=== PATIENT | female | born 1955 | race Caucasian/White ===

== ENCOUNTER → 2018-08-06 08:11 | Outpatient (CLI) | payer OTHER, SELFPAY ==
[2018-08-06 10:41] LABS: Anion Gap 7 (5-15); BUN 16 mg/dL (7-18); BUN/Creat Ratio 17.5 RATIO (10-20); Calcium,Total 8.9 mg/dL (8.5-10.1); Chloride 111 mmol/L (98-107); Cholesterol 145 mg/dL (200); Creatinine, Serum 0.92 mg/dL (0.55-1.02); EST Glomerular Filtration Rate 65 mL/min (>60); Est Glom Filt Rate - Afr Amer 79 mL/min (>60); Glucose 117 mg/dL (74-106); High Density Lipoprotein 47 mg/dL; Potassium 4.4 mmol/L (3.5-5.1); Sodium Level 143 mmol/L (136-145); Triglycerides 80 mg/dL; Very Low Density Lipoprotein 16 mg/dL (5-40)
[2018-08-06 10:44] LABS: Vitamin D,25 Hydroxy 23.4 ng/mL (29.95-100.01)
== END ==
PROVIDERS: Family Provider Family Medicine; PCP Family Medicine; Visit Provider Family Medicine
DX: Z00.00 Encounter for general adult medical examination without abnormal findings (principal)
CPT/HCPCS: 36415; 80048; 80061; 82306

== ENCOUNTER → 2019-08-09 09:36 | Outpatient (CLI) | payer OTHER, SELFPAY ==
[2017-10-25 11:29] VITALS: BMI 24.5
[2019-08-09 12:34] LABS: Hemoglobin A1c 5.9 % (4.2-6.3)
[2019-08-09 12:36] LABS: Vitamin D,25 Hydroxy 24.2 ng/mL (29.95-100.01)
[2019-08-09 12:40] LABS: ALB/GLOB Ratio 1.2 RATIO (0.9-2.4); AST(SGOT) 9 U/L (15-37); Alanine Aminotransfer ALT/SGPT 20 U/L (13-56); Albumin, Serum 3.6 g/dL (3.2-5.0); Alkaline Phosphatase 77 U/L (45-117); Anion Gap 5 (5-15); BUN 16 mg/dL (7-18); BUN/Creat Ratio 16.8 RATIO (10-20); Calcium,Total 8.8 mg/dL (8.5-10.1); Chloride 111 mmol/L (98-107); Cholesterol 175 mg/dL (200); Creatinine, Serum 0.95 mg/dL (0.55-1.02); EST Glomerular Filtration Rate 62 mL/min (>60); Est Glom Filt Rate - Afr Amer 75 mL/min (>60); Glucose 113 mg/dL (74-106); High Density Lipoprotein 61 mg/dL; Potassium 4.3 mmol/L (3.5-5.1); Protein, Total 6.6 g/dL (6.4-8.2); Sodium Level 143 mmol/L (136-145); Thyroid Stim Hormone (TSH) 2.03 uIU/mL (0.358-3.74); Triglycerides 80 mg/dL; Very Low Density Lipoprotein 16 mg/dL (5-40)
== END ==
PROVIDERS: Nurse Practitioner Family; Family Provider Family Medicine; PCP Family Medicine; Visit Provider Family Medicine
DX: Z00.00 Encounter for general adult medical examination without abnormal findings (principal); E55.9 Vitamin D deficiency, unspecified; R73.01 Impaired fasting glucose; R63.5 Abnormal weight gain
CPT/HCPCS: 36415; 80053; 80061; 82306; 83036; 84443

== ENCOUNTER → 2020-01-03 15:12 | Outpatient (CLI) | payer OTHER, SELFPAY ==
[2017-10-25 11:29] VITALS: BMI 24.5
--- NOTE | 2020-01-03 15:17 | RAD_ITS ---
STUDY: X-RAY CHEST REASON FOR EXAM: Female, 64 years old. sob and cough TECHNIQUE: PA and lateral views of the chest. COMPARISON: 10/25/2017 FINDINGS: The lungs are clear and expanded. There is no demonstrated pleural abnormality. Normal size heart. Normal mediastinum and juvenal. Normal visualized pulmonary arteries. Normal visualized aortic arch and descending thoracic aorta. Normal visualized thoracic spine. Normal visualized ribs, clavicles, and shoulders. There is no demonstrated abnormality of the visualized soft tissue structures of the upper abdomen. RAD/Chest PA and Lateral IMPRESSION: Normal x-ray examination of the chest. Electronically Signed: Tim Narvaez MD at 15:38 EST Tel , Service support ,
[2020-01-03 17:33] LABS: Absolute Lymphocyte Count 1.63 X10^3/uL (0.83-4.51); Absolute Neutrophil Count 3.1 X10^3/uL (2.0-7.7); Basophil# 0.02 X10^3/uL; Basophil% 0.4 % (0-1); Eosinophils% 1.8 % (0-5); Hematocrit 41.8 % (37-47); Hemoglobin 13.1 g/dL (12.0-15.0); Lymphocyte # 1.63 X10^3/ul (4.0); Lymphocyte % 29.9 % (19-41); Mean Corp Hgb Conc 31.3 g/dL (32-36); Mean Corpuscular Hgb 30.4 pg (27.0-32.0); Mean Platelet Vol. 9.7 fl (6.2-12.0); Monocyte# 0.61 X10^3/uL; Monocyte% 11.2 % (0-10); NRBC Flagged by Analyzer 0 % (0-5); Neutrophil # 3.07 X10^3/uL (2.7-7.7); Neutrophil % 56.3 % (47-70); Platelet Count 306 K/mm3 (150-450); RBC Distribution Width CV 12.7 % (11.6-14.6); RBC Distribution Width SD 45.3 fl (35.1-43.9); Red Blood Count 4.31 M/mm3 (4.2-5.4); White Blood Count 5.5 K/mm3 (4.4-11.0)
[2020-01-03 17:58] LABS: Vitamin D,25 Hydroxy 16.8 ng/mL (29.95-100.01)
[2020-01-03 18:06] LABS: ALB/GLOB Ratio 1.1 RATIO (0.9-2.4); AST(SGOT) 20 U/L (15-37); Alanine Aminotransfer ALT/SGPT 35 U/L (13-56); Albumin, Serum 3.7 g/dL (3.2-5.0); Alkaline Phosphatase 90 U/L (45-117); Anion Gap 4 (5-15); BUN 18 mg/dL (7-18); BUN/Creat Ratio 19.5 RATIO (10-20); Chloride 108 mmol/L (98-107); Creatinine, Serum 0.92 mg/dL (0.55-1.02); EST Glomerular Filtration Rate 65 mL/min (>60); Est Glom Filt Rate - Afr Amer 78 mL/min (>60); Globulin 3.3 g/dL (2.2-4.2); Glucose 93 mg/dL (74-106); Sodium Level 141 mmol/L (136-145); Thyroid Stim Hormone (TSH) 2.63 uIU/mL (0.358-3.74)
== END ==
PROVIDERS: PCP Family Medicine; Referring Provider Nurse Practitioner Adult Health; Visit Provider Nurse Practitioner Adult Health
DX: R06.09 Other forms of dyspnea (principal); E55.9 Vitamin D deficiency, unspecified; R53.83 Other fatigue
CPT/HCPCS: 36415; 71046; 80053; 82306; 84443; 85025

== ENCOUNTER → 2020-07-05 10:36 | Outpatient (CLI) | payer OTHER, SELFPAY ==
[2017-10-25 11:29] VITALS: BMI 24.5
[2020-07-05 12:47] LABS: Absolute Lymphocyte Count 1.62 X10^3/uL (0.83-4.51); Absolute Neutrophil Count 2.6 X10^3/uL (2.0-7.7); Basophil# 0.02 X10^3/uL; Basophil% 0.4 % (0-1); Eosinophil# 0.05 X10^3/uL; Eosinophils% 1.1 % (0-5); Hematocrit 41.7 % (37-47); Hemoglobin 13.2 g/dL (12.0-15.0); Lymphocyte # 1.62 X10^3/ul (4.0); Lymphocyte % 34.5 % (19-41); Mean Corp Hgb Conc 31.7 g/dL (32-36); Mean Corpuscular Hgb 30.7 pg (27.0-32.0); Mean Platelet Vol. 9.8 fl (6.2-12.0); Monocyte# 0.44 X10^3/uL; Monocyte% 9.4 % (0-10); NRBC Flagged by Analyzer 0 % (0-5); Neutrophil # 2.56 X10^3/uL (2.7-7.7); Neutrophil % 54.4 % (47-70); Platelet Count 297 K/mm3 (150-450); RBC Distribution Width SD 46.1 fl (35.1-43.9); White Blood Count 4.7 K/mm3 (4.4-11.0)
[2020-07-05 13:06] LABS: Vitamin D,25 Hydroxy 33.9 ng/mL
[2020-07-05 13:15] LABS: Anion Gap 4 (5-15); BUN 16 mg/dL (7-18); BUN/Creat Ratio 17.9 RATIO (10-20); Calcium,Total 8.8 mg/dL (8.5-10.1); Chloride 111 mmol/L (98-107); Cholesterol 187 mg/dL (200); Creatinine, Serum 0.89 mg/dL (0.55-1.02); EST Glomerular Filtration Rate 67 mL/min (>60); Est Glom Filt Rate - Afr Amer 81 mL/min (>60); Glucose 115 mg/dL (74-106); High Density Lipoprotein 57 mg/dL; Potassium 4.3 mmol/L (3.5-5.1); Sodium Level 142 mmol/L (136-145); Triglycerides 91 mg/dL; Very Low Density Lipoprotein 18 mg/dL (5-40)
== END ==
PROVIDERS: PCP Family Medicine; Referring Provider Family Medicine; Visit Provider Family Medicine
DX: Z00.00 Encounter for general adult medical examination without abnormal findings (principal); E55.9 Vitamin D deficiency, unspecified; R06.02 Shortness of breath
CPT/HCPCS: 36415; 80048; 80061; 82306; 85025

== ENCOUNTER → 2020-08-11 10:05 | Outpatient (CLI) | payer OTHER, SELFPAY | PROVIDERS: PCP Family Medicine; Referring Provider Physician Assistant Surgical; Visit Provider Physician Assistant Surgical | DX: Z11.59 Encounter for screening for other viral diseases (principal) | CPT/HCPCS: 87635; C9803; U0003 ==

== ENCOUNTER → 2020-08-14 06:25 | Outpatient (CLI) | payer OTHER, SELFPAY ==
--- NOTE | 2020-08-14 18:32 | STRESSREP ---
Stress Test Report Exercise myocardial perfusion stress test. 65-year-old lady with a history of chest pain. Stress protocol: Resting KG demonstrates normal sinus rhythm with a rate of 62 bpm normal intervals are noted resting blood pressure is 144/86 mmHg. The patient exercised according to regular Long protocol for a total duration of 4 minutes and 31 seconds. The maximum heart rate attained was 141 bpm which was 92% of max impacted heart rate the maximum workload was 6.4 metabolic equivalents. The patient maintained sinus rhythm throughout the recording. At rest there were no ST or T wave changes noted to suggest ischemia at peak exercise nonspecific ST changes were noted upsloping which did not meet the criteria for ischemia. No clinical angina was noted the test was terminated due to the target heart rate being achieved and dyspnea. The resting blood pressure was 144/86 with a peak blood pressure 188/90 mmHg. Myocardial perfusion protocol. 10.8 mCi of technetium 99m sestamibi was injected at rest. The patient exercised for 4-1/2 minutes and at peak exercise 31.9 mCi of technetium 99m sestamibi was injected stress images were obtained stress and rest images were reconstructed and compared in the short axis vertical long horizontal long axis. Gated images were also obtained per Perfusion SPECT analysis: Review of the stress images demonstrate normal uptake of tracer noted in all areas of the myocardium the resting images similar demonstrate normal uptake of tracer noted in all areas of the myocardium with no reversibility to suggest ischemia. Gated SPECT analysis: The gated ejection fraction is 59%. Conclusion: Normal exercise myocardial perfusion stress test at a moderate workload. Preserved ejection fraction.
== END ==
PROVIDERS: PCP Family Medicine; Referring Provider Family Medicine; Visit Provider Family Medicine
DX: R06.02 Shortness of breath (principal)
CPT/HCPCS: 78452; 93017; A9500; A4216; J2785

== ENCOUNTER → 2020-08-15 11:51 | Outpatient (CLI) | payer OTHER, SELFPAY ==
[2020-08-15 12:57] LABS: Absolute Lymphocyte Count 1.78 X10^3/uL (0.83-4.51); Absolute Neutrophil Count 3.2 X10^3/uL (2.0-7.7); Basophil# 0.02 X10^3/uL; Basophil% 0.4 % (0-1); Eosinophil# 0.03 X10^3/uL; Eosinophils% 0.5 % (0-5); Hemoglobin 13.1 g/dL (12.0-15.0); Lymphocyte # 1.78 X10^3/ul (4.0); Lymphocyte % 32.2 % (19-41); Mean Corpuscular Hgb 30.5 pg (27.0-32.0); Mean Corpuscular Volume 95.6 fL (81-99); Mean Platelet Vol. 9.6 fl (6.2-12.0); Monocyte# 0.44 X10^3/uL; NRBC Flagged by Analyzer 0 % (0-5); Neutrophil # 3.24 X10^3/uL (2.7-7.7); Neutrophil % 58.5 % (47-70); Platelet Count 291 K/mm3 (150-450); RBC Distribution Width SD 45.9 fl (35.1-43.9); Red Blood Count 4.29 M/mm3 (4.2-5.4); White Blood Count 5.5 K/mm3 (4.4-11.0)
[2020-08-15 13:34] LABS: Anion Gap 4 (5-15); BUN 18 mg/dL (7-18); BUN/Creat Ratio 20.8 RATIO (10-20); Chloride 111 mmol/L (98-107); Creatinine, Serum 0.87 mg/dL (0.55-1.02); EST Glomerular Filtration Rate 69 mL/min (>60); Est Glom Filt Rate - Afr Amer 84 mL/min (>60); Glucose 90 mg/dL (74-106); Sodium Level 142 mmol/L (136-145)
== END ==
PROVIDERS: PCP Family Medicine; Referring Provider Physician Assistant Surgical; Visit Provider Physician Assistant Surgical
DX: Z01.818 Encounter for other preprocedural examination (principal)
CPT/HCPCS: 36415; 80048; 85025

== ENCOUNTER → 2021-06-29 07:02 | Outpatient (CLI) | payer OTHER, SELFPAY ==
[2021-06-29 10:28] LABS: Vitamin D,25 Hydroxy 35.5 ng/mL
[2021-06-29 10:30] LABS: Anion Gap 6 (5-15); BUN 22 mg/dL (7-18); BUN/Creat Ratio 22.5 RATIO (10-20); Calcium,Total 9.1 mg/dL (8.5-10.1); Chloride 111 mmol/L (98-107); Cholesterol 194 mg/dL (200); Creatinine, Serum 0.98 mg/dL (0.55-1.02); EST Glomerular Filtration Rate 60 mL/min (>60); Est Glom Filt Rate - Afr Amer 73 mL/min (>60); Glucose 107 mg/dL (74-106); High Density Lipoprotein 41 mg/dL; Potassium 4.2 mmol/L (3.5-5.1); Sodium Level 142 mmol/L (136-145); Thyroid Stim Hormone (TSH) 2.97 uIU/mL (0.358-3.74); Triglycerides 147 mg/dL; Very Low Density Lipoprotein 29 mg/dL (5-40)
== END ==
PROVIDERS: PCP Family Medicine; Referring Provider Family Medicine; Visit Provider Family Medicine
DX: Z00.00 Encounter for general adult medical examination without abnormal findings (principal)
CPT/HCPCS: 36415; 80048; 80061; 82306; 84443

== ENCOUNTER → 2021-07-25 08:48 | Outpatient (CLI) | payer OTHER, SELFPAY ==
--- NOTE | 2021-07-25 08:54 | BD_ITS ---
STUDY: DUAL ENERGY X-RAY ABSORPTIOMETRY / DXA REASON FOR EXAM: Female, 66 years old. [id number]. Patient is postmenopausal. TECHNIQUE: Bone Mineral Density (BMD) measurements of lumbar spine and bilateral hips were obtained. COMPARISON: Comparison is made with prior study to 08/13/2016. FINDINGS: Lumbar Spine (L1-L4): g/cm2 (0.784) / T-score (-2.4) / Z-score (-0.4) Findings are suggestive of osteopenia with a high fracture risk. Left Femur Total: g/cm2 (0.741) / T-score (-1.6) / Z-score (-0.3) Left Femoral Neck: g/cm2 (0.594) / T-score (-2.3) / Z-score (-0.6) Right Femur Total: g/cm2 (0.586) / T-score (-2.4) / Z-score (-0.7) Right Femoral Neck: g/cm2 (0.754) / T-score (-1.5) / Z-score (-0.1) The T-Scores on the most recent prior examination were: Lumbar Spine (L1-L4): There has been worsening of bone density since the previous examination. Left Femur Total: which represents a worsening of 7.4%. Right Femur Total: which represents a worsening of 4.3%. BD/Dexa Bone Density Study IMPRESSION: The patient is considered osteopenic as outlined below according to World Manuel Organization (WHO) criteria with a high fracture risk. There has been worsening of bone density since the previous examination. Reference Information: The T-score is the number of standard deviations above or below the standard which is normal for young adults at their peak bone mineral density. The World Health Organization (WHO) interprets the T-scores as follows: Above -1 Normal bone density Between -1 and -2.5 Osteopenia Equal to / or below -2.5 Osteoporosis As a practical clinical guideline, osteopenia may be graded as follows: Mild -1 through -1.5 Moderate -1.6 through -2.0 Severe -2.1 through -2.4 The Z-score is the number of standard deviations above or below age-matched controls. A Z-score of less than -1.5 would be considered abnormal. References: 1. NIH Osteoporosis and Related Bone Diseases www osteo.org 2. International Society for Clinical Densitometry www iscd.org 3. National Osteoporosis Foundation www nof.org Electronically Signed: Jimbo Olivo MD at 8:27 EDT , Service support ,
== END ==
PROVIDERS: PCP Family Medicine; Referring Provider Family Medicine; Visit Provider Family Medicine
DX: Z78.0 Asymptomatic menopausal state (principal)
CPT/HCPCS: 77080

== ENCOUNTER 2022-02-04 08:25 | Outpatient (CLI) | payer OTHER, SELFPAY ==
[2022-02-04 10:42] LABS: Anion Gap 5 (5-15); BUN 15 mg/dL (7-18); BUN/Creat Ratio 17.6 RATIO (10-20); Calcium,Total 8.9 mg/dL (8.5-10.1); Chloride 112 mmol/L (98-107); Cholesterol 225 mg/dL (200); Creatinine, Serum 0.85 mg/dL (0.55-1.02); EST Glomerular Filtration Rate 71 mL/min (>60); Est Glom Filt Rate - Afr Amer 85 mL/min (>60); Glucose 124 mg/dL (74-106); High Density Lipoprotein 49 mg/dL; Sodium Level 142 mmol/L (136-145); Triglycerides 123 mg/dL; Very Low Density Lipoprotein 25 mg/dL (5-40)
== END 2022-02-04 23:59 | disposition home or self-care (01) ==
PROVIDERS: PCP Family Medicine; Referring Provider Family Medicine; Visit Provider Family Medicine
DX: R41.3 Other amnesia (principal); I10 Essential (primary) hypertension
CPT/HCPCS: 36415; 80048; 80061; 84443

== ENCOUNTER 2022-02-13 09:27 | Outpatient (CLI) | payer OTHER, SELFPAY | END 2022-02-13 23:59 | disposition home or self-care (01) | LOC: MFPLAB 09:28 | PROVIDERS: PCP Family Medicine; Referring Provider Family Medicine; Visit Provider Family Medicine | DX: R69 Illness, unspecified (principal) ==

== ENCOUNTER 2022-07-01 15:44 | Observation (INO) | payer OTHER, SELFPAY ==
[2022-07-01] VITALS (12 sets, daily range): BP systolic 131–150; BP diastolic 57–96; PULSE 67–87; RESP 16–18; TEMP 36.1–37.2; O2SAT 95–97; BMI 27.1; BMI 14.0; BMI 29.0
--- NOTE | 2022-07-01 15:47 | NURSING ---
1542 STROKE ALERT CALLED
--- NOTE | 2022-07-01 15:48 | EKG12_ITS ---
Test Reason : stroke Blood Pressure : / mmHG Vent. Rate : 079 BPM Atrial Rate : 079 BPM P-R Int : 168 ms QRS Dur : 086 ms QT Int : 388 ms P-R-T Axes : 070 -20 068 degrees QTc Int : 444 ms Normal sinus rhythm Low voltage QRS (Limb Leads) Confirmed by JASPAL ARIZA, YANETH ([id number]), visual effects editor JIM WILSON ([id number]) on 07/03/2022 9:41:52 AM Referred By: Dale Confirmed By:YANETH SHAY MD
--- NOTE | 2022-07-01 15:48 | CT_ITS ---
We are attempting to reach an attending provider to discuss findings. An addendum with communication details will be sent when the communication is complete. STUDY: CT HEAD STROKE PROTOCOL W/O CONTRAST INJECTION REASON FOR EXAM: Female, 66 years old. Neuro deficit, acute, stroke suspected RADIATION DOSAGE (If Supplied By Facility): CTDIvol = ( ) mGy, DLP = ( ) mGycm TECHNIQUE: Transaxial CT imaging of the brain was performed without administration of intravenous contrast material. Individualized dose optimization techniques were used for this CT. COMPARISON: No relevant priors. FINDINGS: Normal soft tissue structures. Normal calvarium. Normal size ventricles and extra-axial spaces for the patient''s age. Normal white matter tracts of the cerebral hemispheres. Normal basal ganglia and thalami. Normal brainstem. Normal cerebellum. There is no intracranial hemorrhage. There are no findings of an acute ischemic infarction. Normal visualized paranasal sinuses. ASPECT score: CT/STROKE Brain/Head without Cont IMPRESSION: Normal unenhanced CT scan of the brain. Electronically Signed: Tim Narvaez MD at 16:04 EDT ,
--- NOTE | 2022-07-01 15:49 | CT_ITS ---
We are attempting to reach an attending provider to discuss findings. An addendum with communication details will be sent when the communication is complete. STUDY: CTA HEAD AND NECK WITH CONTRAST REASON FOR EXAM: Female, 66 years old. Neuro deficit, acute, stroke suspected RADIATION DOSAGE (If Supplied By Facility): CTDIvol = ( 18.01 ) mGy, DLP = ( 717.10 ) mGycm TECHNIQUE: CT angiography was performed with a multi-detector CT scanner. Data acquisition was obtained from the skull base through the vertex following intravenous administration of IV 100mL Isovue-370. MIP images were reconstructed from the axial data set. Post-processing of the angiographic images was performed, with multiplanar reformation and 3D reconstruction. Individualized dose optimization techniques were used for this CT. COMPARISON: No relevant priors. FINDINGS: Normal bilateral petrous carotid arteries. Normal right cavernous carotid artery with a normal supraclinoid bifurcation. Normal left cavernous carotid artery with a normal supraclinoid bifurcation. Normal right A1 segments of the anterior cerebral artery. Normal left A1 segments of the anterior cerebral artery. Normal intact anterior communicating artery (ACOM). Normal bilateral A2 segments of the anterior cerebral arteries. Normal right M1 and M2 segments of the middle cerebral arteries, with a normal M1 bifurcation. Normal left M1 and M2 segments of the middle cerebral arteries, with a normal M1 bifurcation. Normal right posterior communicating artery (PCOM). Normal left posterior communicating artery (PCOM). Normal bilateral vertebral arteries. Normal basilar artery with a normal basilar bifurcation. The visualized bilateral superior cerebellar (SCA) arteries are normal. Normal bilateral P1, P2 and visualized P3 segments of the posterior cerebral arteries. There is no demonstrated aneurysm of the kar[place] of [place]. There is no demonstrated abnormality of the visualized brain. AORTIC ARCH: Normal visualized aortic arch. Normal origins of the brachiocephalic, left common carotid, and left subclavian arteries. RIGHT CAROTID ARTERIES: Normal right common carotid artery (CCA). Normal right common carotid bulb. Normal origin of the right internal carotid (ICA) artery without a hemodynamically significant stenosis. Normal visualized cervical portion of the right internal carotid artery. Normal origin of the right external carotid artery (ECA). LEFT CAROTID ARTERIES: Normal left common carotid artery (CCA). Normal left common carotid bulb. Normal origin of the left internal carotid (ICA) artery without a hemodynamically significant stenosis. Normal visualized cervical portion of the left internal carotid artery. Normal origin of the left external carotid artery (ECA). VERTEBRAL ARTERIES: Normal bilateral vertebral arteries. CT/STROKE CTA Head AND Neck W/Con IMPRESSION: Normal CTA Head and neck with contrast. Electronically Signed: Tim Narvaez MD at 16:24 EDT ,
--- NOTE | 2022-07-01 15:49 | ED.VIS.STROK ---
HPI History of Present Illness Chief Complaint: Neuro S/Sx Informant: patient Onset/Context/Timing Onset: Today Context: - (noticed upon waking up from nap and talking on phone) Timing: Continuous Quality and Location: Positive for Slurred Speech and Expressive Aphasia Current Severity: Gone Maximum Severity: Severe Worsened by: nothing Relieved by: nothing in particular Associated Symptoms Associated Symptoms: Negative for Headache, Nausea, Vomiting or Chest Pain Narrative Narrative: Patient had a mammogram this morning that was routine and she was fine. She went to take a nap at around 1300, she woke up around 1400 with symptoms that she did not notice until she went to talk on the phone. She was talking to a family member who said she was not making sense and her speech was slurred. The patient did not notice any right, or left, upper extremity weakness or numbness at the time nor any other acute symptoms. She states the symptoms lasted somewhere between 30 and 60 minutes but she is estimating, and now she feels better except for she feels a little foggy. Her vision is the same as it usually is. She is healthy and takes medication for blood pressure, but no anticoagulants or antiplatelets. No recent illness. No recent head injury. Recent Illness/Hospitalization: No [facility] Medical History (Updated 07/01/22 @ 16:[address] Andrés Cuellar MD) Breast cancer Hyperlipidemia Hypertension Home Medications lisinopril 20 mg tablet 20 mg PO DAILY 07/01/22 [History Last Taken Unknown] rosuvastatin 5 mg tablet 5 mg PO DAILY 07/01/22 [History Last Taken Unknown] zolpidem 10 mg tablet 10 mg PO QHS PRN Insomnia 07/01/22 [History Last Taken Unknown] Allergy/AdvReac Type Severity Reaction Status Date / Time No Known Allergies Allergy Verified 07/01/22 15:48 Social History Smoking Status: Unknown if ever smoked ROS ROS ED Constitutional Constitutional ED: Denies chills or fever(s) Eyes Eyes: Denies change in vision or diplopia ENT ENT ED: Denies rhinorrhea or sore throat Cardiovascular Cardiovascular: Denies chest pain or palpitations Respiratory/Chest Respiratory/Chest: Denies cough or dyspnea Gastrointestinal Gastrointestinal: Denies abdominal pain, diarrhea, nausea or vomiting Genitourinary Genitourinary ED: Denies dysuria or hematuria Musculoskeletal Musculoskeletal: Denies back pain or neck pain Integumentary Denies abscess or rash Neurologic Neurologic: Reports as per HPI and abnormal speech; Denies headache(s), other visual disturbances, paresthesias, seizures, syncope or weakness Psychiatric Psychiatric: Denies anxiety or suicidal thoughts EXAM Physical Exam Const Vital Signs: 07/01/22 15:45 07/01/22 15:48 07/01/22 15:52 Temperature 96.9 F L 96.9 F L Temperature Source Temporal Temporal Pulse Rate 85 Respiratory Rate 18 Blood Pressure 139/90 H Blood Pressure Mean 106 Pulse Ox 96 Oxygen Delivery Method Room Air Room Air 07/01/22 15:48 Temperature Temperature Source Pulse Rate 77 Respiratory Rate 18 Blood Pressure 150/77 H Blood Pressure Mean 101 Pulse Ox 96 Oxygen Delivery Method Room Air Positive well nourished and well developed General Appearance ED: well developed and NAD HEENT Reports moist mucous membranes normocephalic and atraumatic Eyes PERRL and EOMs intact bilaterally Neck full ROM and supple Resp normal respiratory effort and clear to auscultation bilaterally Cardio regular rate, regular rhythm and no murmurs GI non-tender and non-distended Auscultation: normoactive bowel sounds Palpation: soft Back/Spine no CVA tenderness General Back: other FROM Extremity normal to inspection General Extremety ED: Negative for edema, pulses abnormal or tenderness General Extremity: Negative for edema or pulses abnormal Neuro oriented x3, CN's II-XII intact bilaterally and no sensory deficits noted Neuro Narrative: Normal speech no aphasia. Sensorium / Orientation: awake and alert Motor Exam: strength 5/5 throughout Psych mental status grossly normal Skin no rashes or lesions noted and no wounds STROKE Vital Signs/Narrative: Vital Signs Temp Pulse Resp BP Pulse Ox O2 Del Method 07/01/22 15:48 77 18 150/77 H 96 Room Air 07/01/22 15:52 Room Air 07/01/22 15:48 96.9 F L 07/01/22 15:45 96.9 F L 85 18 139/90 H 96 Room Air NIHSS Initial: 1a Level of Consciousness: 0 1b LOC Questions (Score 2 if aphasic/stupor): 0 1c LOC Commands (Only score 1st attempt): 0 2 Best Gaze (If aphasic, use reflexive mvmts.): 0 3 Visual: 0 4 Facial Palsy: 0 5 Motor Arm Right (UN = amputation/fusion): 0 5 Motor Arm Left: 0 6 Motor Leg Right: 0 6 Motor Leg Left: 0 7 Limb ataxia (Only + if out of proportion): 0 8 Sensory (Aphasia/stupor=0 or 1, coma=2): 0 9 Best Language: 0 10 Dysarthria (mute, coma=2, intubated=UN): 0 11 Extinction and Inattention (only scored if +): 0 Total Score: 0 MDM MDM MDM Narrative Medical decision making narrative: CT and CTA of the head and neck are both negative for any acute. Given that her symptoms are totally resolved, she is not a tPA candidate, [facility] neurology is in agreement with that as well. Likely a TIA. I recommend admission for further work-up and observation. Patient is amenable. Lab Data Attestation: I reviewed the patient's lab results. Labs: Laboratory Results - last 24 hr 07/01/22 07/01/22 07/01/22 15:50 15:50 15:50 WBC 8.1 RBC 4.41 Hgb 13.7 Hct 41.9 MCV 95.0 MCH 31.1 MCHC 32.7 RDW Std Deviation 45.6 H RDW Coeff of Jasbir 13.0 Plt Count 293 MPV 9.2 Immature Gran % (Auto) 0.200 Neut % (Auto) 63.8 Lymph % (Auto) 26.6 Taliaferro % (Auto) 8.3 Eos % (Auto) 0.9 Baso % (Auto) 0.2 Absolute Neuts (auto) 5.2 Absolute Lymphs (auto) 2.15 Nucleated RBC % 0 PT 12.4 INR 1.0 APTT 23.9 L Sodium 143 Potassium 3.9 Chloride 112 H Carbon Dioxide 27.0 Anion Gap 4 L BUN 16 Creatinine 0.76 Estim Creat Clear Calc 27.68 Est GFR (MDRD) Af Amer 97 Est GFR (MDRD) Non-Af 80 BUN/Creatinine Ratio 21.0 H Glucose 114 H Calcium 8.8 Troponin I High Sens 6 Radiography Chest X-Ray - ED: 1 View, Read by ED Physician, No Acute Disease and No Infiltrates Diagnostic Testing: Clinical Impression(s) from Imaging Studies Brain CT 07/01/22 15:48 IMPRESSION: Normal unenhanced CT scan of the brain. Electronically Signed: Tim Narvaez MD at 16:04 EDT Reading Location ID and State: [phone] / [place] Tel , Service support , ADDENDUM: 07/01/22 1613 IMPRESSION: Normal unenhanced CT scan of the brain. N.B. : The above Results were Read Back by Tim Narvaez MD to Dr. Polo MD, and understanding confirmed on 07/01/2022 16:06:57 (ET). Electronically Signed: Tim Narvaez MD at 16:04 EDT Reading Location ID and State: [phone] / [place] Tel , Service support , Head/Neck CTA 07/01/22 15:49 IMPRESSION: Normal CTA Head and neck with contrast. Electronically Signed: Tim Narvaez MD at 16:24 EDT Reading Location ID and State: [phone] / [place] Tel , Service support , ADDENDUM: 07/01/22 1643 IMPRESSION: Normal CTA Head and neck with contrast. N.B. : The above Results were Read Back by Tim Narvaez MD to Dr. Polo MD, and understanding confirmed on 07/01/2022 16:36:17 (ET). Electronically Signed: Tim Narvaez MD at 16:24 EDT Reading Location ID and State: [phone] / [place] Tel , Service support , Chest X-Ray 07/01/22 16:20 IMPRESSION: No active disease. Electronically Signed: Tim Narvaez MD at 16:38 EDT Reading Location ID and State: [phone] / [place] Tel , Service support , Rhythm Strip Rhythm Strip: Sinus Rhythm Rate: 75 Ectopy: None EKG Initial EKG: Attestation: I personally reviewed and interpreted this EKG as follows: Interpretation: Sinus Rhythm and No Acute Injury Pattern Stroke Documentation Questions Stroke Team Activated: Yes Reviewed Inclusion/Exclusion criteria: Yes Was Patient considered for Endovascular Intervention?: No-CTA negative, determined not to be an endovascular candidate IV Alteplase (t-PA) Administered: No (sx resolved, NIHSS 0) Critical Care Time Critical Care Time: Yes Critical care time (excluding procedures): 30-74 minutes (35 min), Including time spent:, Discussing w/Patient &/or Family/[employer] Specialist, Discussing w/Consultants, Arranging Admission or Transfer and Performing Direct Patient Care at Bedside Discharge Plan Dx/Rx/DC Orders Clinical Impression: Brain TIA Disposition Disposition: Acute Care [facility]
[2022-07-01 15:57] LABS: Absolute Lymphocyte Count 2.15 X10^3/uL (0.83-4.51); Absolute Neutrophil Count 5.2 X10^3/uL (2.0-7.7); Basophil# 0.02 X10^3/uL; Basophil% 0.2 % (0-1); Eosinophil# 0.07 X10^3/uL; Eosinophils% 0.9 % (0-5); Hematocrit 41.9 % (37-47); Hemoglobin 13.7 g/dL (12.0-15.0); Lymphocyte # 2.15 X10^3/ul (0.83-4.51); Lymphocyte % 26.6 % (19-41); Mean Corp Hgb Conc 32.7 g/dL (32-36); Mean Corpuscular Hgb 31.1 pg (27.0-32.0); Mean Platelet Vol. 9.2 fl (6.2-12.0); Monocyte# 0.67 X10^3/uL; Monocyte% 8.3 % (0-10); NRBC Flagged by Analyzer 0 % (0-5); Neutrophil # 5.15 X10^3/uL (2.7-7.7); Neutrophil % 63.8 % (47-70); Platelet Count 293 K/mm3 (150-450); RBC Distribution Width SD 45.6 fl (35.1-43.9); Red Blood Count 4.41 M/mm3 (4.2-5.4); White Blood Count 8.1 K/mm3 (4.4-11.0)
[2022-07-01 16:04] LABS: Prothrombin Time (Protime)PT. 12.4 SECONDS (11.7-14.9)
[2022-07-01 16:06] LABS: Partial Thromboplast Time 23.9 Seconds (24.1-36.2)
[2022-07-01 16:19] LABS: Anion Gap 4 (5-15); BUN 16 mg/dL (7-18); Calcium,Total 8.8 mg/dL (8.5-10.1); Chloride 112 mmol/L (98-107); Creatinine, Serum 0.76 mg/dL (0.55-1.02); EST Glomerular Filtration Rate 80 mL/min (>60); Est Glom Filt Rate - Afr Amer 97 mL/min (>60); Estimated Creatinine Clearance 27.68 ml/min; Glucose 114 mg/dL (74-106); Potassium 3.9 mmol/L (3.5-5.1); Sodium Level 143 mmol/L (136-145); Troponin-I HS 6 pg/mL (3.0-54.0)
--- NOTE | 2022-07-01 16:20 | RAD_ITS ---
STUDY: X-RAY CHEST REASON FOR EXAM: Female, 66 years old. Neuro deficit, acute, stroke suspected TECHNIQUE: Single AP portable view of the chest. COMPARISON: 01/03/2020 FINDINGS: Status post right axillary lymph node dissection. The lungs are clear and expanded. There is no demonstrated pleural abnormality. Normal size heart. Normal mediastinum and juvenal. Normal visualized pulmonary arteries. Normal visualized aortic arch and descending thoracic aorta. Normal visualized thoracic spine. Normal visualized ribs, clavicles, and shoulders. There is no demonstrated abnormality of the visualized soft tissue structures of the upper abdomen. RAD/Chest 1 View IMPRESSION: No active disease. Electronically Signed: Tim Narvaez MD at 16:38 EDT ,
--- NOTE | 2022-07-01 16:33 | CHAPLAIN ---
Type of Pastoral Visit ___ Initial Visit ___ Follow-up Visit ___ On-call Visit ___ General Patient Visit ___ Spiritual Assessment ___ Family Conference ___ Bereavement _x__ Rapid Response ___ Code Blue ___ Other (describe below) Pastoral Care Referral From ___ Patient ___ Family ___ Nurse ___ Physician ___ Mixing Machine Tender ___ Soil Expert ___ Other (describe below) Sacrament/Intervention ___ Active listening ___ Anointing ___ Buddhism ___ Bereavement ___ Communion ___ Jennifer exploration ___ ___ Life review ___ Prayer ___ Reconciliation ___ Sacrament of Sick _x__ Supportive presence ___ Wedding ___ Other (describe below) Pastoral Comments came to stroke alert; patient was waiting to be evaluated by [facility] doctor; family member was present but unable to give information or to receive support at this time; staff indicated situation was under control
--- NOTE | 2022-07-01 18:21 | NURSING ---
PCU OBS TIA CIARAN
--- NOTE | 2022-07-01 18:24 | MRI_ITS ---
INDICATION: TIA EXAMINATION: MRI - MR Brain W/O Contrast TECHNIQUE: Multiplanar and multisequence MR images of the brain were obtained with gadolinium. IV Contrast Dosage and Agent: None. COMPARISON: None. FINDINGS: HEMISPHERES, CEREBELLUM AND BRAINSTEM: 1. The cerebral parenchyma, ventricular system, subarachnoid spaces have normal configuration and density. There is a normal gyral pattern. There is normal marinelli/white differentiation. No midline shift.. 2. Minimal involutional changes and minimal chronic deep white matter disease. 3. No evidence fluid restriction or hemosiderin deposition. 4. No intraparenchymal mass, hemorrhage, or acute territorial infarct. 5. The cerebellum, brainstem, basilar and suprasellar cisterns have normal appearance. No Chiari malformation. PITUITARY: Infundibulum and pituitary have normal configuration. Midline structures appear normal. CSF SPACES: Appropriate for age. No hydrocephalus. Basal cisterns are patent. VESSELS: 1. There are normal flow voids noted in the great vessels at the skull base ORBITS AND PARANASAL SINUSES: 1. Both globes, extraocular muscles, optic nerves and retrobulbar fat appear unremarkable. 2. Paranasal sinuses are clear. BONY ELEMENTS: Bony elements of the cranial vault, facial skeleton and skull base have normal appearance. SCALP AND SOFT TISSUES: Normal appearance of the soft tissues of the scalp and the visualized face OTHER: None MRI/Brain without Contrast IMPRESSION: 1. Stable exam. 2. Minimal involutional change and chronic microvascular deep white matter disease. 3. No mass, hemorrhage, or acute territorial infarct. 4. No radiographically significant sinus disease. Electronically Signed: Tim Ward MD at 2:17 EDT ,
--- NOTE | 2022-07-01 18:54 | HP.PCM_ITS ---
Documented by User: RAYMUNDO Randhawa 07/01/22 19:11 HPI - General General Date of Admission: 07/01/22 Date of Service: 07/01/22 Chief Complaint: Aphasia HPI Narrative DOMONIQUE BAKER, is a 66 F who presents following an episode of aphasia. Patient states that she is unsure when the symptoms started as she was home by her self today but around 1:30 PM patient's son called and noted that the patient sounded funny. Patient states that it sounded like her tongue was swollen and that her words were slurred. Patient denies having any problems with word finding. Patient reports a history of hypertension and hyperlipidemia. Patient also reports a history of breast cancer however she states that she has been in remission for 10 years and recently finished her Femarin. Patient currently has no symptoms and is speaking normally. Patient reports that she had her carotid arteries checked a couple years ago at the [facility] and she was told that they were fine at that time. [facility] Medical History Breast cancer Hyperlipidemia Hypertension Home Medications lisinopril 20 mg tablet 20 mg PO DAILY bp 07/01/22 [History Last Taken 07/01/22] rosuvastatin 5 mg tablet 5 mg PO DAILY cholesterol 07/01/22 [History Last Taken 07/01/22] zolpidem 10 mg tablet 10 mg PO QHS PRN Insomnia 07/01/22 [History Last Taken 06/30/22] Allergy/AdvReac Type Severity Reaction Status Date / Time No Known Allergies Allergy Verified 07/01/22 15:48 Family History (Updated 07/01/22 @ 18:58 by RAYMUNDO Randhawa) Sister Thyroid disorder Mother Thyroid disorder Surgical History (Updated 07/01/22 @ 18:59 by RAYMUNDO Randhawa) H/O tubal ligation Social History Smoking Status: Former smoker ROS Constitutional Constitutional: Denies anorexia, chills, fatigue, fever(s), malaise or weakness Cardiovascular Cardiovascular: Denies chest pain, edema or palpitations Respiratory/Chest Respiratory/Chest: Denies cough, shortness of breath at rest, shortness of breath with exertion or wheezing Gastrointestinal Gastrointestinal: Denies abdominal pain, constipation, diarrhea, nausea or vomiting Genitourinary Genitourinary: Denies dysuria Musculoskeletal Musculoskeletal: Denies back pain, extremity pain, joint pain or joint stiffness Integumentary Integumentary: Denies dry skin Neurologic Neurologic: Reports abnormal speech; Denies abnormal gait, confusion, dizziness or weakness Psychiatric Psychiatric: Denies anxiety or depression Endocrine Endocrinology: Denies change in body appearance Hematologic/Lymphatic Hematologic/Lymphatic: Denies anemia Vital Signs Vital Signs Vital Signs: 07/01/22 15:45 07/01/22 15:48 07/01/22 15:52 Temperature 96.9 F L 96.9 F L Temperature Source Temporal Temporal Pulse Rate 85 Respiratory Rate 18 Blood Pressure 139/90 H Blood Pressure Mean 106 Pulse Ox 96 Oxygen Delivery Method Room Air Room Air 07/01/22 15:48 07/01/22 18:13 Temperature 98.0 F Temperature Source Temporal Pulse Rate 77 70 Respiratory Rate 18 18 Blood Pressure 150/77 H 141/96 H Blood Pressure Mean 101 111 Pulse Ox 96 95 Oxygen Delivery Method Room Air Room Air Weight Weight: 71 lb 12.8 oz Body Mass Index (BMI) 14.0 Physical Exam Const alert, oriented x3 and no apparent distress General Appearance: cooperative HEENT normocephalic and head/scalp atraumatic Eyes conjunctivae normal and no scleral icterus Neck supple General: trachea midline Lymph Lymphatic: no lymphadenopathy noted Resp normal respiratory effort, normal air movement and clear to auscultation bilaterally Cardio regular rate, regular rhythm, S1 normal heart sound, S2 normal heart sound and peripheral pulses 2+ throughout GI normal to inspection, nondistended, normoactive bowel sounds, soft to palpation and non-tender Extremity normal capillary refill and no clubbing, cyanosis or edema Neuro oriented x3, no focal motor deficits and no sensory deficits noted Sensorium / Orientation: awake and alert Speech: speech normal Motor Exam: strength 5/5 throughout Psych thought process normal, cooperative and affect normal Results Lab / Micro Data Result Diagrams: 07/01/22 15:50 07/01/22 15:50 Labs: Laboratory Results - last 24 hr 07/01/22 15:50: WBC 8.1, RBC 4.41, Hgb 13.7, Hct 41.9, MCV 95.0, MCH 31.1, MCHC 32.7, RDW Std Deviation 45.6 H, RDW Coeff of Jasbir 13.0, Plt Count 293, MPV 9.2, Immature Gran % (Auto) 0.200, Neut % (Auto) 63.8, Lymph % (Auto) 26.6, [place] % (Auto) 8.3, Eos % (Auto) 0.9, Baso % (Auto) 0.2, Absolute Neuts (auto) 5.2, Absolute Lymphs (auto) 2.15, Nucleated RBC % 0 07/01/22 15:50: PT 12.4, INR 1.0, APTT 23.9 L 07/01/22 15:50: Sodium 143, Potassium 3.9, Chloride 112 H, Carbon Dioxide 27.0, Anion Gap 4 L, BUN 16, Creatinine 0.76, Estim Creat Clear Calc 27.68, Est GFR (MDRD) Af Amer 97, Est GFR (MDRD) Non-Af 80, BUN/Creatinine Ratio 21.0 H, Glucose 114 H, Calcium 8.8, Troponin I High Sens 6 Rhythm Strip Rhythm Strip: Sinus Rhythm Rate: 75 Ectopy: None Radiology Impression Brain CT 07/01/22 15:48 IMPRESSION: Normal unenhanced CT scan of the brain. Electronically Signed: Tim Narvaez MD at 16:04 EDT , ADDENDUM: 07/01/22 1613 IMPRESSION: Normal unenhanced CT scan of the brain. N.B. : The above Results were Read Back by Tim Narvaez MD to Dr. Polo MD, and understanding confirmed on 07/01/2022 16:06:57 (ET). Electronically Signed: Tim Narvaez MD at 16:04 EDT , Head/Neck CTA 07/01/22 15:49 IMPRESSION: Normal CTA Head and neck with contrast. Electronically Signed: Tim Narvaez MD at 16:24 EDT Reading Location ID and State: [id number] [employer] [place] Tel , Service support , ADDENDUM: 07/01/22 1643 IMPRESSION: Normal CTA Head and neck with contrast. N.B. : The above Results were Read Back by Tim Narvaez MD to Dr. Polo MD, and understanding confirmed on 07/01/2022 16:36:17 (ET). Electronically Signed: Tim Narvaez MD at 16:24 EDT Reading Location ID and State: [id number] [employer] [place] Tel , Service support , Chest X-Ray 07/01/22 16:20 IMPRESSION: No active disease. Electronically Signed: Tim Narvaez MD at 16:38 EDT Reading Location ID and State: [id number] [employer] [place] Tel , Service support , Assessment & Plan Assessment/Plan (1) Brain TIA: PLAN: Plan 1. Rule out TIA -Admit to PCU -NIH and vital sign monitoring per protocol -PT, OT, ST to eval and treat -MRI ordered -Echocardiogram ordered -CBC, CMP, magnesium, phosphorus, lipid panel, TSH ordered for a.m. -Hemoglobin A1c ordered -As needed labetalol and hydralazine ordered per protocol 2. Hypertension -Continue lisinopril -Vital signs per protocol, currently stable -Patient received 1 dose of labetalol IV in ER 3. Hyperlipidemia -Continue rosuvastatin DVT prophylaxis-SC lovenox and SCDs This patient was seen by SAURAV RandhawaC under the supervision of Dr. Balderas. 30 minutes spent in clinical coordination of patient's plan of care. Documented by User: Dr. Alondra Balderas DO 07/01/22 19:56 HPI - General General Date of Admission: 07/01/22 HPI Narrative DOMONIQUE BAKER, is a 66 F who presented to the emergency department at [facility] on 07/01/2022 with dysarthria. The patient reported that she went to nap around 1:00 and she woke up around 2:00. Shortly after waking she was talking on the phone to family members to reported her she was not making sense and that her speech was slurred, she described it as somewhat garbled. It does not sound as if she had any aphasia. The patient not noticed any concomitant focal deficit including upper or lower extremity weakness/numbness o r paresthesias and had no facial droop or any other cranial nerve symptoms. She reported that her symptoms lasted between 30 and 60 minutes and upon arrival to the emergency department her symptoms had resolved other than her feeling a little foggy. She had no visual deficits and was feeling well up until waking up from her nap. Vital sign on presentation showed a temperature of 96.9, heart rate of 85, blood pressure of 139/90, respiratory rate was 18 and oxygen saturations were 96 on room air. Her CBC was unremarkable. Coags were normal. Her BMP was unremarkable other than a fasting glucose of 114. Her high-sensitivity troponin was 6. EKG showed normal sinus rhythm without any interval abnormalities and no changes consistent with acute ischemia. CT of her brain showed a normal unenhanced CT. CTA showed no LVO and no other significant abnormalities. Chest x-ray showed no acute process. [facility] Medical History Breast cancer Hyperlipidemia Hypertension Home Medications lisinopril 20 mg tablet 20 mg PO DAILY bp 07/01/22 [History Last Taken 07/01/22] rosuvastatin 5 mg tablet 5 mg PO DAILY cholesterol 07/01/22 [History Last Taken 07/01/22] zolpidem 10 mg tablet 10 mg PO QHS PRN Insomnia 07/01/22 [History Last Taken 06/30/22] Allergy/AdvReac Type Severity Reaction Status Date / Time No Known Allergies Allergy Verified 07/01/22 15:48 Family History (Updated 07/01/22 @ 18:58 by Shani Knoble, [employer]) Sister Thyroid disorder Mother Thyroid disorder Surgical History (Updated 07/01/22 @ 18:59 by RAYMUNDO Randhawa) H/O tubal ligation Social History Smoking Status: Former smoker ROS Constitutional Constitutional: Denies anorexia, change in weight, chills, fatigue, fever(s), malaise, night sweats, weakness, weight gain or weight loss Eyes Eyes: Denies blurry vision, change in vision, discharge from eye(s), double vision, erythema, eye pain, irritation or itchy eyes ENT HEENT: Denies abnormal hearing, dysphagia, ear pain, epistaxis, headache(s), hearing loss, loss taste/smell, nasal congestion, nasal discharge, post nasal drip, sinus pain, sinus pressure, sore throat or throat swelling Cardiovascular Cardiovascular: Denies chest pain, claudication, edema, orthopnea, palpitations, paroxysmal nocturnal dyspnea or syncope Respiratory/Chest Respiratory/Chest: Denies cough, hemoptysis, shortness of breath at rest, shortness of breath with exertion or wheezing Gastrointestinal Gastrointestinal: Denies abdominal pain, constipation, diarrhea, dyspepsia, hematemesis, hematochezia, melena, nausea or vomiting Genitourinary Genitourinary: Denies dysuria, hematuria, nocturia, oliguria, polyuria, urinary frequency, urinary hesitancy, urinary incontinence or urinary urgency Musculoskeletal Musculoskeletal: Denies back pain, extremity pain, joint pain, joint stiffness, joint swelling, limited range of motion, muscle weakness, neck pain or stiffness Integumentary Integumentary: Denies dry skin, jaundice, lesions, pruritus, rash or wounds Neurologic Neurologic: Reports abnormal speech; Denies abnormal gait, confusion, dizziness, focal weakness, headache(s), lack of coordination, numbness, seizures, sensory deficit, tingling, tremor(s) or weakness Psychiatric Psychiatric: Denies anxiety, depression, homicidal ideation or suicidal ideation Endocrine Endocrinology: Denies change in body appearance, cold intolerance, heat intolerance, polydipsia or polyuria Hematologic/Lymphatic Hematologic/Lymphatic: Denies anemia, easy bleeding, easy bruising or lymphadenopathy Physical Exam Const alert, oriented x3, no apparent distress and well nourished Constitutional Narrative: Upper middle-aged white female sitting up in bed, appears comfortable nontoxic General Appearance: cooperative and well developed HEENT normocephalic, head/scalp atraumatic and moist oral mucous membranes HEENT Narrative: Mallampati 2, dentition is good, no thrush Eyes PERRL and EOMs intact bilaterally Eyes Narrative: Conjunctiva are normal, no scleral icterus Neck supple, thyroid normal and no carotid bruits Neck Narrative: Trachea midline, no thyroid enlargement Resp normal respiratory effort, normal air movement and clear to auscultation bilaterally Auscultation: Negative for rales, rhonchi, wheezes or diminished lung sounds Cardio regular rate, regular rhythm, S1 normal heart sound, S2 normal heart sound, no murmurs, no rub, no gallops and peripheral pulses 2+ throughout GI normal to inspection, nondistended, normoactive bowel sounds, soft to palpation, non-tender and non-distended Extremity no clubbing, cyanosis or edema Skin General Skin Exam: no breakdown Lesions: no lesions Rashes: no rashes Wound Narrative: Skin changes consistent with chronic sun exposure/actinic keratoses noted Neuro CN's II-XII intact bilaterally, no focal motor deficits and no sensory deficits noted Neuro Narrative: Alert and oriented x3 Speech: speech normal Motor Exam: strength 5/5 throughout Psych thought process normal, cooperative and affect normal Results Lab / Micro Data Attestation: I reviewed the patient's lab results. Result Diagrams: 07/01/22 15:50 07/01/22 15:50 Assessment & Plan Assessment/Plan (1) Brain TIA: PLAN: Plan Assessment: Dysarthria Hypertension Hyperlipidemia History of breast cancer Plan: Rule out TIA/stroke -Stroke protocol in place -Not a tPA candidate secondary to symptom resolution on presentation -Continue home medications including lisinopril and rosuvastatin -We will hold home Ambien to not confound NIH is -Check echocardiogram -Check MRI -Check lipids -Check hemoglobin A1c -As needed antihypertensives per protocol Charges/Coding Visit Charges Inpatient E&M: 03021 Init Hosp L2
--- NOTE | 2022-07-01 22:00 | CM.ED ---
Late Entry SW responded to stroke alert. Met with patient's daughter. 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 SW provided emotional support to patient. SW remains available if needs arise. Asuncion MCCOY
[2022-07-02 02:38] VITALS: BP 131/68; PULSE 75; RESP 18; TEMP 36.6; O2SAT 95
[2022-07-02 03:06] VITALS: BMI 29.0
[2022-07-02 03:33] VITALS: PULSE 73
[2022-07-02 05:40] LABS: Absolute Lymphocyte Count 2.41 X10^3/uL (0.83-4.51); Absolute Neutrophil Count 3.4 X10^3/uL (2.0-7.7); Basophil# 0.02 X10^3/uL; Basophil% 0.3 % (0-1); Eosinophil# 0.09 X10^3/uL; Eosinophils% 1.4 % (0-5); Hematocrit 40.2 % (37-47); Hemoglobin 12.8 g/dL (12.0-15.0); Lymphocyte # 2.41 X10^3/ul (0.83-4.51); Mean Corp Hgb Conc 31.8 g/dL (32-36); Mean Corpuscular Hgb 30.7 pg (27.0-32.0); Mean Corpuscular Volume 96.4 fL (81-99); Mean Platelet Vol. 9.3 fl (6.2-12.0); Monocyte# 0.58 X10^3/uL; Monocyte% 8.9 % (0-10); NRBC Flagged by Analyzer 0 % (0-5); Neutrophil # 3.39 X10^3/uL (2.7-7.7); Neutrophil % 52.1 % (47-70); Platelet Count 266 K/mm3 (150-450); RBC Distribution Width CV 13.1 % (11.6-14.6); RBC Distribution Width SD 46.6 fl (35.1-43.9); Red Blood Count 4.17 M/mm3 (4.2-5.4); White Blood Count 6.5 K/mm3 (4.4-11.0)
--- NOTE | 2022-07-02 05:55 | ECHOD_ITS ---
Reason For Study: TIA/CVA Procedure This was a 2D Doppler, Color Flow transthoracic echocardiogram. The exam was of adequate technical quality. Exam performed portable in patient room. Left Ventricle Normal LV size. Left ventricular systolic function is normal. The estimated ejection fraction is 65 %. No evidence for diastolic dysfunction. No regional wall motion abnormalities noted. Right Ventricle Normal RV size. Normal systolic function. Atria Normal left atrium. Normal right atrium. No doppler evidence for ASD. Bubble contrast study negative for right to left interatrial shunt. Mitral Valve There is no mitral annular calcification. Normal mitral valve. Mild (1+) eccentric mitral valve insufficiency. Tricuspid Valve Normal tricuspid valve. Mild to moderate (1-2+) tricuspid valve insufficiency. Right ventricular systolic pressure estimated to be 32 mmHg. Aortic Valve Trisinus/trileaflet aortic valve. Normal aortic valve. Pulmonic Valve The pulmonic valve is not well visualized. Great Vessels Normal sized aortic root. Pericardium/Pleural No pericardial effusion. Medication Performed a rapid injection of agitated mix of 9 cc saline and 1cc air to assess for atrial septal defect. MMode/2D Measurements & Calculations LVIDd: 4.5 cm IVSd: 1.2 cm Ao root diam: 3.1 cm LVIDs: 2.9 cm LVPWd: 0.97 cm LA dimension: 3.8 cm RVDd: 3.1 cm FS: 34.5 % LAV(MOD-bp): 29.7 ml LA A4 area: 13.5 cm2 RA A4 area: 11.0 cm2 LAV(MOD-bp) Indexed: 17.6 ml/m2 LAV(MOD-sp2): 30.3 ml LAV(MOD-sp4): 29.0 ml Time Measurements MV dec time: 0.22 sec Doppler Measurements & Calculations MV E max jessica: 71.4 cm/sec MV V2 max: 122.4 cm/sec MV P1/2t max jessica: 86.7 cm/sec MV A max jessica: 104.8 cm/sec MV max P.0 mmHg MV P1/2t: 79.6 msec MV E/A: 0.68 MV V2 mean: 66.3 cm/sec MV dec slope: 319.1 cm/sec2 MV mean P.0 mmHg MV V2 VTI: 28.3 cm MVA(P1/2t): 2.8 cm2 Ao V2 max: 122.8 cm/sec LV V1 max: 98.4 cm/sec PA V2 max: 91.9 cm/sec Ao max P.0 mmHg LV V1 max P.9 mmHg Ao V2 mean: 83.7 cm/sec LV V1 mean P.9 mmHg Ao mean P.1 mmHg LV V1 mean: 63.6 cm/sec Ao V2 VTI: 26.3 cm LV V1 VTI: 21.9 cm TR max jessica: 269.2 cm/sec TR max P.0 mmHg ECHO/Echo Complete Interpretation Summary Left ventricular systolic function is normal. The estimated ejection fraction is 65 %. Mild (1+) eccentric mitral valve insufficiency. Mild to moderate (1-2+) tricuspid valve insufficiency. Right ventricular systolic pressure estimated to be 32 mmHg. No evidence for diastolic dysfunction. Bubble contrast study negative for right to left interatrial shunt. Ordering Physician: Alondra Balderas Referring Physician: Tavares Moise Performed By: Jero Edwards RCS
[2022-07-02 06:34] LABS: ALB/GLOB Ratio 1.1 RATIO (0.9-2.4); AST(SGOT) 16 U/L (15-37); Alanine Aminotransfer ALT/SGPT 30 U/L (13-56); Alkaline Phosphatase 83 U/L (45-117); Anion Gap 5 (5-15); BUN 16 mg/dL (7-18); BUN/Creat Ratio 19.2 RATIO (10-20); Calcium,Total 8.5 mg/dL (8.5-10.1); Chloride 113 mmol/L (98-107); Cholesterol 130 mg/dL (200); Creatinine, Serum 0.83 mg/dL (0.55-1.02); EST Glomerular Filtration Rate 72 mL/min (>60); Est Glom Filt Rate - Afr Amer 87 mL/min (>60); Estimated Creatinine Clearance 48.95 ml/min; Globulin 2.7 g/dL (2.2-4.2); Glucose 104 mg/dL (74-106); High Density Lipoprotein 41 mg/dL; Magnesium 2.1 mg/dL (1.6-2.6); Phosphorus 4.6 mg/dL (2.5-4.9); Potassium 3.9 mmol/L (3.5-5.1); Protein, Total 5.7 g/dL (6.4-8.2); Sodium Level 144 mmol/L (136-145); Thyroid Stim Hormone (TSH) 2.83 uIU/mL (0.358-3.74); Triglycerides 116 mg/dL; Very Low Density Lipoprotein 23 mg/dL (5-40)
[2022-07-02 07:25] LABS: Bedside Glucose 117 mg/dL (74-106)
[2022-07-02 07:57] LABS: Hemoglobin A1c 6.2 % (3.8-5.6)
[2022-07-02 08:00] VITALS: BP 120/73; PULSE 76; RESP 18; TEMP 36.8; O2SAT 95
[2022-07-02] MEDS: Lisinopril 20 MG Tablet PO (10:04)
[2022-07-02] MEDS: Enoxaparin 30 MG/0.3 ML Syringe SC (10:04)
[2022-07-02] MEDS: 0.9% Saline Lock 10 ML Syringe IV (10:04)
[2022-07-02 10:20] VITALS: O2SAT 94
--- NOTE | 2022-07-02 14:42 | DCINST_ITS ---
Discharge Instructions Diet Discharge Diet: Low fat / Low cholesterol Activity Discharge Activity: Return to Normal Activity Dressing / Incision Call your doctor if you observe: Numbness or Tingling Follow Up Care Test Results: Test results from this visit will be discussed in further detail at your follow- up appointment, if applicable. Discharge Plan Admission Admit Date/Time: 07/01/22 18:20 Primary Reason for Your Visit: Aphasia Attending Provider: Penelope Hughes Primary Care Provider: Tavares Moise Consulting Providers: Alondra Balderas Discharge Orders/Prescriptions Prescriptions: Continued lisinopril 20 mg Tablet 20 mg PO DAILY zolpidem 10 mg Tablet 10 mg PO QHS PRN (Reason: Insomnia) rosuvastatin 5 mg Tablet 5 mg PO DAILY Referrals / Follow Up: Tavares Moise MD [Primary Care Provider] - Within 2 Weeks Disposition Disposition (needs filled in before D/C Order can be placed): Home, Self Care
--- NOTE | 2022-07-02 14:43 | DS.PCM_ITS ---
Documented by User: RAYMUNDO Randhawa 07/02/22 14:47 Providers Date of Admission: 07/01/22 Date of Discharge: 07/02/22 Primary Care Physician: Dr. Tavares Moise MD Reason For Visit: TIA Diagnosis Discharge Diagnosis (1) Brain TIA: Status: Acute Code(s): G45.9 - Transient cerebral ischemic attack, unspecified Plan 1. Rule out TIA -Admit to PCU -NIH and vital sign monitoring per protocol -PT, OT, ST to eval and treat -MRI ordered -Echocardiogram ordered -CBC, CMP, magnesium, phosphorus, lipid panel, TSH ordered for a.m. -Hemoglobin A1c ordered -As needed labetalol and hydralazine ordered per protocol 2. Hypertension -Continue lisinopril -Vital signs per protocol, currently stable -Patient received 1 dose of labetalol IV in ER 3. Hyperlipidemia -Continue rosuvastatin DVT prophylaxis-SC lovenox and SCDs This patient was seen by RAYMUNDO Randhawa under the supervision of Dr. Balderas. 30 minutes spent in clinical coordination of patient's plan of care. Medications at Discharge Home Medications lisinopril 20 mg tablet 20 mg PO DAILY bp 07/01/22 rosuvastatin 5 mg tablet 5 mg PO DAILY cholesterol 07/01/22 zolpidem 10 mg tablet 10 mg PO QHS PRN Insomnia 07/01/22 Hospital Course Operations None Procedures 2-D Echocardiogram Summary of Care Provided Minutes Spent on Discharge: 35 Hospital Course: Patient is a 66-year-old female who initially presented after a episode of aphasia. Patient states that she had not noticed any symptoms however when her son called her at approximately 130 on day of presentation she noticed that her speech sounded slurred and muffled. Patient underwent MRI which was negative for acute findings as well as a normal CT head and neck. Patient also had echocardiogram which demonstrates an EF of 65% with mild mitral valve insufficiency, mild to moderate tricuspid valve insufficiency. Bubble contrast study negative for [id number] intra-atrial shunt. Patient instructed to follow-up with her primary care physician in 1 to 2 weeks. Physical Exam Const alert, oriented x3, no apparent distress and well nourished General Appearance: cooperative and well developed HEENT normocephalic, head/scalp atraumatic and moist oral mucous membranes Eyes conjunctivae normal and no scleral icterus Neck supple and thyroid normal Neck Narrative: Trachea midline, no thyroid enlargement General: trachea midline Lymph Lymphatic: no lymphadenopathy noted Resp normal respiratory effort, normal air movement and clear to auscultation bilaterally Cardio regular rate, regular rhythm, S1 normal heart sound, S2 normal heart sound and peripheral pulses 2+ throughout GI normal to inspection, nondistended, normoactive bowel sounds, soft to palpation and non-tender Extremity normal capillary refill and no clubbing, cyanosis or edema Skin General Skin Exam: no breakdown Lesions: no lesions Rashes: no rashes Neuro oriented x3, CN's II-XII intact bilaterally, no focal motor deficits and no sens ory deficits noted Neuro Narrative: Alert and oriented x3 Sensorium / Orientation: awake and alert Speech: speech normal Motor Exam: strength 5/5 throughout Psych thought process normal, cooperative and affect normal Weight / BMI Weight Weight: 153 lb 10.595 oz Body Mass Index (BMI) 29.0 ABG / Lab / Microbiology Data Result Diagrams: 07/02/22 05:14 07/02/22 05:14 Laboratory: Laboratory Results - last 24 hr 07/01/22 15:45: POC Glucose 117 H 07/01/22 15:50: WBC 8.1, RBC 4.41, Hgb 13.7, Hct 41.9, MCV 95.0, MCH 31.1, MCHC 32.7, RDW Std Deviation 45.6 H, RDW Coeff of Jasbir 13.0, Plt Count 293, MPV 9.2, Immature Gran % (Auto) 0.200, Neut % (Auto) 63.8, Lymph % (Auto) 26.6, [place] % (Auto) 8.3, Eos % (Auto) 0.9, Baso % (Auto) 0.2, Absolute Neuts (auto) 5.2, Absolute Lymphs (auto) 2.15, Nucleated RBC % 0 07/01/22 15:50: PT 12.4, INR 1.0, APTT 23.9 L 07/01/22 15:50: Sodium 143, Potassium 3.9, Chloride 112 H, Carbon Dioxide 27.0, Anion Gap 4 L, BUN 16, Creatinine 0.76, Estim Creat Clear Calc 27.68, Est GFR (MDRD) Af Amer 97, Est GFR (MDRD) Non-Af 80, BUN/Creatinine Ratio 21.0 H, Glucose 114 H, Calcium 8.8, Troponin I High Sens 6 07/02/22 05:14: Hemoglobin A1c 6.2 H 07/02/22 05:14: WBC 6.5, RBC 4.17 L, Hgb 12.8, Hct 40.2, MCV 96.4, MCH 30.7, MCHC 31.8 L, RDW Std Deviation 46.6 H, RDW Coeff of Jasbir 13.1, Plt Count 266, MPV 9.3, Immature Gran % (Auto) 0.300, Neut % (Auto) 52.1, Lymph % (Auto) 37.0, [place] % (Auto) 8.9, Eos % (Auto) 1.4, Baso % (Auto) 0.3, Absolute Neuts (auto) 3.4, Absolute Lymphs (auto) 2.41, Nucleated RBC % 0 07/02/22 05:14: Sodium 144, Potassium 3.9, Chloride 113 H, Carbon Dioxide 26.0, Anion Gap 5, BUN 16, Creatinine 0.83, Estim Creat Clear Calc 48.95, Est GFR (MDRD) Af Amer 87, Est GFR (MDRD) Non-Af 72, BUN/Creatinine Ratio 19.2, Glucose 104, Calcium 8.5, Phosphorus 4.6, Magnesium 2.1, Total Bilirubin 0.20, AST 16, ALT 30, Alkaline Phosphatase 83, Total Protein 5.7 L, Albumin 3.0 L, Globulin 2.7, Albumin/Globulin Ratio 1.1, Triglycerides 116, Cholesterol 130, LDL Cholesterol 66, VLDL Cholesterol 23, HDL Cholesterol 41, TSH 2.83 Radiography Diagnostic Testing: Radiology Impression Brain CT 07/01/22 15:48 IMPRESSION: Normal unenhanced CT scan of the brain. Electronically Signed: Tim Narvaez MD at 16:04 EDT , ADDENDUM: 07/01/22 0846 IMPRESSION: Normal unenhanced CT scan of the brain. N.B. : The above Results were Read Back by Tim Narvaez MD to Dr. Polo MD, and understanding confirmed on 07/01/2022 16:06:57 (ET). Electronically Signed: Tim Narvaez MD at 16:04 EDT , Head/Neck CTA 07/01/22 15:49 IMPRESSION: Normal CTA Head and neck with contrast. Electronically Signed: Tim Narvaez MD at 16:24 EDT , ADDENDUM: 07/01/22 1643 IMPRESSION: Normal CTA Head and neck with contrast. N.B. : The above Results were Read Back by Tim Narvaez MD to Dr. Polo MD, and understanding confirmed on 07/01/2022 16:36:17 (ET). Electronically Signed: Tim Narvaez MD at 16:24 EDT , Chest X-Ray 07/01/22 16:20 IMPRESSION: No active disease. Electronically Signed: Tim Narvaez MD at 16:38 EDT , Brain MRI 07/01/22 18:24 IMPRESSION: 1. Stable exam. 2. Minimal involutional change and chronic microvascular deep white matter disease. 3. No mass, hemorrhage, or acute territorial infarct. 4. No radiographically significant sinus disease. Electronically Signed: Tim Ward MD at 2:17 EDT , Echocardiogram 07/02/22 05:55 Interpretation Summary Left ventricular systolic function is normal. The estimated ejection fraction is 65 %. Mild (1+) eccentric mitral valve insufficiency. Mild to moderate (1-2+) tricuspid valve insufficiency. Right ventricular systolic pressure estimated to be 32 mmHg. No evidence for diastolic dysfunction. Bubble contrast study negative for right to left interatrial shunt. Ordering Physician: Alondra Balderas Referring Physician: Tavares Moise Performed By: Jero Edwards RCS D/C Instructions Discharge Diet: Low fat / Low cholesterol Call your doctor if you observe: Numbness or Tingling Meaningful Use Info Meaningful Use Diagnoses (Choose all that apply): None applicable Discharge Plan Admission Admit Date/Time: 07/01/22 18:20 Primary Reason for Your Visit: Aphasia Attending Provider: Penelope Hughes Primary Care Provider: Tavares Moise Consulting Providers: Alondra Balderas Discharge Orders/Prescriptions Prescriptions: Continued lisinopril 20 mg Tablet 20 mg PO DAILY zolpidem 10 mg Tablet 10 mg PO QHS PRN (Reason: Insomnia) rosuvastatin 5 mg Tablet 5 mg PO DAILY Referrals / Follow Up: Tavares Moise MD [Primary Care Provider] - Within 2 Weeks Disposition Disposition (needs filled in before D/C Order can be placed): Home, Self Care Documented by User: Dr. Penelope Hughes MD 07/02/22 15:44 Providers Date of Admission: 07/01/22 Reason For Visit: TIA Diagnosis Discharge Diagnosis (1) Brain TIA: Status: Acute Code(s): G45.9 - Transient cerebral ischemic attack, unspecified Medications at Discharge Home Medications lisinopril 20 mg tablet 20 mg PO DAILY bp 07/01/22 rosuvastatin 5 mg tablet 5 mg PO DAILY cholesterol 07/01/22 zolpidem 10 mg tablet 10 mg PO QHS PRN Insomnia 07/01/22 ABG / Lab / Microbiology Data Result Diagrams: 07/02/22 05:14 07/02/22 05:14 Discharge Plan Admission Admit Date/Time: 07/01/22 18:20 Primary Reason for Your Visit: Aphasia Attending Provider: Penelope Hughes Primary Care Provider: Tavares Moise Consulting Providers: Alondra Balderas Discharge Orders/Prescriptions Prescriptions: Continued lisinopril 20 mg Tablet 20 mg PO DAILY zolpidem 10 mg Tablet 10 mg PO QHS PRN (Reason: Insomnia) rosuvastatin 5 mg Tablet 5 mg PO DAILY Referrals / Follow Up: Tavares Moise MD [Primary Care Provider] - Within 2 Weeks Disposition Disposition (needs filled in before D/C Order can be placed): Home, Self Care Charges/Coding Addendum Addendum: This patient was seen in conjunction with Elliot Denton NP. I have independently interviewed and examined the patient and reviewed pertinent historical, laboratory, and other data. I have reviewed her note and concur with her documentation 66-year-old female with past medical history of hypertension, hyperlipidemia who presented with dysarthria. Patient was reported as having slurred speech. There was no associated weakness or numbness or paresthesias of her extremities. Symptoms lasted less than 1 hour. Symptoms had resolved at time of admission. Her vitals in the ED were stable. CT of the brain was unremarkable. CTA of the head and neck did not show any large vessel occlusion. Patient was admitted to the progressive care unit and monitored overnight. MRI of the brain was unremarkable. 2D echo showed EF of 65%, no evidence of diastolic dysfunction. Patient will follow-up with your primary care doctor within 1 to 2 weeks. Day of discharge, patient was seen examined. Denied any new complaints. Her granddaughter was at the bedside. She asked questions about sleep apnea. Patient admits to snoring. They have not noticed if patient stops breathing while sleeping. Discussed with patient about seeing her primary care doctor about referral for sleep study. Physical Exam: Gen: Comfortable, not pale, not jaundiced CVS:HS I +II, regular, no murmurs RESP: Diminished at lung bases GI: BS present and normal, soft, nontender, no palpable organs EXT:No edema Visit Charges OBSV E&M: [id number] Observation care discharge
[2022-07-02 15:00] VITALS: BP 144/70; PULSE 72; RESP 18; TEMP 36.7; O2SAT 98
--- NOTE | 2022-07-02 15:28 | PHA.DC.MR ---
Pharmacy Service has performed discharge medication reconciliation for this patient. The patient's discharge medication list was reviewed for discrepancies and discrepancies were resolved. Home Medications lisinopril 20 mg tablet 20 mg PO DAILY bp 07/01/22 rosuvastatin 5 mg tablet 5 mg PO DAILY cholesterol 07/01/22 zolpidem 10 mg tablet 10 mg PO QHS PRN Insomnia 07/01/22
--- NOTE | 2022-07-02 15:29 | CASEMGMT ---
Social Work SW in to conduct PHQ9 Depression Assessment with pt as she presented to the hospital with a TIA. Pt willing to answer questions and scored a 1 out of 20. Pt reported some slurred speech yesterday but denied all other questions. SW offered patient counseling resources and discussed mood changes with pt after health conditions and hospital stays. Pt declined the resources and stated she does not need them. SW encouraged pt to reach out for assistance if she changes her mind. OTILIO Pineda
[2022-07-02 16:27] VITALS: BMI 29.0
== END 2022-07-02 16:29 | disposition home or self-care (01) ==
LOC: ED 17:30 → PCU 18:31
PROVIDERS: Admitting Provider Internal Medicine; Emergency Provider Emergency Medicine; PCP Family Medicine; Visit Provider Internal Medicine
DX: G45.9 Transient cerebral ischemic attack, unspecified (principal); R47.01 Aphasia; Z87.891 Personal history of nicotine dependence; R47.81 Slurred speech; I10 Essential (primary) hypertension; I08.1 Rheumatic disorders of both mitral and tricuspid valves; R47.1 Dysarthria and anarthria; E78.5 Hyperlipidemia, unspecified; Z79.899 Other long term (current) drug therapy
CPT/HCPCS: 36415; 70450; 70496; 70498; 70551; 71045; 80048; 80053; 80061; 82962; 83036; 83735; 84100; 84443; 84484; 85025; 85610; 85730; 92610; 93005; 93306; 96372; 99218; 99285; Q9967; A4216; G0378

== ENCOUNTER → 2023-01-31 | Outpatient (CLI) | payer OTHER, SELFPAY ==
[2023-01-31 10:33] LABS: ALB/GLOB Ratio 1.4 RATIO (0.9-2.4); AST(SGOT) 19 U/L (15-37); Alanine Aminotransfer ALT/SGPT 25 U/L (13-56); Albumin, Serum 3.6 g/dL (3.2-5.0); Alkaline Phosphatase 92 U/L (45-117); Anion Gap 5 (5-15); BUN 20 mg/dL (7-18); Calcium,Total 9.2 mg/dL (8.5-10.1); Chloride 110 mmol/L (98-107); Cholesterol 146 mg/dL (200); EST Glomerular Filtration Rate 58 mL/min (>60); Est Glom Filt Rate - Afr Amer 71 mL/min (>60); Globulin 2.6 g/dL (2.2-4.2); Glucose 118 mg/dL (74-106); High Density Lipoprotein 51 mg/dL; Potassium 4.8 mmol/L (3.5-5.1); Protein, Total 6.2 g/dL (6.4-8.2); Sodium Level 143 mmol/L (136-145); Triglycerides 103 mg/dL; Very Low Density Lipoprotein 21 mg/dL (5-40)
== END | disposition home or self-care (01) ==
LOC: MFPLAB 08:48
PROVIDERS: PCP Family Medicine; Referring Provider Family Medicine; Visit Provider Family Medicine
DX: E78.5 Hyperlipidemia, unspecified (principal)
CPT/HCPCS: 36415; 80053; 80061

== ENCOUNTER → 2023-08-08 | Outpatient (CLI) | payer MEDICARE, OTHER, SELFPAY ==
[2023-08-08 10:41] LABS: Anion Gap 3 (5-15); BUN 15 mg/dL (7-18); BUN/Creat Ratio 15.4 RATIO (10-20); Calcium,Total 8.9 mg/dL (8.5-10.1); Chloride 112 mmol/L (98-107); Cholesterol 140 mg/dL (200); Creatinine, Serum 0.97 mg/dL (0.55-1.02); EST Glomerular Filtration Rate 60 mL/min (>60); Est Glom Filt Rate - Afr Amer 73 mL/min (>60); Glucose 127 mg/dL (74-106); High Density Lipoprotein 44 mg/dL; Potassium 4.1 mmol/L (3.5-5.1); Sodium Level 143 mmol/L (136-145); Triglycerides 90 mg/dL; Very Low Density Lipoprotein 18 mg/dL (5-40)
== END | disposition home or self-care (01) ==
LOC: MFPLAB 08:15
PROVIDERS: PCP Family Medicine; Visit Provider Family Medicine
DX: I10 Essential (primary) hypertension (principal)
CPT/HCPCS: 36415; 80048; 80061

== ENCOUNTER → 2024-08-02 | Outpatient (CLI) | payer MEDICARE, OTHER, SELFPAY ==
[2024-08-02 13:50] LABS: ALB/GLOB Ratio 1.2 RATIO (0.9-2.4); AST(SGOT) 11 U/L (15-37); Alanine Aminotransfer ALT/SGPT 20 U/L (13-56); Albumin, Serum 3.5 g/dL (3.2-5.0); Alkaline Phosphatase 83 U/L (45-117); Anion Gap 6 (5-15); BUN 18 mg/dL (7-18); BUN/Creat Ratio 18.2 RATIO (10-20); Calcium,Total 9.6 mg/dL (8.5-10.1); Chloride 113 mmol/L (98-107); Cholesterol 143 mg/dL (200); Creatinine, Serum 0.99 mg/dL (0.55-1.02); EST Glomerular Filtration Rate 59 mL/min (>60); Est Glom Filt Rate - Afr Amer 71 mL/min (>60); Globulin 2.8 g/dL (2.2-4.2); Glucose 132 mg/dL (74-106); High Density Lipoprotein 53 mg/dL; Potassium 4.5 mmol/L (3.5-5.1); Protein, Total 6.3 g/dL (6.4-8.2); Sodium Level 143 mmol/L (136-145); Triglycerides 81 mg/dL; Very Low Density Lipoprotein 16 mg/dL (5-40)
== END | disposition home or self-care (01) ==
LOC: MFPLAB 10:14
PROVIDERS: PCP Family Medicine; Visit Provider Family Medicine
DX: I10 Essential (primary) hypertension (principal)
CPT/HCPCS: 36415; 80053; 80061

== ENCOUNTER → 2024-09-09 | Outpatient (CLI) | payer MEDICARE, OTHER, SELFPAY ==
--- NOTE | 2024-09-09 13:35 | CT_ITS ---
STUDY: LOW DOSE CT LUNG CANCER SCREENING REASON FOR EXAM: Female, 69 years old. NICOTINE DEPENDENCE patient swallowed half a pack of cigarettes per day for 45 years. Patient quit smoking 5 years ago. Patient has a history of a prior right breast cancer and lumpectomy. RADIATION DOSAGE (If Supplied By Facility): CTDIvol = ( 2.39 ) mGy, DLP = ( 82.5 ) mGycm TECHNIQUE: No contrast was administered. Low dose technique was utilized (average mAS-38 and kVp 120). 1.25 mm axial source images with a slice interval of 1.25-mm were reconstructed in lung windows. 2.5 mm axial source images with a slice interval of 2.5-mm were reconstructed in lung windows. 5.0 mm axial source images with a slice interval of 5.0-mm were reconstructed in soft tissue windows. COMPARISON: None. NODULES: There is a 2 cm x 1.3 cm x 1.3 cm irregular nodular density in the posterolateral aspect of the lingular segment of the left upper lobe. This most likely represents scarring although a neoplastic process cannot be excluded. Emphysema: Hyperinflation. Mild degree of emphysematous changes in both lungs. Endobronchial lesion: None Aorta: Mild degree of atherosclerotic plaque formation. CORONARY ARTERIES: Coronary artery calcification is seen. Heart: Unremarkable Pulmonary artery: Unremarkable Mediastinal nodes: Unremarkable Other chest and abdominal findings: CT/Low Dose CT Lung Screening IMPRESSION: Lung-RADS category 4B - Chest CT with or without contrast, PET/CT and/or tissue sampling can be obtained depending on the probability of malignancy and comorbidities. IMPORTANT NOTES FOR USE: ACR Lung-RADS Version 1.1 Assessment Categories Release Date: 2018 Category: Coded 0-4 bases on nodule(s) with highest degree of suspicion. Negative screen is defined as categories 1 and 2; a positive screen is defined as categories 3 and 4. Category 3 and 4A nodules that are unchanged on interval CT should be coded as category 2, and individuals returned to screening in 12 months. Category 4X: Category 3 or 4 nodules with additional imaging findings that increase the suspicion of lung cancer, such as spiculation, GGN that doubles in size in 1 year, enlarged lymph notes, etc. Category Modifiers: S (significant finding unrelated to lung cancer) Electronically Signed: Jimbo Olivo MD at 8:27 EDT ,
--- NOTE | 2024-09-09 13:37 | BI_ITS ---
MAMMOGRAPHY - BILATERAL SCREENING REASON FOR EXAM: Female, 69 years old. Routine annual screening examination. PERTINENT HISTORY: Mother with breast cancer. Right excisional breast biopsy. TECHNIQUE: Digital bilateral breast [place] (3D mammographic acquisition) in the CC and MLO projections. 2-D mediolateral oblique (MLO) and craniocaudad (CC) views of both breasts were obtained. CAD: Full Field Digital Mammography with Computer Added Detection was performed. COMPARISON: Comparison is made with prior outside examination dated July 01, 2022. FINDINGS: Breast Composition: The breasts are almost entirely fatty. There are no dominant masses or suspicious calcifications. Surgical clips are seen in the right axilla. There is evidence of a retraction of the periareolar nipple complex most likely secondary to prior excisional breast biopsy. No other significant abnormalities are identified. There has been no significant change since the prior study. BI/SCRN MAMM (CAD)W/SALINAS BILAT IMPRESSION: Stable bilateral screening mammogram. Yearly follow-up mammogram recommended. (A) ASSESSMENT CATEGORY: BIRADS Category 2: Benign. A letter regarding these results will be sent to the patient by the facility within 30 days. Approximately 10% of breast cancers are not detected by mammography. A normal mammogram should not delay biopsy of a clinically suspicious abnormality. [id number] Electronically Signed: Jimbo Olivo MD at 8:41 EST ,
--- NOTE | 2024-09-09 14:35 | BD_ITS ---
STUDY: DUAL ENERGY X-RAY ABSORPTIOMETRY / DXA REASON FOR EXAM: Female, 69 years old. N95.9 TECHNIQUE: Bone Mineral Density (BMD) measurements of lumbar spine and bilateral hips were obtained. COMPARISON: Comparison is made with prior study dated July 25, 2021. FINDINGS: Lumbar Spine (L1-L4): g/cm2 (0.826) / T-score (-2.1) / Z-score (0.1) Findings are suggestive of osteopenia with a high fracture risk. Left Femur Total: g/cm2 (0.730) / T-score (-1.7) / Z-score (-0.2) Left Femoral Neck: g/cm2 (0.593) / T-score (-2.3) / Z-score (-0.4) Right Femur Total: g/cm2 (0.752) / T-score (-1.6) / Z-score (0.0) Right Femoral Neck: g/cm2 (0.599) / T-score (-2.3) / Z-score (-0.4) The T-Scores on the most recent prior examination were: Lumbar Spine (L1-L4): There has been improvement of bone density since the previous examination. Left Femur Total: which represents a worsening of 1.5%. Right Femur Total: which represents a worsening of 0.3%. BD/Dexa Bone Density Study IMPRESSION: The patient is considered osteopenic as outlined below according to World Manuel Organization (WHO) criteria with a high fracture risk. There has been worsening of bone density since the previous examination. Reference Information: The T-score is the number of standard deviations above or below the standard which is normal for young adults at their peak bone mineral density. The World Health Organization (WHO) interprets the T-scores as follows: Above -1 Normal bone density Between -1 and -2.5 Osteopenia Equal to / or below -2.5 Osteoporosis As a practical clinical guideline, osteopenia may be graded as follows: Mild -1 through -1.5 Moderate -1.6 through -2.0 Severe -2.1 through -2.4 The Z-score is the number of standard deviations above or below age-matched controls. A Z-score of less than -1.5 would be considered abnormal. References: 1. NIH Osteoporosis and Related Bone Diseases www osteo.org 2. International Society for Clinical Densitometry www iscd.org 3. National Osteoporosis Foundation www nof.org Electronically Signed: Jimbo Olivo MD at 15:29 EDT ,
--- OUTSIDE RECORDS SUMMARY | 2024-09-09 15:44 | XMS RPT_ITS | CCD ---
Author Organization [facility] Care Team Providers Care Chinchilla Machine Operator Name Role Phone JESÚS HAYS Unavailable Unavailable Jose Maria ARIZA, Tavares Castanon Primary Care Provider [phone]( [phone] Tavares Moise MD Primary Care Provider Tavares Moise MD Primary Care Provider [phone] Medications Current Medications Medication Drug Class(es) Dates Sig (Normalized) Sig (Original) Calcium Carbonate (7 sources) take 1 capsule by mo uth once daily CALCIUM CARBONATE (CALCIUM 600 ORAL) Take 1 capsule by mouth once daily. Active take 1 capsule by mouth once emi ly CALCIUM CARBONATE (CALCIUM 600 ORAL) Take 1 capsule by mouth once daily. 0 Active Comment on above: Take 1 capsule by mo uth once daily. cholecalciferol 0.05 mg oral tablet (7 sources) Vitamin D Start: 015 take 1 tablet by mouth once daily cholecalciferol (VITAMIN D3) 2,000 unit tablet Take 1 tablet by mouth once daily. 0 06/28/2015 Active Comment on above: [facility] lisinopril 10 mg oral tablet (7 sources) Angiotensin Converting Enzyme Inhibitor Start: 021 take 2 tablets by mouth once daily lisinopril (ZESTRIL, PRINIVIL) 10 mg tablet Take 20 mg by mouth once daily. 12/27/2020 Active Comment on above: Take 20 mg by mouth once daily. Multivitamin capsule (7 sources) take 1 capsule by mouth once daily Multivitamin capsule Indications: Personal history of malignant neoplasm of breast , Vitamin D deficiency Take 1 capsule by mouth once daily. Active take 1 capsule by mouth once emi ly Multivitamin capsule Indications: Personal history of malignant neoplasm of breast , Vitamin D deficiency Take 1 capsule by mouth once daily. 0 Active Comment on above: Take 1 capsule by mo uth once daily. zolpidem tartrate 10 mg oral tablet (7 sources) gamma-Aminobutyric Acid-ergic Agonist Start: 06-28-2015 take 1 tablet by mouth at bedtime as needed zolpidem (AMBIEN) 10 mg tab Indications: Situational insomnia Take 1 tablet by mouth at bedtime as needed (insomnia). 30 tablet 0 06/28/2015 Active Comment on above: Take 1 tablet by bill th at bedtime as needed (insomnia). Completed/Discontinued Medications Medication Drug Class(es) Dates Sig (Normalized) Sig (Original) letrozole 2.5 mg oral tablet (6 sources) Aromatase Inhibitor Start: 07-05-2021 End: 07-04-2022 take 1 tablet by mouth once daily letrozole (FEMARA) 2.5 mg tablet Take 1 tablet by mouth once daily. 90 tablet 0 03/06/2022 07/04/2022 Discontinued Start: 06-23-2020 End: 06-18-2021 take 1 tablet by mouth once daily letrozole (FEMARA) 2.5 mg tablet Take 1 tablet by mouth once daily. 90 tablet 3 06/23/2020 06/18/2021 Discontinued Comment on above: Take 1 tablet by bill th once daily. Problems Active Problems Problem Classification Problem Date Documented Da te Episodic/Chronic Other connective tissue disease (1 source) Pain in right foot; Translations: [Pain in right foot] 02-21-2021 Episodic Other non-traumatic joint disorders (1 source) Acute ankle pain; Translations: [Pain in right ankle and joints of right foot] 02-21-2021 Episodic Other screening for suspected conditions (not mental disorders or infectious disease) (3 sources) Encounter for screening for malignant neoplasm of colon; Translations: [Patient encounter status] Onset: 10-02-2018 Episodic Past or Other Problems Problem Classification Problem Date Documented Da te Episodic/Chronic Cancer of breast (9 sources) History of malignant neoplasm of breast; Translations: [Personal history of malignant neoplasm of breast] Onset: 05-26-2014 12-10-2016 Episodic Results Test Name Value Interpretation Reference Range Facility [facility] 08-10-2024 [facility] Telephone (ARTURO) SAMUELBRITNEY Rodríguez ([id number]) 1955 F Date Time Provider Department 08/10/24 PETAR ALEXANDER During your visit today, we recorded the following information about you: Shalini Kemp 08/10/2024 2:02 PM Signed Patient called to confirm that she no longer needs to have mammogram. She believes this was discussed last office visit with Petar. Please advise. Tammi Blackburn RN 08/10/2024 2:10 PM Signed Patients last OV was 06/2022. Reviewed OV notes with patient: - Mammogram due June 2023. - Follow up as needed. Pt. will follow up with PCP for yearly mammogram/CBE. Patient stated understanding and stated she will contact her PCP. Tammi Blackburn RN Allergies As of Date: 08/10/2024 (No Known Allergies) Date Reviewed: 07/04/2022 Reviewed by: Petar Alexander APRN.STUDENT SERVICES COUNSELOR - Fully Assessed Reason for Visit: Patient Question [4187] Prescriptions as of 08/10/2024 - lisinopril (ZESTRIL, PRINIVIL) 10 mg tablet Take 20 mg by mouth once daily. - CALCIUM CARBONATE (CALCIUM 600 ORAL) Take 1 capsule by mouth once daily. - zolpidem (AMBIEN) 10 mg tab Take 1 tablet by mouth at bedtime as needed (insomnia). - cholecalciferol (VITAMIN D3) 2,000 unit tablet Take 1 tablet by mouth once daily. - Multivitamin capsule Take 1 capsule by mouth once daily. Problem List As Of Date 08/10/2024 Noted Resolved Personal history of malignant neoplasm of breas*05/26/2014 Encounter Status:Closed by TAMMI BLACKBURN on 08/10/24 Normal [facility] YARIEL SCREENING W TOMAria 07-01 [facility] No Panel Informationon 02-21 IMPRESSION: No radiographic evidence of acute osseous injury. Hall Cleaner: REX Transcribe Date/Time: Feb 21 2021 2:17P Dictated by : ANITA SCHULTZ MD This examination was interpreted and the report reviewed and electronically signed by: ANITA SCHULTZ MD on Feb 21 2021 2:28PM [facility] DIVISION OF RADIOLOGY Radiology Study observation (narrative) [facility] No Panel InformationOrdered By: [facility] Provider on 02-21-2021 [facility] XR Ankle - right AP and Late ral and obliqueon 02-21-2021 * * *Final Report* * * DATE OF EXAM: Feb 21 2021 2:16PM [id number] - XR ANKLE 3V AP/LAT/OBL RT / PROCEDURE REASON: Acute right ankle pain * * * * Physician Interpretation * * * * CLINICAL INDICATION: Pain and swelling laterally after fall approximately one week ago TECHNIQUE: 3 view radiographic study of the right foot and 3 view radiographic study of the right ankle with inclusion of comparison frontal views of the left foot and ankle. COMPARISON: None FINDINGS: Minimal right hallux valgus deformity with mild first metatarsal phalangeal joint degenerative changes. Plantar calcaneal enthesophyte. Mild degenerative changes of the fifth proximal interphalangeal joint with hypertrophic change. No acute fracture or dislocation identified. Comparison view of the left side demonstrates a moderate hallux valgus deformity with moderate first metatarsal phalangeal joint degenerative changes. DIVISION OF RADIOLOGY Provider, [facility] - 02/21/2021 * * *Final Report* * * DATE OF EXAM: Feb 21 2021 2:16PM WOX [id number] - XR ANKLE 3V AP/LAT/OBL RT / PROCEDURE REASON: Acute right ankle pain * * * * Physician Interpretation * * * * CLINICAL INDICATION: Pain and swelling laterally after fall approximately one week ago TECHNIQUE: 3 view radiographic study of the right foot and 3 view radiographic study of the right ankle with inclusion of comparison frontal views of the left foot and ankle. COMPARISON: None FINDINGS: Minimal right hallux valgus deformity with mild first metatarsal phalangeal joint degenerative changes. Plantar calcaneal enthesophyte. Mild degenerative changes of the fifth proximal interphalangeal joint with hypertrophic change. No acute fracture or dislocation identified. Comparison view of the left side demonstrates a moderate hallux valgus deformity with moderate first metatarsal phalangeal joint degenerative changes. IMPRESSION IMPRESSION: No radiographic evidence of acute osseous injury. Hall Cleaner: REX Transcribe Date/Time: Feb 21 2021 2:17P Dictated by : ANITA SCHULTZ MD This examination was interpreted and the report reviewed and electronically signed by: ANITA SCHULTZ MD on Feb 21 2021 2:28PM EST [facility] XR Foot - right AP and Later al and obliqueon 02-21-2021 * * *Final Report* * * DATE OF EXAM: Feb 21 2021 2:16PM WOX [id number] - XR FOOT 3V AP/LAT/OBL RT / PROCEDURE REASON: Foot pain, right * * * * Physician Interpretation * * * * CLINICAL INDICATION: Pain and swelling laterally after fall approximately one week ago TECHNIQUE: 3 view radiographic study of the right foot and 3 view radiographic study of the right ankle with inclusion of comparison frontal views of the left foot and ankle. COMPARISON: None FINDINGS: Minimal right hallux valgus deformity with mild first metatarsal phalangeal joint degenerative changes. Plantar calcaneal enthesophyte. Mild degenerative changes of the fifth proximal interphalangeal joint with hypertrophic change. No acute fracture or dislocation identified. Comparison view of the left side demonstrates a moderate hallux valgus deformity with moderate first metatarsal phalangeal joint degenerative changes. DIVISION OF RADIOLOGY Provider, [facility] - 02/21/2021 * * *Final Report* * * DATE OF EXAM: Feb 21 2021 2:16PM WOX [id number] - XR FOOT 3V AP/LAT/OBL RT / PROCEDURE REASON: Foot pain, right * * * * Physician Interpretation * * * * CLINICAL INDICATION: Pain and swelling laterally after fall approximately one week ago TECHNIQUE: 3 view radiographic study of the right foot and 3 view radiographic study of the right ankle with inclusion of comparison frontal views of the left foot and ankle. COMPARISON: None FINDINGS: Minimal right hallux valgus deformity with mild first metatarsal phalangeal joint degenerative changes. Plantar calcaneal enthesophyte. Mild degenerative changes of the fifth proximal interphalangeal joint with hypertrophic change. No acute fracture or dislocation identified. Comparison view of the left side demonstrates a moderate hallux valgus deformity with moderate first metatarsal phalangeal joint degenerative changes. IMPRESSION IMPRESSION: No radiographic evidence of acute osseous injury. Hall Cleaner: REX Transcribe Date/Time: Apr 7 2021 2:17P Dictated by : ANITA SCHULTZ MD This examination was interpreted and the report reviewed and electronically signed by: ANITA SCHULTZ MD on Feb 21 2021 2:28PM EST [facility] Final Surgical Pathology Rep frank 10-06-2018 Final Surgical Pathology Report . Pathology ReportsAccession: Collected Date/Time: Received Date/Time: Pathologist:[id number] 10/02/2018 14:15 EST 10/05/2018 14:15 EST , DO CYNTHIA Lama Final Surgical Pathology ReportDIAGNOSIS:SERRAT ED POLYP, TRANSVERSE COLON.CLINICAL INFORMATION:SCREENINGS PECIMEN:A TRANSVERSE COLON POLYPGROSS DESCRIPTION:Received in formalin labeled transverse colon polyp is a 0.6 cm pale villatoro soft tissue fragment and a moderate amount of debris. TS -1Dictated by Anitra BARCENAS ([facility])MICROSCOPIC DESCRIPTION:Slides reviewed.Electronicall y Signed byPathology Report verified by [facility] HospitalElectronically signed by CYNTHIA CARTER DOSign out Date: 10/06/2018 13:57Performing Lab: [facility], [address] [place] [address] ([place]) Comment on above: Performed By: #### S PFR ####[place] [address] Vital Signs Date Time Vital Sign Value Performing Clinician Bonnie salguero 07-04-2022 10:02-0400 Body height 153.3 cm Petar Alexander APRN.STUDENT SERVICES COUNSELOR Work Phone: [facility] 07-04-2022 10:02-0400 Body temperature 98.71 [degF] Petar Alexander MICROFILM DUPLICATING UNIT SUPERVISOR.STUDENT SERVICES COUNSELOR Work Phone: [facility] 07-04-2022 10:02-0400 Body weight 70.31 kg Petar Alexander MICROFILM DUPLICATING UNIT SUPERVISORRaoulSTUDENT SERVICES COUNSELOR Work Phone: [facility] 07-04-2022 10:02-0400 Diastolic blood pressure 93 mm[Hg] Petar Alexander MICROFILM DUPLICATING UNIT SUPERVISORRaoulSTUDENT SERVICES COUNSELOR Work Phone: [facility] 07-04-2022 10:02-0400 Heart rate 80 /min Petar Alexander MICROFILM DUPLICATING UNIT SUPERVISORRaoulSTUDENT SERVICES COUNSELOR Work Phone: [facility] 07-04-2022 10:02-0400 SaO2% (BldA) [Mass fraction] 96 % Petar Alexander APRN.STUDENT SERVICES COUNSELOR Work Phone: [facility] 07-04-2022 10:02-0400 Systolic blood pressure 139 mm[Hg] Petar Alexander APRN.STUDENT SERVICES COUNSELOR Work Phone: [facility] Encounters Encounter Date Encounter Type Care Provider Facility Start: 08-27-2024 End: 08-27-2024 Chart abstracting Tavares Dupree DO Work Phone: Hematology/Oncology Start: 08-10-2024 End: 08-10-2024 Telephone encounter Petar Alexander APRN.STUDENT SERVICES COUNSELOR Work Phone: Hematology/Oncology Comment on above: Patient Question Start: 07-04-2022 End: 07-04-2022 ambulatory Petar Alexander APRN.STUDENT SERVICES COUNSELOR Work Phone: Hematology/Oncology Comment on above: Personal history of malignant neoplasm of breast (Primary Dx) Start: 07-04-2022 End: 07-04-2022 Patient encounter procedure Petar Alexander APRN.STUDENT SERVICES COUNSELOR Work Phone: [facility] Start: 07-01-2022 End: 07-01-2022 Subsequent hospital visit by physician Screen Mammo [facility] Wstr Mammogram Comment on above: Personal history of malignant neoplasm of breast [Z85.3] Start: 05-12-2022 Refill Petar Stubbsente r MICROFILM DUPLICATING UNIT SUPERVISOR.STUDENT SERVICES COUNSELOR Work Phone: Hematology/Oncology Comment on above: Refill Request Start: 03-05-2022 Refill [place] Carpente r MICROFILM DUPLICATING UNIT SUPERVISOR.STUDENT SERVICES COUNSELOR Work Phone: Hematology/Oncology Comment on above: Refill Request; Refi ll Request Start: 02-21-2021 End: 02-21-2021 Subsequent hospital visit by physician Xr [facility] Donna Work Phone: Radiology Comment on above: Acute right ankle pa in [M25.571] Start: 10-02-2018 End: 10-07-2018 Patient encounter procedure JESÚS HAYS Facility:A Procedures Date Procedure Procedure Detail Performing Clinician Start: 07-01-2022 YARIEL SCREENING W SALINAS Da brina Benjamin MICROFILM DUPLICATING UNIT SUPERVISOR.STUDENT SERVICES COUNSELOR Work Phone: Start: 07-01-2022 Mammography Screen Wst r Start: 06-29-2021 Mammography Petar michael MICROFILM DUPLICATING UNIT SUPERVISOR.STUDENT SERVICES COUNSELOR Work Phone: Start: 02-21-2021 Radex ankle complete minimum 3 views Cecil Chatal MICROFILM DUPLICATING UNIT SUPERVISOR.STUDENT SERVICES COUNSELOR Work Phone: Start: 06-18-2019 Adult depression scr eening assessment Petar Alexander MICROFILM DUPLICATING UNIT SUPERVISOR.STUDENT SERVICES COUNSELOR Work Phone: Start: 06-25-2014 Lipid 1996 panel - S derrick or Plasma Petar Alexander MICROFILM DUPLICATING UNIT SUPERVISOR.STUDENT SERVICES COUNSELOR Work Phone: Start: 11-17-2012 Colonoscopy Petar michael MICROFILM DUPLICATING UNIT SUPERVISOR.STUDENT SERVICES COUNSELOR Work Phone: Plan of Treatment Date Care Activity Detail Author Start: 2028 RSV Vaccine (1 - 1-d ose 75+ series) RSV Vaccine (1 - 1-dose 75+ series) [facility] Start: 07-18-2024 Covid-19 Vaccine ( season) Covid-19 Vaccine ( season) [facility] Start: 07-18-2024 Influenza vaccination Influenza Vacc ine (#1) [facility] Start: 11-17-2023 Advance Directive Discussion Advance Directive Discussion [facility] Start: 09-11-2023 Pneumococcal Vaccine : 65+ (3 of 3 - PPSV23 or PCV20) Pneumococcal Vaccine: 65+ (3 of 3 - PPSV23 or PCV20) [facility] Start: 07-01-2023 Mammography MAMMOGRAM [facility] Start: 07-01-2023 Screening for malign ant neoplasm of breast Mammogram Screening [facility] Start: 07-18-2022 Influenza vaccination [facility] Start: 06-29-2022 Mammography MAMMOGRAM [facility] Start: 02-20-2022 COVID-19 VACCINE (4 - Booster for Moderna series) COVID-19 VACCINE (4 - Booster for Moderna series) [facility] Start: 01-14-2022 COVID-19 VACCINE (4 - Booster for Moderna series) COVID-19 VACCINE (4 - Booster for Moderna series) [facility] Start: 11-17-2021 ADVANCE DIRECTIVE DISCUSSION ADVANCE DIRECTIVE DISCUSSION [facility] Start: 11-01-2021 PNEUMOVAX AGE 65 AND OVER WITH 5YR LOOKBACK (#1) PNEUMOVAX AGE 65 AND OVER WITH 5YR LOOKBACK (#1) [facility] Start: 03-21-2021 COVID-19 VACCINE (3 - Moderna risk series) COVID-19 VACCINE (3 - Moderna risk series) [facility] Start: 06-18-2020 Adult depression scr eening assessment DEPRESSION SCREENING [facility] Start: 11-17-2019 Urine microalbumin profile [facility] Start: 06-25-2019 Lipid panel Lipid Screening [facility] Start: 06-25-2019 LIPID SCREEN LIPID SCREEN [facility] Start: 2018 PNEUMOCOCCAL: 65+ (1 - PCV) PNEUMOCOCCAL: 65+ (1 - PCV) [facility] Start: 11-01-2017 PNEUMOCOCCAL: 65+ (2 - PCV) PNEUMOCOCCAL: 65+ (2 - PCV) [facility] Start: 05-26-2017 DIABETES SCREEN DIABETES SCREEN [facility] Start: 05-26-2017 Diabetes Screening Diabetes Screenin g [facility] Start: 11-17-2013 Colonoscopy COLONOSCOPY [facility] Start: 11-17-2013 COLORECTAL CANCER SCREENING COLORECTAL CANCER SCREENING [facility] Start: 11-17-2013 Screening for malign ant neoplasm of colon [facility] Start: 2003 SHINGRIX VACCINE (1 of 2) SHINGRIX V ACCINE (1 of 2) [facility] Start: 1998 COLOGUARD (FIT-DNA) COLOGUARD (FIT-D NA) [facility] Start: [address] COLONOGRAPHY [facility] Start: 1998 FECAL OCCULT BLOOD FECAL OCCULT BLOO D [facility] Start: 1998 Screening for malign ant neoplasm of colon [facility] Start: 1998 SIGMOIDOSCOPY SIGMOIDOSCOPY [facility] Start: 1972 SHINGRIX VACCINE (1 of 2) SHINGRIX V ACCINE (1 of 2) [facility] Start: 1971 Anxiety Screening Anxiety Screening [facility] Start: 1971 Depression Screening Depression Scre ening [facility] Immunizations Immunization Date Immunization Notes Care Provider Celia santos 08-26-2024 pneumococcal conjuga te (PCV20) vaccine, 20 valent (PREVNAR 20) Tavares Dupree DO Work Phone: [facility] 08-26-2024 Seasonal trivalent influenza vaccine, adjuvanted, preservative free Tavares Dupree DO Work Phone: [facility] 02-21-2021 COVID-19 vaccine, fu ll dose (MODERNA) Petar Alexander MICROFILM DUPLICATING UNIT SUPERVISOR.STUDENT SERVICES COUNSELOR Work Phone: [facility] 01-24-2021 COVID-19 vaccine, fu ll dose (MODERNA) [place] Alexander MICROFILM DUPLICATING UNIT SUPERVISOR.STUDENT SERVICES COUNSELOR Work Phone: [facility] 08-09-2019 influenza virus vacc ine, unspecified formulation Petar Alexander MICROFILM DUPLICATING UNIT SUPERVISOR.STUDENT SERVICES COUNSELOR Work Phone: [facility] 11-01-2016 pneumococcal polysaccharide vaccine, 23 valent Petar Alexander MICROFILM DUPLICATING UNIT SUPERVISOR.STUDENT SERVICES COUNSELOR Work Phone: [facility] Work Phone: 08-24-2015 influenza, seasonal, injectable Petar Alexander MICROFILM DUPLICATING UNIT SUPERVISOR.STUDENT SERVICES COUNSELOR Work Phone: [facility] 11-17-2009 tetanus toxoid, redu padilla diphtheria toxoid, and acellular pertussis vaccine, adsorbed Petar Alexander MICROFILM DUPLICATING UNIT SUPERVISOR.STUDENT SERVICES COUNSELOR Work Phone: [facility] Payers Date Payer Category Payer Unknown [employer] PPO [id number] 2019-Present [phone] [address] [place] [address] PPO [id number] 2019 Unknown [id number] 2017 Unknown [id number] 1955 Unknown [id number] Social History Date Type Detail Facility Start: 06-15-2015 Tobacco smoking stat us NHIS Ex-smoker [facility] Start: 11-17-1979 End: 11-17-1999 History of tobacco use Current smoker [facility] Start: 11-17-1979 End: 11-17-1999 History of tobacco use Cigarette Smoker [facility] Start: 07-05-2021 End: 07-04-2022 Alcohol intake Current drinker of alcohol (finding) [facility] Start: 1955 Sex Assigned At Not on file [facility] Start: 06-15-2015 End: 12-14-2022 Cigarettes smoked current (pack per day) - Reported 0.5 [facility] Start: 06-15-2015 Tobacco use and exposure Smoke less tobacco non-user [facility] Start: 01-22-2021 End: 07-01-2022 Exposure to SARS-CoV-2 (event) Not sure [facility] Start: 07-04-2022 End: 12-14-2022 Tobacco use panel [facility] Adult Depression Scr eening Assessment 0 [facility] Clinical Notes 02-21-2021 to 08-10-2024 Telephone Encounter - Tammi Blackburn RN - 08/10/2024 2:10 PM EDTTelephone Encounter - Tammi Blackburn RN - 08/10/2024 2:10 PM EDTTelephone Encounter - Shalini Kemp - 08/10/2024 2:01 PM EDT Note Date & Type Note Facility 08-10-2024 Telephone encounter Note Patients last OV was 06/2022. Reviewed OV notes with patient: - Mammogram due June 2023. - Follow up as needed. Pt. will follow up with PCP for yearly mammogram/CBE. Patient stated understanding and stated she will contact her PCP. Tammi Blackburn RN [facility] 08-10-2024 Miscellaneous Notes Patients last OV was 06/2022. Reviewed OV notes with patient: - Mammogram due June 2023. - Follow up as needed. Pt. will follow up with PCP for yearly mammogram/CBE. Patient stated understanding and stated she will contact her PCP. Tammi Blackburn RN Patient called to confirm that she no longer needs to have mammogram. She believes this was discussed last office visit with Petar. Please advise. documented in this encounter [facility] 08-10-2024 Telephone encounter Note Patient called to confirm that she no longer needs to have mammogram. She believes this was discussed last office visit with Petar. Please advise. [facility] Work Phone: 07-04-2022 History of Presen t illness Narrative Chief Complaint Patient presents with: Established Patient HPI: Britney Vanessa is a 67 year old female who presents here today for follow up breast cancer. Per Dr. Dupree's previous note: H/o bilateral screening mammogram 01/14/2012. Note was made of an 8 mm asymmetric area in the right breast. Patient underwent an ultrasound-guided biopsy on 01/30/2012. A clip was placed. Apparently the biopsy demonstrated an invasive carcinoma. MRI of the breast on 02/14/2012 revealed that within the right breast in the subareolar region there was an enhancing malignant appearing 8mm mass appreciated. Despite had been biopsied and a clip had been placed. No other areas of concern within the right breast. No mass or abnormal enhancement was appreciated a left breast. Underwent right breast partial mastectomy with ultrasound-guided wire localization right sentinel lymph node sampling procedure on 02/21/2012. The final pathology revealed an 8 mm tumor. There was a single focus of invasive carcinoma. DCIS was present. It was of solid and cribriform pattern with intermediate nuclear grade. The overall grade was 2. Margins were all negative. Lymphovascular invasion was equivocal. There was a 0.6 mm focus of micrometastasis in 1 of 4 sentinel lymph nodes sampled. Estrogen receptors were quantified at greater than 90%. Progesterone receptors were 75-90%. HER-2 staining at 0. And Oncotype test returned a recurrent score 17. (11% estimated average rate of distant recurrence risk). The patient received adjuvant chemotherapy, Taxotere and cyclophosphamide for 4 cycles. She completed therapy in May of 2012. Received all 4 cycles at full dose on time. Neulasta added cycle #2. She tolerated treatment well. Received adjuvant radiation. She has been on AI therapy with letrozole. Began fall 2011. Pt. was admitted for slurred speech-admitted for TIA. No residual symptoms. Following up with PCP next week for hospital discharge visit. Appetite: No problems there. Energy level: Good. Denies fevers or recent illness. Resp:denies cough or sob Cardiac:denies chest pain/palpitations GI:denies abd pain, n/v, moving bowels regularly :denies dysuria/hematuria Extrem:denies pain Endo:denies hot flashes Neuro:denies symptoms of neuropathy Skin:denies rashes/lesions Heme:denies bleeding The ROS is otherwise negative. Past medical history, appointments, medications, allergies reviewed. No changes. EXAM: BP 139/93 Pulse 80 Temp 37.1 C (98.7 F) Ht 153.3 cm (5' 0.34 ) Wt 70.3 kg (155 lb) SpO2 96% BMI 29.94 kg/m APPEARANCE Well appearing, alert, in no acute distress, well-hydrated, well nourished. HEART RRR with normal S1 and S2, no murmurs LUNG clear to auscultation BREAST FEMALE no mass/nodule b/l LYMPH NODES No cervical lymphadenopathy, No supraclavicular lymphadenopathy, and No axillary lymphadenopathy. ABDOMEN bowel sounds normoactive, soft, non-tender, non-distended, without organomegaly or palpable masses, no tenderness to palpation EXTREMITIES No edema NEURO Awake, alert and oriented x 3, Normal gait, and No involuntary motions. SKIN Skin color, texture, turgor normal, no suspicious rashes or lesions RADIOLOGY: Mammogram 07/01/22: IMPRESSION: NEGATIVE There is no mammographic evidence of malignancy. A 1 year screening mammogram is recommended. ASSESSMENT/PLAN: 1. 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 s/p adjuvant chemotherapy and radiation. - No concerning findings on exam. - Tolerating femara well. Has now completed almost 10 years of therapy. - Reviewed mammogram with pt. - Discontinue femara. - Mammogram due June 2023. - Follow up as needed. Pt. will follow up with PCP for yearly mammogram/CBE. - Pt. aware to call office with any questions/concerns. The patient indicates understanding of these issues and agrees with the plan. All documentation from previous visit of 07/05/21-Dr. Dupree/myself was copied and pasted, documentation has been reviewed and edited as necessary for today's visit. Petar Alexander APRN.KATIA documented in this encounter [facility] 07-01-2022 History of Presen t illness Narrative Radiology Service Progress Note PATIENT NAME: Britney Vanessa DATE OF SERVICE: July 01, 2022 TIME: 10:12 AM PATIENT IDENTITY VERIFICATION COMPLETED USING TWO (2) IDENTIFIERS: Name and Date of confirmed by patient verbally. FALL SCREENING: Has the patient had 2 falls in the last year or 1 fall with injury or currently using an Ambulatory Assistive Device (Walker, Cane, Wheelchair, Crutches, etc.)? No PATIENT GENDER DATA: Female. status: : No status: NO. PATIENT RELEVANT IMPLANT DATA REVIEWED: Not Applicable RADIOLOGY DEPARTMENT: Mammography PERIPHERAL IV DATA: Not applicable SIGNED BY: RT Shrei(R) July 01, 2022 10:12 AM documented in this encounter [facility] 05-13-2022 Miscellaneous Notes Patient notified. Elizabeth Del Angel LPN Please inform pt. that the recommendation for therapy has changed and she has completed therapy. Refill not needed. Follow up as scheduled. Thank you. Patient phones requesting refills as follows: Pending Prescriptions Disp Refills LETROZOLE 2.5 MG TABLET 90 tablet 0 Sig: TAKE 1 TABLET BY MOUTH ONCE DAILY SHERIN: Yes Please review and advise. Sandi Hanks LPN documented in this encounter [facility] 03-05-2022 Miscellaneous Notes Patient has been identified by name and date of : Yes Last office visit in this department: 05/26/2014 RX INSTRUCTIONS: Patient aware RX will be sent to pharmacy. No need to notify patient. Patient phones requesting refills as follows: Pending Prescriptions Disp Refills LETROZOLE 2.5 MG TABLET 90 tablet 3 Sig: Take 1 tablet by mouth once daily. SHERIN: No Please review and advise. Angie Reece documented in this encounter [facility] 02-21-2021 History of Presen t illness Narrative Radiology Service Progress Note PATIENT NAME: Britney Vanessa DATE OF SERVICE: February 21, 2021 TIME: 2:16 PM PATIENT IDENTITY VERIFICATION COMPLETED USING TWO (2) IDENTIFIERS: Name and Date of confirmed by patient verbally. FALL SCREENING: Has the patient had 2 falls in the last year or 1 fall with injury or currently using an Ambulatory Assistive Device (Walker, Cane, Wheelchair, Crutches, etc.)? No PATIENT GENDER DATA: Female. status: : No status: NO. PATIENT RELEVANT IMPLANT DATA REVIEWED: Not Applicable RADIOLOGY DEPARTMENT: General X-ray: Exam(s) Completed: Lower Extremity X-Ray(s): Ankle, Right and Wt. Bearing and Foot, Right and Wt. Bearing: PERIPHERAL IV DATA: Not applicable SIGNED BY: RT Lilliana February 21, 2021 2:16 PM documented in this encounter [facility] Evaluation note Diagnosis Personal history of malignant neoplasm of breast Encounter for screening mammogram for high-risk patient [facility] Diagnosis Personal history of malignant neoplasm of breast- Primary [facility] Diagnosis Acute right ankle pain Foot pain, right Pain in limb documented in this encounter [facility] for referral (narrative)* Diagnostic Procedure Only (Routine) - Closed Specialty Diagnoses / Procedures Referred By Zoë weiner Referred To Contact [facility] Diagnoses Personal history of malignant neoplasm of breast Encounter for screening mammogram for high-risk patient Procedures YARIEL SCREENING W SALINAS SCREENING BREAST DGTL SALINAS UNI/BILAT ADD ON SCREENING MAMMOGRAPHY BI 2-VIEW BREAST INC Petar Medrano APRN.CNP [address] [place] [address] [facility] [address] [place] [address] Referral ID Status Reason Start Date Expiration Date V isits Requested Visits Authorized Closed Auto-Generate d Referral 07/01/2022 11/16/2022 1 1 [facility] for visit Narrative* Diagnostic Procedure Only (Routine) - Closed Specialty Diagnoses / Procedures Referred By Zoë weiner Referred To Contact [facility] Diagnoses Personal history of malignant neoplasm of breast Encounter for screening mammogram for high-risk patient Procedures YARIEL SCREENING W SALINAS SCREENING BREAST DGTL SALINAS UNI/BILAT ADD ON SCREENING MAMMOGRAPHY BI 2-VIEW BREAST INC Petar Medrano APRN.STUDENT SERVICES COUNSELOR [address] [place] [address] [facility] [address] [place] [address] Referral ID Status Reason Start Date Expiration Date V isits Requested Visits Authorized Closed Auto-Generate d Referral 07/01/2022 11/16/2022 1 1 [facility] Summary Purpose Family History No Family History Records FoundNo Family History Records Found Advance Directives No Advanced Directives Records FoundNo Advanced Directives Records Found Additional Source Comments INFORMATION SOURCE (unrecogn ized section and content) DATE CREATED AUTHOR 10/26/2018 [facility] ([place]) DATE CREATED AUTHOR AUTHOR'S KIMI ROSE 08/13/2024 [facility] Source Comments (unrecognize d section and content) In the event this informatio n is protected by the Federal Confidentiality of Alcohol and Drug Abuse Patient Records regulations: The Federal rules restrict any use of the information to criminally investigate or prosecute any alcohol or drug abuse patient.[facility] the event this information is protected by the Federal Confidentiality of Alcohol and Drug Abuse Patient Records regulations: The Federal rules restrict any use of the information to criminally investigate or prosecute any alcohol or drug abuse patient.[facility] the event this information is protected by the Federal Confidentiality of Alcohol and Drug Abuse Patient Records regulations: The Federal rules restrict any use of the information to criminally investigate or prosecute any alcohol or drug abuse patient.[facility] the event this information is protected by the Federal Confidentiality of Alcohol and Drug Abuse Patient Records regulations: The Federal rules restrict any use of the information to criminally investigate or prosecute any alcohol or drug abuse patient.[facility] the event this information is protected by the Federal Confidentiality of Alcohol and Drug Abuse Patient Records regulations: The Federal rules restrict any use of the information to criminally investigate or prosecute any alcohol or drug abuse patient.[facility] the event this information is protected by the Federal Confidentiality of Alcohol and Drug Abuse Patient Records regulations: The Federal rules restrict any use of the information to criminally investigate or prosecute any alcohol or drug abuse patient.[facility] the event this information is protected by the Federal Confidentiality of Alcohol and Drug Abuse Patient Records regulations: The Federal rules restrict any use of the information to criminally investigate or prosecute any alcohol or drug abuse patient.[facility] Reason for Visit (unrecogniz ed section and content) Reason Onset Date Comments Refill Request 03/05/2022 Refill Request 04/04/2022 Reason Comments Refill Request Reason Comments Established Patient Specialty Diagnoses / Procedures Referred By Contac t Referred To Contact Hematology/Oncology / HEMATOLOGY/ONCOLOGY Diagnoses Personal history of malignant neoplasm of breast 1 YR OV/MAMM 07/01/22* Procedures OFFICE/OUTPATIENT ESTABLISHED MOD MDM 30-39 MIN MD Benjamin Manjarrez Darby, [employer]ATING UNIT SUPERVISOR.STUDENT SERVICES COUNSELOR [address] [place] [address] Referral ID Status Reason Start Date Expiration Date Visits Re quested Visits Authorized [id number] Closed 07/04/2022 11/16/2022 1 1 Reason Comments Patient Question Specialty Diagnoses / Procedures Referred By Contac t Referred To Contact Radiology / [facility] Diagnoses Xr foot and Ankle rm 10 Procedures XR GENERAL 7 Cecil Mazariegos, [employer] UNIT SUPERVISOR.STUDENT SERVICES COUNSELOR [address] [place] [address] [facility] [address] [place] [address] Referral ID Status Reason Start Date Expiration Date Visits Re quested Visits Authorized [id number] Closed 02/21/2021 05/22/2021 99 99 Care Teams (unrecognized sec tion and content) Chinchilla Machine Operator Relationship Specialty Start Date End Date Tavares Moise MD PCP - General Family Practice 06/12/16 Chinchilla Machine Operator Relationship Specialty Start Date End Date Tavares Moise MD PCP - General Family Practice 06/12/16 Chinchilla Machine Operator Relationship Specialty Start Date End Date Tavares Moise MD PCP - General Family Practice 06/12/16 Chinchilla Machine Operator Relationship Specialty Start Date End Date Tavares Moise MD PCP - General Family Medicine 06/12/16 Chinchilla Machine Operator Relationship Specialty Start Date End Date Tavares Moise MD PCP - General Family Medicine 06/12/16 Chinchilla Machine Operator Relationship Specialty Start Date End Date Tavares Moise MD PCP - General Family Medicine 06/12/16 FOR RECORDS PERTAINING TO PATIENTS WHO ARE OR HAVE BEEN ENROLLED IN A CHEMICAL DEPENDENCY/SUBSTANCEABUSE PROGRAM, SOME INFORMATION MAY BE OMITTED. This clinical summary was aggregated from multiple sources. Caution should be exercised in using it in the provision of clinical care. This summary normalizes information from multiple sources, and as a consequence, information in this document may materially change the coding, format and clinical context of patient data. In addition, data may be omitted in some cases. CLINICAL DECISIONS SHOULD BE BASED ON THE PRIMARY CLINICAL RECORDS. [facility]. provides no warranty or guarantee of the accuracy or completeness of information in this document.
== END | disposition home or self-care (01) ==
LOC: OPBD 13:31
PROVIDERS: PCP Family Medicine; Visit Provider Family Medicine
DX: Z12.31 Encounter for screening mammogram for malignant neoplasm of breast (principal); Z12.2 Encounter for screening for malignant neoplasm of respiratory organs; F17.210 Nicotine dependence, cigarettes, uncomplicated; N95.9 Unspecified menopausal and perimenopausal disorder
CPT/HCPCS: 71271; 77063; 77067; 77080

== ENCOUNTER → 2024-10-12 | Outpatient (CLI) | payer MEDICARE, OTHER, SELFPAY ==
--- NOTE | 2024-10-12 08:00 | PET_ITS ---
EXAMINATION: FDG PET CT HISTORY: 69-year-old female with history of pulmonary nodularity. COMPARISON EXAMINATION: CT of the chest report 09/09/2024 TECHNIQUE: Following the intravenous administration of 14.32 mCi of F-18 deoxyglucose, via the right wrist, multiplanar image acquisitions of the neck, chest, abdomen and pelvis to the level of mid thigh, obtained at one hour post radiopharmaceutical administration contemporaneously interpreted with the current CT of the neck, chest, abdomen and pelvis to the level of mid thigh, dated 10/12/2024 via coregistration reveals: BLOOD GLUCOSE LEVEL:?105 mg/dL?HEIGHT:?62 inches?WEIGHT: 163 lbs. FINDINGS: Head/Neck: There is no evidence of abnormal increased glucose metabolism in the pharyngeal mucosal space, parapharyngeal space, bilateral-lateral and anterior neck, hypopharynx and distribution of the larynx. The visualized portion of the cerebral cortical-subcortical structures demonstrate symmetric and preserved glucose metabolism. CHEST: No abnormal glucose metabolism is identified in the right-left pulmonary parenchyma, the bilateral hemithorax at the pleural interface, the mediastinal and thoracic perihilar structures. Pertinent chest CT findings are as follows. The identified parenchymal density noted in the left upper lobe hypermetabolic discerned on the CT of the chest examination dated 09/09/2024 is not apparent on the current examination. Atherosclerotic calcification is defined in the thoracic aorta without evidence of aneurysm. There is minimal coronary arterial calcification is observed. Mediastinal soft tissue densities are nontracer avid. Surgical clips are identified in the right axilla. Right and left axillary soft tissue densities are nontracer avid. Abdomen/Pelvis: Normal physiologic uptake is noted in the hepatic and splenic parenchyma. There is symmetric demonstration of the right and left kidneys, normal uptake in the urinary bladder and visualized intestinal tract. Review of CT of the abdomen and pelvis reveals the following. The gallbladder is surgically absent. Atherosclerotic calcification is defined in the abdominal aorta without evidence of dilatation. Pelvic arterial calcification is encountered. Right and left inguinal soft tissue densities are nonglucose avid. SKELETAL: Degenerative changes noted within the axial skeleton demonstrate no evidence of quantitatively significant increased FDG uptake. PET/PET/CT Tumor Base -Thigh Init IMPRESSION: 1. NEGATIVE EXAMINATION. There is no definitive scintigraphic evidence of viable neoplasm. 2. Metabolic, morphologic stability may be ensured in the bilateral hemithorax with repeat FDG PET CT imaging in 3-6 months if clinically indicated. Electronic Signature Tim Bennett D.O. Accurate Quantification of SUVs for this report are calculated using the exclusive [employer]. ([place]. Patent No. [id number] [phone] B2 [phone] [place] patent [phone]). Standardization and correction of the FDG SUV metric via [employer] technology allow for vendor non-specific objective quantitative examination comparison and optimization of the sensitivity and specificity of the FDG PET-CT examination. . [email or web address] Electronically Signed: Tim Bennett DO at 12:31 EST ,
== END | disposition home or self-care (01) ==
PROVIDERS: PCP Family Medicine; Referring Provider Internal Medicine Pulmonary Disease; Visit Provider Internal Medicine Pulmonary Disease
DX: R91.1 Solitary pulmonary nodule (principal)
CPT/HCPCS: 78815; A9552

== ENCOUNTER → 2025-07-27 | Outpatient (CLI) | payer MEDICARE, OTHER, SELFPAY ==
--- OUTSIDE RECORDS SUMMARY | 2025-07-27 12:46 | XMS RPT_ITS | CCD ---
Author Organization [facility] Care Team Providers Care Process Engineering Intern Name Role Phone JESÚS HAYS Unavailable Unavailable Tavares Moise MD Primary Care Provider Tavares Moise MD Primary Care Provider [phone] Dr. Tavares Moise Primary Care Provider Dr. Andrés Cuellar Emergency Provider Dr. Alondra Balderas Admit Provider Dr. Alondra Balderas Other Provider RAYMUNDO Denton Attending Provider Unavail able Dr. Tavares Hernandez Attending Provider Dr. Penelope Hughes Other Provider Tavares Moise MD Primary Care Provider Lg Varma V Referring Unavailable Lg Varma V Attending Unavailable Tavares Moise Primary Care Unavailable Tavares Moise Attending Unavailable Tavares Moise Primary Care Unavailable Tavares Moise Attending Unavailable Jose Maria, Tavares Primary Care Unavailable Medications Current Medications Medication Drug Class(es) Dates [...] oral tablet (7 sources) Vitamin D Start: 06-28-20 15 take 1 tablet by mouth once daily cholecalciferol (VITAMIN D3) 2,000 unit tablet Take 1 tablet by mouth once daily. 0 06/28/2015 Active Comment on above: Take 1 tablet by bill once daily. lisinopril 20 mg oral tablet (11 sources) Angiotensin Converting Enzyme Inhibitor Start: 07-01-20 take 20 mg by mouth once daily Lisinopril Active 20 MG PO DAILY July 01, 2022 12:00am Start: 12-27-2020 take 2 tablets by mo uth once daily lisinopril (ZESTRIL, PRINIVIL) 10 mg [...] 1 capsule by mo uth once daily. rosuvastatin calcium 5 mg oral tablet (4 sources) HMG-CoA Reductase Inhibitor Start: 2 take 5 mg by mouth once daily Rosuvastatin Active 5 MG PO DAILY July 01, 2022 12:00am zolpidem tartrate 10 mg oral tablet (11 sources) gamma-Aminobutyric Acid-ergic Agonist Start: 5 take 1 tablet by mouth at bedtime [...] Classification Problem Date Documented Da te Episodic/Chronic Essential hypertension (1 source) Essential (primary) hypertension; Translations: [Essential (primary) hypertension] Onset: 08-25-2024 Chronic Other connective tissue disease (1 source) Pain in right foot; Translations: [Pain in right foot] 02-21-2021 Episodic Other lower respiratory disease (1 source) Solitary pulmonary nodule; Translations: [Solitary pulmonary nodule] Onset: 11-08-2024 Episodic Other non-traumatic joint disorders (1 source) Acute ankle pain; Translations: [Pain in right ankle and joints of right foot] 02-21-2021 Episodic Other screening for suspected conditions (not mental disorders or infectious disease) (4 sources) Encounter for screening for malignant neoplasm of colon; Translations: [Patient encounter status] Onset: 10-02-2018 Episodic Transient cerebral ischemia (6 sources) Transient cerebral ischemia; Translations: [Transient cerebral ischemic attack, unspecified] Chronic Past or Other Problems Problem Classification Problem Date Documented Da te Episodic/Chronic Cancer of breast (9 sources) History of malignant neoplasm of breast; Translations: [Personal history of malignant neoplasm of breast] Onset: 05-26-2014 12-10-2016 Episodic Results Test Name Value Interpretation Reference Range Facility PET/CT Tumor Base -Thigh Ini [facility] 10-12-2024 PET/CT Tumor Base -Thigh Init [facility] Imaging Services [address] [place] [address] [id number] PET/CT Tumor Base -Thigh Init MR#: [id number] Acct: [id number] Name: BRITNEY VANESSA Rep #: [id number] : 1955 F 69 From: Tim Cartwright PCP: Dr. Tavares Moise MD Status: [facility] Study: PET/CT Tumor Base -Thigh Init Date of Exam: Exam# [id number] Ordering Dr: [place] [id number] EXAMINATION: FDG PET CT HISTORY: 69-year-old female with history of pulmonary nodularity. COMPARISON EXAMINATION: CT of the chest report 09/09/2024 TECHNIQUE: Following the intravenous administration of 14.32 mCi of F-18 deoxyglucose, via the right wrist, multiplanar image acquisitions of the neck, chest, abdomen and pelvis to the level of mid thigh, obtained at one hour post radiopharmaceutical administration contemporaneously interpreted with the current CT of the neck, chest, abdomen and pelvis to the level of mid thigh, dated 10/12/2024 via coregistration reveals: BLOOD GLUCOSE LEVEL:?105 mg/dL?HEIGHT:?62 inches?WEIGHT: 163 lbs. FINDINGS: Head/Neck: There is no evidence of abnormal increased glucose metabolism in the pharyngeal mucosal space, parapharyngeal space, bilateral-lateral and anterior neck, hypopharynx and distribution of the larynx. The visualized portion of the cerebral cortical-subcortical structures demonstrate symmetric and preserved glucose metabolism. CHEST: No abnormal glucose metabolism is identified in the right-left pulmonary parenchyma, the bilateral hemithorax at the pleural interface, the mediastinal and thoracic perihilar structures. Pertinent chest CT findings are as follows. The identified parenchymal density noted in the left upper lobe hypermetabolic discerned on the CT of the chest examination dated 09/09/2024 is not apparent on the current examination. Atherosclerotic calcification is defined in the thoracic aorta without evidence of aneurysm. There is minimal coronary arterial calcification is observed. Mediastinal soft tissue densities are nontracer avid. Surgical clips are identified in the right axilla. Right and left axillary soft tissue densities are nontracer avid. Abdomen/Pelvis: Normal physiologic uptake is noted in the hepatic and splenic parenchyma. There is symmetric demonstration of the right and left kidneys, normal uptake in the urinary bladder and visualized intestinal tract. Review of CT of the abdomen and pelvis reveals the following. The gallbladder is surgically absent. Atherosclerotic calcification is defined in the abdominal aorta without evidence of dilatation. Pelvic arterial calcification is encountered. Right and left inguinal soft tissue densities are nonglucose avid. SKELETAL: Degenerative changes noted within the axial skeleton demonstrate no evidence of quantitatively significant increased FDG uptake. PET/PET/CT Tumor Base -Thigh Init IMPRESSION: 1. NEGATIVE EXAMINATION. There is no definitive scintigraphic evidence of viable neoplasm. 2. Metabolic, morphologic stability may be ensured in the bilateral hemithorax with repeat FDG PET CT imaging in 3-6 months if clinically indicated. Electronic Signature Tim Black, D.O. Accurate Quantification of SUVs for this report are calculated using the exclusive [employer] Technology. (U.S. Patent No. [phone] [phone] B2 [phone] patent [phone]). Standardization and correction of the FDG SUV metric via [employer] technology allow for vendor non-specific objective quantitative examination comparison and optimization of the sensitivity and specificity of the FDG PET-CT examination. . [email or web address] Electronically Signed: Tim Bennett DO at 12:31 EST , CC: Dr. Tavares Moise MD; Dr. Lg Varma MD Car Repossessor: Signed Normal [facility] Dexa Bone Density Studyon Dexa Bone Density Study [facility] Imaging Services [address] [place], [place] [address] Dexa Bone Density Study MR#: [id number] Acct: [id number] Name: BRITNEY VANESSA Rep #: [id number] : 1955 F 69 From: Jimbo segundo MD PCP: Dr. Tavares Moise MD Status: [facility] Study: Dexa Bone Density Study Date of Exam: 09/09/24 Exam# [id number] Ordering [place]: [place] [id number] STUDY: DUAL ENERGY X-RAY ABSORPTIOMETRY / DXA REASON FOR EXAM: Female, 69 years old. N95.9 TECHNIQUE: Bone Mineral Density (BMD) measurements of lumbar spine and bilateral hips were obtained. COMPARISON: Comparison is made with prior study dated July 25, 2021. FINDINGS: Lumbar Spine (L1-L4): g/cm2 (0.826) / T-score (-2.1) / Z-score (0.1) Findings are suggestive of osteopenia with a high fracture risk. Left Femur Total: g/cm2 (0.730) / T-score (-1.7) / Z-score (-0.2) Left Femoral Neck: g/cm2 (0.593) / T-score (-2.3) / Z-score (-0.4) Right Femur Total: g/cm2 (0.752) / T-score (-1.6) / Z-score (0.0) Right Femoral Neck: g/cm2 (0.599) / T-score (-2.3) / Z-score (-0.4) The T-Scores on the most recent prior examination were: Lumbar Spine (L1-L4): There has been improvement of bone density since the previous examination. Left Femur Total: which represents a worsening of 1.5%. Right Femur Total: which represents a worsening of 0.3%. BD/Dexa Bone Density Study IMPRESSION: The patient is considered osteopenic as outlined below according to World Manuel Organization (WHO) criteria with a high fracture risk. There has been worsening of bone density since the previous examination. Reference Information: The T-score is the number of standard deviations above or below the standard which is normal for young adults at their peak bone mineral density. The World Health Organization (WHO) interprets the T-scores as follows: Above -1 Normal bone density Between -1 and -2.5 Osteopenia Equal to / or below -2.5 Osteoporosis As a practical clinical guideline, osteopenia may be graded as follows: Mild -1 through -1.5 Moderate -1.6 through -2.0 Severe -2.1 through -2.4 The Z-score is the number of standard deviations above or below age-matched controls. A Z-score of less than -1.5 would be considered abnormal. References: 1. NIH Osteoporosis and Related Bone Diseases www osteo.org 2. International Society for Clinical Densitometry www iscd.org 3. National Osteoporosis Foundation www nof.org Electronically Signed: Jimbo Olivo MD at 15:29 EDT , CC: Dr. Tavares Moise MD Car Repossessor: Signed Normal [facility] Low Dose CT Lung Screeningon 09-09-[address] Lung Screening [facility] Imaging Services [address] [place] [address] Lung Screening MR#: [id number] Acct: [id number] Name: BRITNEY VANESSA Rep #: [id number] : 1955 F 69 From: Jimbo segundo MD PCP: Dr. Tavares Moise MD Status: [facility] Study: Low Dose CT Lung Screening Date of Exam: 09/09 Exam# [id number] Ordering Dr: [place] [id number] STUDY: LOW DOSE CT LUNG CANCER SCREENING REASON FOR EXAM: Female, 69 years old. NICOTINE DEPENDENCE patient swallowed half a pack of cigarettes per day for 45 years. Patient quit smoking 5 years ago. Patient has a history of a prior right breast cancer and lumpectomy. RADIATION DOSAGE (If Supplied By Facility): CTDIvol = ( 2.39 ) mGy, DLP = ( 82.5 ) mGycm TECHNIQUE: No contrast was administered. Low dose technique was utilized (average mAS-38 and kVp 120). 1.25 mm axial source images with a slice interval of 1.25-mm were reconstructed in lung windows. 2.5 mm axial source images with a slice interval of 2.5-mm were reconstructed in lung windows. 5.0 mm axial source images with a slice interval of 5.0-mm were reconstructed in soft tissue windows. COMPARISON: None. NODULES: There is a 2 cm x 1.3 cm x 1.3 cm irregular nodular density in the posterolateral aspect of the lingular segment of the left upper lobe. This most likely represents scarring although a neoplastic process cannot be excluded. Emphysema: Hyperinflation. Mild degree of emphysematous changes in both lungs. Endobronchial lesion: None Aorta: Mild degree of atherosclerotic plaque formation. CORONARY ARTERIES: Coronary artery calcification is seen. Heart: Unremarkable Pulmonary artery: Unremarkable Mediastinal nodes: Unremarkable Other chest and abdominal findings: CT/Low Dose CT Lung Screening IMPRESSION: Lung-RADS category 4B - Chest CT with or without contrast, PET/CT and/or tissue sampling can be obtained depending on the probability of malignancy and comorbidities. IMPORTANT NOTES FOR USE: ACR Lung-RADS Version 1.1 Assessment Categories Release Date: 2018 Category: Coded 0-4 bases on nodule(s) with highest degree of suspicion. Negative screen is defined as categories 1 and 2; a positive screen is defined as categories 3 and 4. Category 3 and 4A nodules that are unchanged on interval CT should be coded as category 2, and individuals returned to screening in 12 months. Category 4X: Category 3 or 4 nodules with additional imaging findings that increase the suspicion of lung cancer, such as spiculation, GGN that doubles in size in 1 year, enlarged lymph notes, etc. Category Modifiers: S (significant finding unrelated to lung cancer) Electronically Signed: Jimbo Olivo MD at 8:27 EDT Reading Location ID and State: [address] [place] [address] , Service support , CC: Dr. Tavares Moise MD Car Repossessor: Signed Normal [facility] SCRN MAMM (CAD)W/SALINAS BILATo n 09-09-2024 SCRN MAMM (CAD)W/SALINAS [facility] Imaging Services [address] [place] [address] SCRN MAMM (CAD)W/SALINAS BILAT MR#: [id number] Acct: [id number] Name: BRITNEY VANESSA Rep #: [id number] : 1955 F 69 From: Jimbo segundo MD PCP: Dr. Tavares Moise MD Status: [facility] Study: SCRN MAMM (CAD)W/SALINAS BILAT Date of Exam: 08/18 03/10 Exam# [id number] Ordering Dr: [place] [id number] MAMMOGRAPHY - BILATERAL SCREENING REASON FOR EXAM: Female, 69 years old. Routine annual screening examination. PERTINENT HISTORY: Mother with breast cancer. Right excisional breast biopsy. TECHNIQUE: Digital bilateral breast [place] (3D mammographic acquisition) in the CC and MLO projections. 2-D mediolateral oblique (MLO) and craniocaudad (CC) views of both breasts were obtained. CAD: Full Field Digital Mammography with Computer Added Detection was performed. COMPARISON: Comparison is made with prior outside examination dated July 01, 2022. FINDINGS: Breast Composition: The breasts are almost entirely fatty. There are no dominant masses or suspicious calcifications. Surgical clips are seen in the right axilla. There is evidence of a retraction of the periareolar nipple complex most likely secondary to prior excisional breast biopsy. No other significant abnormalities are identified. There has been no significant change since the prior study. BI/SCRN MAMM (CAD)W/SALINAS BILAT IMPRESSION: Stable bilateral screening mammogram. Yearly follow-up mammogram recommended. (A) ASSESSMENT CATEGORY: BIRADS Category 2: Benign. A letter regarding these results will be sent to the patient by the facility within 30 days. Approximately 10% of breast cancers are not detected by mammography. A normal mammogram should not delay biopsy of a clinically suspicious abnormality. [id number] Electronically Signed: Jimbo Olivo MD at 8:41 EST , CC: Dr. Tavares Moise MD Car Repossessor: Signed [facility]N Telephone (ARTURO) SAMUELBRITNEY ([id number]) 1955 F Date Time Provider Department 08/10/24 [...] Date Reviewed: 07/04/2022 Reviewed by: Petar Alexander APRN.DIRECTOR OF COMMUNICATIONS - Fully Assessed Reason for Visit: Patient Question [0597] Prescriptions as of 08/10/2024 - lisinopril (ZESTRIL, [...] Status:Closed by TAMMI BLACKBURN on 08/10/24 Normal [facility] Prof cheri 08-02-2024 Albumin [Mass/Vol] 3.5 g/dL Normal 3.2-5.0 [facility] Comment on above: Performed By: #### L 500.4050, L500.4100 #### [facility] [address] [place], [address] Albumin/Globulin [Mass ratio] 1.2 {ratio} Normal 0.9-2.4 [facility] Comment on above: Performed By: #### L 500.4050, L500.4100 #### [facility] [address] [place], [address] ALK P 83 U/L Normal 45-117 [facility] Comment on above: Performed By: #### L 500.4050, L500.4100 #### [facility] [address] [place], [address] ALT [Catalytic activity/Vol] 20 U/L Normal 13-56 [facility] Comment on above: Performed By: #### L 500.4050, L500.4100 #### [facility] [address] [place], [address] AST [Catalytic activity/Vol] 11 U/L Low 15-37 [facility] Comment on above: Performed By: #### L 500.4050, L500.4100 #### [facility] [address] [place], [address] Bilirubin [Mass/Vol] 0.50 mg/dL Normal 0.20-1.00 [facility] Comment on above: Result Comment: For patients on eltrombopag therapy, use of Dimension [place] TBIL is not recommended. Performed By: #### L 500.4050, L500.4100 #### [facility] [address] [place], [address] BUN/CRE 18.2 RATIO Normal 10-20 [facility] Comment on above: Performed By: #### L 500.4050, L500.4100 #### [facility] [address] [place], [address] CA,Total 9.6 mg/dL Normal 8.5-10.1 [facility] Comment on above: Performed By: #### L 500.4050, L500.4100 #### [facility] [address] [place], [address] Chloride [Moles/Vol] 113 mmol/L High 98-107 [facility] Comment on above: Performed By: #### L 500.4050, L500.4100 #### [facility] [address] [place], [address] CO2 [Moles/Vol] 24.0 mmol/L Normal 21.0-32.0 [facility] Comment on above: Performed By: #### L 500.4050, L500.4100 #### [facility] [address] [place], [address] Creatinine [Mass/Vol] 0.99 mg/dL Normal 0.55-1.02 [facility] Comment on above: Result Comment: The validity of the calculated GFR GFRAA in patients over 70 years has not been determined. Clinical correlation is essential. Performed By: #### L 500.4050, L500.4100 #### [facility] [address] [place], [address] EST GFR - AA 71 mL/min Normal >60 [facility] Comment on above: Result Comment: Afri can [place]ar[place] GFR Calc Performed By: #### L 500.4050, L500.4100 #### [facility] [address] [place], [address] GAP 6 Normal 5-15 [facility] Comment on above: Performed By: #### L 500.4050, L500.4100 #### [facility] [address] [place], [address] GFR/1.73 sq M.predicted among non-blacks MDRD (S/P/Bld) [Vol rate/Area] 59 mL/min/{1.73_m2} Low >60 [facility] Comment on above: Result Comment: Non- GFR Calc Performed By: #### L 500.4050, L500.4100 #### [facility] [address] [place], [address] Globulin (S) [Mass/Vol] 2.8 g/dL Normal 2.2-4.2 [facility] Comment on above: Performed By: #### L 500.4050, L500.4100 #### [facility] [address] [place], [address] Glucose [Mass/Vol] 132 mg/dL High 74-106 [facility] Comment on above: Result Comment: Fast ing Glucose result greater than or equal to 126 mg/dL suggests DIABETES MELLITUS per A.D.A. criteria. Performed By: #### L 500.4050, L500.4100 #### [facility] [address] [place], [address] Potassium [Moles/Vol] 4.5 mmol/L Normal 3.5-5.1 [facility] Comment on above: Performed By: #### L 500.4050, L500.4100 #### [facility] [address] [place], [address] Sodium [Moles/Vol] 143 mmol/L Normal 136-145 [facility] Comment on above: Performed By: #### L 500.4050, L500.4100 #### [facility] [address] [place], [address] T PROT 6.3 g/dL Low 6.4-8.2 [facility] Comment on above: Performed By: #### L 500.4050, L500.4100 #### [facility] [address] [place], [address] Urea nitrogen [Mass/Vol] 18 mg/dL Normal 7-18 [facility] Comment on above: Performed By: #### L 500.4050, L500.4100 #### [facility] [address] [place], [address] Lipid Profileon 08-02-2024 Cholesterol [Mass/Vol] 143 mg/dL Normal 200 [facility] Comment on above: Result Comment: <200 mg/dL Desirable 200-240 mg/dL Borderline >240 mg/dL High Risk Performed By: #### L 500.4050, L500.4100 #### [facility] [address] [place], [address] Cholesterol in HDL [Mass/Vol] 53 mg/dL Normal [facility] Comment on above: Result Comment: The drugs N-Acetylcysteine and Metamizole may falsely depress this assay. Reference Range HDL <40 mg/dL Low HDL Cholesterol HDL >or= 60 mg/dL High HDL Cholesterol Performed By: #### L 500.4050, L500.4100 #### [facility] [address] [place], [address] Cholesterol in LDL [Mass/Vol] 74 mg/dL Normal 0-130 [facility] Comment on above: Performed By: #### L 500.4050, L500.4100 #### [facility] [address] [place], [address] Cholesterol in VLDL [Mass/Vol] 16 mg/dL Normal 5-40 [facility] Comment on above: Performed By: #### L 500.4050, L500.4100 #### [facility] [address] [place], [address] Triglyceride [Mass/Vol] 81 mg/dL Normal [facility] Comment on above: Result Comment: The drugs N-Acetylcysteine and Metamizole may falsely depress this assay. Serum Triglycerides Reference Interval Normal <150 mg/dL Borderline high 150 - 199 mg/dL High 200 - 499 mg/dL Very High > or = 500 mg/dL Performed By: #### L 500.4050, L500.4100 #### [facility] [address] [place], [address] Basophil percentageOrdered B y: Tavares Moise on 08-08-2023 Chloride [Moles/Vol] 112 mmol/L 98-107 [facility] Cholesterol [Mass/Vol] 140 mg/dL <200 [facility] Comment on above: <200 mg/dL Desirable 200-240 mg/dL Borderline >240 mg/dL High Risk Glucose [Mass/Vol] 127 mg/dL 74-106 [facility] Comment on above: Fasting Glucose resu lt greater than or equal to 126 mg/dL suggests DIABETES MELLITUS per A.D.A. criteria. Potassium [Moles/Vol] 4.1 mmol/L 3.5-5.1 [facility] Sodium [Moles/Vol] 143 mmol/L 136-145 [facility] Triglyceride [Mass/Vol] 90 mg/dL <199 [facility] Comment on above: The drugs N-Acetylcy steine and Metamizole may falsely depress this assay.Serum Triglycerides Reference Interval Normal <150 mg/dL Borderline high 150 - 199 mg/dL High 200 - 499 mg/dL Very High > or = 500 mg/dL Laboratory - Chemistry and C hemistry - challengeOrdered By: Tavares Moise on 08-08-2023 CO2 [Moles/Vol] 28.0 mmol/L 21.0-32.0 [facility] Urea nitrogen/Creatinine [Mass ratio] 15.4 mg/mg 10-20 [facility] No Panel InformationOrdered By: Tavares Moise on 08-08-2023 Estimated GFR (MDRD) Amer 73 mL/min >60 [facility] Comment on above: GFR Calc Estimated GFR (MDRD) Non-Af Amer 60 mL/min >60 [facility] Comment on above: Non- GFR Calc Serum or plasma calcium christal urement (mass/volume)Ordered By: Tavares Moise on 08-08-2023 Calcium [Mass/Vol] 8.9 mg/dL 8.5-10.1 [facility] Serum or plasma cholesterol in HDL measurement (mass/volume)Ordered By: Tavares Moise on 08-08-2023 Cholesterol in HDL [Mass/Vol] 44 mg/dL >40 [facility] Comment on above: The drugs N-Acetylcy steine and Metamizole may falsely depress this assay. Reference Range HDL <40 mg/dL Low HDL Cholesterol HDL >or= 60 mg/dL High HDL Cholesterol Serum or plasma cholesterol in VLDL measurement (mass/volume)Ordered By: Tavares Moise on 08-08-2023 Cholesterol in VLDL [Mass/Vol] 18 mg/dL 5-40 [facility] Serum or plasma creatinine m easurement (mass/volume)Ordered By: Tavares Moise on 08-08-2023 Creatinine [Mass/Vol] 0.97 mg/dL 0.55-1.02 [facility] Comment on above: The validity of the calculated GFR & GFRAA in patients over 70 years has not been determined. Clinical correlation is essential. Serum or plasma low density lipoprotein (LDL) cholesterol measurement (mass/volume)Ordered By: Tavares Moise on 08-08-2023 Cholesterol in LDL [Mass/Vol] 78 mg/dL 0-130 [facility] Serum or plasma urea nitroge n measurement (mass/volume)Ordered By: Tavares Moise on 08-08-2023 Urea nitrogen [Mass/Vol] 15 mg/dL 7-18 [facility] Thin prep Papanicolaou smear with manual screeningOrdered By: Tavares Moise on 08-08-2023 Thin prep Papanicolaou smear with manual screening 3 5-15 [facility] Basophil percentageOrdered B y: Dr. Moise on 01-31-2023 Bilirubin [Mass/Vol] 0.40 mg/dL 0.20-1.00 [facility] Comment on above: For patients on eltr ombopag therapy, use of Dimension [place] TBIL is not recommended. Chloride [Moles/Vol] 110 mmol/L 98-107 [facility] Cholesterol [Mass/Vol] 146 mg/dL <200 [facility] Comment on above: <200 mg/dL Desirable 200-240 mg/dL Borderline >240 mg/dL High Risk Glucose [Mass/Vol] 118 mg/dL 74-106 [facility] Comment on above: Fasting Glucose resu lt from 100 to 125 mg/dL suggests IMPAIRED HOMEOSTASIS per A.D.A. criteria. Potassium [Moles/Vol] 4.8 mmol/L 3.5-5.1 [facility] Protein [Mass/Vol] 6.2 g/dL 6.4-8.2 [facility] Sodium [Moles/Vol] 143 mmol/L 136-145 [facility] Triglyceride [Mass/Vol] 103 mg/dL <199 [facility] Comment on above: The drugs N-Acetylcy steine and Metamizole may falsely depress this assay.Serum Triglycerides Reference Interval Normal <150 mg/dL Borderline high 150 - 199 mg/dL High 200 - 499 mg/dL Very High > or = 500 mg/dL Laboratory - Chemistry and C hemistry - challengeOrdered By: Dr. Moise on 01-31-2023 ALP [Catalytic activity/Vol] 92 U/L 45-117 [facility] ALT [Catalytic activity/Vol] 25 U/L 13-56 [facility] CO2 [Moles/Vol] 28.0 mmol/L 21.0-32.0 [facility] Globulin (S) [Mass/Vol] 2.6 g/dL 2.2-4.2 [facility] Urea nitrogen/Creatinine [Mass ratio] 20.0 mg/mg 10-20 [facility] No Panel InformationOrdered By: Dr. Moise on 01-31-2023 Estimated GFR (MDRD) Amer 71 mL/min >60 [facility] Comment on above: GFR Calc Estimated GFR (MDRD) Non-Af Amer 58 mL/min >60 [facility] Comment on above: Non- GFR Calc Serum or plasma albumin christal urement (mass/volume)Ordered By: Dr. Moise on 01-31-2023 Albumin [Mass/Vol] 3.6 g/dL 3.2-5.0 [facility] Serum or plasma albumin/glob ulin mass ratioOrdered By: Dr. Moise on 03-17-2023 Albumin/Globulin [Mass ratio] 1.4 {ratio} 0.9-2.4 [facility] Serum or plasma calcium christal urement (mass/volume)Ordered By: Dr. Moise on 01-31-2023 Calcium [Mass/Vol] 9.2 mg/dL 8.5-10.1 [facility] Serum or plasma cholesterol in HDL measurement (mass/volume)Ordered By: Dr. Moise on 01-31-2023 Cholesterol in HDL [Mass/Vol] 51 mg/dL >40 [facility] Comment on above: The drugs N-Acetylcy steine and Metamizole may falsely depress this assay. Reference Range HDL <40 mg/dL Low HDL Cholesterol HDL >or= 60 mg/dL High HDL Cholesterol Serum or plasma cholesterol in VLDL measurement (mass/volume)Ordered By: Dr. Moise on 01-31-2023 Cholesterol in VLDL [Mass/Vol] 21 mg/dL 5-40 [facility] Serum or plasma creatinine m easurement (mass/volume)Ordered By: Dr. Moise on 01-31-2023 Creatinine [Mass/Vol] 1.00 mg/dL 0.55-1.02 [facility] Comment on above: The validity of the calculated GFR & GFRAA in patients over 70 years has not been determined. Clinical correlation is essential. Serum or plasma low density lipoprotein (LDL) cholesterol measurement (mass/volume)Ordered By: Dr. Moise on 01-31-2023 Cholesterol in LDL [Mass/Vol] 74 mg/dL 0-130 [facility] Serum or plasma urea nitroge n measurement (mass/volume)Ordered By: Dr. Moise on 01-31-2023 Urea nitrogen [Mass/Vol] 20 mg/dL 7-18 [facility] Thin prep Papanicolaou smear with manual screeningOrdered By: Dr. Moise on 01-31-2023 Thin prep Papanicolaou smear with manual screening 19 U/L 15-37 [facility] Thin prep Papanicolaou smear with manual screening 5 5-15 [facility] Absolute lymphocyte counton 07-02-2022 Lymphocytes Auto (Unsp spec) [#/Vol] 2.41 10*3/uL 0.83-4.51 [facility] Work Phone: Basophil percentageon 2021 Basophil percentage 4.6 mg/dL 2.5-4.9 [facility] Work Phone: [phone] Basophils/100 WBC (Bld) 0.3 % 0-1 [facility] Work Phone: [phone] Bilirubin [Mass/Vol] 0.20 mg/dL 0.20-1.00 [facility] Work Phone: Comment on above: For patients on eltr ombopag therapy, use of Dimension [place] TBIL is not recommended. Chloride [Moles/Vol] 113 mmol/L 98-107 [facility] Work Phone: Cholesterol [Mass/Vol] 130 mg/dL <200 [facility] Work Phone: Comment on above: <200 mg/dL Desirable 200-240 mg/dL Borderline >240 mg/dL High Risk Eosinophils/100 WBC (Bld) 1.4 % 0-5 [facility] Work Phone: Glucose [Mass/Vol] 104 mg/dL 74-106 [facility] Work Phone: Comment on above: Fasting Glucose resu lt from 100 to 125 mg/dL suggests IMPAIRED HOMEOSTASIS per A.D.A. criteria. Neutrophils (Bld) [#/Vol] 3.4 10*3/uL 2.0-7.7 [facility] Work Phone: Neutrophils/100 WBC (Bld) 52.1 % 47-70 [facility] Work Phone: [phone] Potassium [Moles/Vol] 3.9 mmol/L 3.5-5.[address] [facility] Work Phone: [phone] Protein [Mass/Vol] 5.7 g/dL 6.4-8.2 [facility] Work Phone: [phone] Sodium [Moles/Vol] 144 mmol/L 136-145 [facility] Work Phone: Triglyceride [Mass/Vol] 116 mg/dL <199 [facility] Work Phone: Comment on above: The drugs N-Acetylcy steine and Metamizole may falsely depress this assay.Serum Triglycerides Reference Interval Normal <150 mg/dL Borderline high 150 - 199 mg/dL High 200 - 499 mg/dL Very High > or = 500 mg/dL WBC (Bld) [#/Vol] 6.5 10*3/uL 4.4-11.0 [facility] Work Phone: Blood erythrocytes count (nu mber/volume)on 07-02-2022 RBC (Bld) [#/Vol] 4.17 10*6/uL 4.2-5.4 [facility] Work Phone: Blood hemoglobin measurement (mass/volume)on 07-02-2022 Hemoglobin (Bld) [Mass/Vol] 12.8 g/dL 12.0-15.0 [facility] Work Phone: Blood lymphocytes/100 leukoc yteson 07-02-2022 Lymphocytes/100 WBC (Bld) 37.0 % 19-41 [facility] Work Phone: Blood monocytes/100 leukocyt eson 07-02-2022 Monocytes/100 WBC (Bld) 8.9 % 0-10 [facility] Work Phone: Blood platelet mean volumeon 07-02-2022 Platelet mean volume (Bld) [Entitic vol] 9.3 fL 6.2-12.0 [facility] Work Phone: Determination of erythrocyte mean corpuscular volume (MCV)on 07-02-2022 MCV (RBC) [Entitic vol] 96.4 fL 81-99 [facility] Work Phone: Hematocrit Auto (Bld) [Volum e fraction]on 07-02-2022 Hematocrit (Bld) [Volume fraction] 40.2 % 37-47 [facility] Work Phone: Laboratory - Chemistry and C hemistry - challengeon 07-02-2022 ALP [Catalytic activity/Vol] 83 U/L 45-117 [facility] Work Phone: ALT [Catalytic activity/Vol] 30 U/L 13-56 [facility] Work Phone: CO2 [Moles/Vol] 26.0 mmol/L 21.0-32.0 [facility] Work Phone: Globulin (S) [Mass/Vol] 2.7 g/dL 2.2-4.2 [facility] Work Phone: Magnesium [Mass/Vol] 2.1 mg/dL 1.6-2.6 [facility] Work Phone: Urea nitrogen/Creatinine [Mass ratio] 19.2 mg/mg 10-20 [facility] Work Phone: Laboratory - Hematology and Cell countson 07-02-2022 Erythrocyte distribution width (RBC) [Entitic vol] 46.6 fL 35.1-43.9 [facility] Work Phone: Erythrocyte distribution width (RBC) [Ratio] 13.1 % 11.6-14.6 [facility] Work Phone: Immature granulocytes/100 WBC (Bld) 0.300 % 0.0-0.9 [facility] Work Phone: Comment on above: IG% - Immature Granu locytes (promyelocytes, myelocytes and metamyelocytes) > 1% indicates that a LEFT SHIFT is Present. MCH (RBC) [Entitic mass] 30.7 pg 27.0-32.0 [facility] Work Phone: Nucleated RBC/100 WBC (Bld) [Ratio] 0 % 0-5 [facility] Work Phone: MCHC Auto (RBC) [Mass/Vol]on 07-02-2022 MCHC (RBC) [Mass/Vol] 31.8 g/dL 32-36 [facility] Work Phone: No Panel Informationon 07-02 Estimated Creatinine Clearance Calc 48.95 ml/min [facility] Work Phone: Estimated GFR (MDRD) Amer 87 mL/min >60 [facility] Work Phone: Comment on above: GFR Calc Estimated GFR (MDRD) Non-Af Amer 72 mL/min >60 [facility] Work Phone: Comment on above: Non- GFR Calc Thyroid Stimulating Hormone (TSH) 2.83 uIU/mL 0.358-3.74 [facility] Work Phone: Platelets bldon 07-02-2022 Platelets (Bld) [#/Vol] 266 10*3/uL 150-450 [facility] Work Phone: Serum or plasma albumin christal urement (mass/volume)on 07-02-2022 Albumin [Mass/Vol] 3.0 g/dL 3.2-5.0 [facility] Work Phone: Serum or plasma albumin/glob ulin mass ratioon 07-02-2022 Albumin/Globulin [Mass ratio] 1.1 {ratio} 0.9-2.4 [facility] Work Phone: Serum or plasma calcium christal urement (mass/volume)on 07-02-2022 Calcium [Mass/Vol] 8.5 mg/dL 8.5-10.1 [facility] Work Phone: Serum or plasma cholesterol in HDL measurement (mass/volume)on 07-02-2022 Cholesterol in HDL [Mass/Vol] 41 mg/dL >40 [facility] Work Phone: Comment on above: The drugs N-Acetylcy steine and Metamizole may falsely depress this assay. Reference Range HDL <40 mg/dL Low HDL Cholesterol HDL >or= 60 mg/dL High HDL Cholesterol Serum or plasma cholesterol in VLDL measurement (mass/volume)on 07-02-2022 Cholesterol in VLDL [Mass/Vol] 23 mg/dL 5-40 [facility] Work Phone: Serum or plasma creatinine m easurement (mass/volume)on 07-02-2022 Creatinine [Mass/Vol] 0.83 mg/dL 0.55-1.02 [facility] Work Phone: Comment on above: The validity of the calculated GFR & GFRAA in patients over 70 years has not been determined. Clinical correlation is essential. Serum or plasma low density lipoprotein (LDL) cholesterol measurement (mass/volume)on 07-02-2022 Cholesterol in LDL [Mass/Vol] 66 mg/dL 0-130 [facility] Work Phone: Serum or plasma urea nitroge n measurement (mass/volume)on 07-02-2022 Urea nitrogen [Mass/Vol] 16 mg/dL 7-18 [facility] Work Phone: Thin prep Papanicolaou smear with manual screeningon 07-02-2022 Thin prep Papanicolaou smear with manual screening 16 U/L 15-37 [facility] Work Phone: Thin prep Papanicolaou smear with manual screening 5 5-15 [facility] Work Phone: Whole blood hemoglobin A1c/t otal hemoglobin ratio (mass fraction)on 07-02-2022 HbA1c (Bld) [Mass fraction] 6.2 % 3.8-5.6 [facility] Work Phone: Comment on above: Normal < 5.7 % Predi abetic 5.7 - 6.4 % Diabetic >or= 6.5 % Please note range changes. Absolute lymphocyte counton 07-01-2022 Lymphocytes Auto (Unsp spec) [#/Vol] 2.15 10*3/uL 0.83-4.51 [facility] Work Phone: Basophil percentageon 2021 Basophils/100 WBC (Bld) 0.2 % 0-1 [facility] Work Phone: Chloride [Moles/Vol] 112 mmol/L 98-107 [facility] Work Phone: Eosinophils/100 WBC (Bld) 0.9 % 0-5 [facility] Work Phone: Glucose [Mass/Vol] 114 mg/dL 74-106 [facility] Work Phone: Comment on above: Fasting Glucose resu lt from 100 to 125 mg/dL suggests IMPAIRED HOMEOSTASIS per A.D.A. criteria. Neutrophils (Bld) [#/Vol] 5.2 10*3/uL 2.0-7.7 [facility] Work Phone: Neutrophils/100 WBC (Bld) 63.8 % 47-70 [facility] Work Phone: Potassium [Moles/Vol] 3.9 mmol/L 3.5-5.1 [facility] Work Phone: Sodium [Moles/Vol] 143 mmol/L 136-145 [facility] Work Phone: WBC (Bld) [#/Vol] 8.1 10*3/uL 4.4-11.0 [facility] Work Phone: Blood erythrocytes count (nu mber/volume)on 07-01-2022 RBC (Bld) [#/Vol] 4.41 10*6/uL 4.2-5.4 [facility] Work Phone: Blood hemoglobin measurement (mass/volume)on 07-01-2022 Hemoglobin (Bld) [Mass/Vol] 13.7 g/dL 12.0-15.0 [facility] Work Phone: Blood lymphocytes/100 leukoc yteson 07-01-2022 Lymphocytes/100 WBC (Bld) 26.6 % 19-41 [facility] Work Phone: [phone] Blood monocytes/100 leukocyt eson 07-01-2022 Monocytes/100 WBC (Bld) 8.3 % 0-10 [facility] Work Phone: Blood platelet mean volumeon 07-01-2022 Platelet mean volume (Bld) [Entitic vol] 9.2 fL 6.2-12.0 [facility] Work Phone: Determination of erythrocyte mean corpuscular volume (MCV)on 07-01-2022 MCV (RBC) [Entitic vol] 95.0 fL 81-99 [facility] Work Phone: Glucose Glucometer (BldC) [M ass/Vol]on 07-01-2022 Glucose [Mass/Vol] 117 mg/dL 74-106 [facility] Work Phone: Comment on above: MANAGEMENT OF PATIEN T CARE PER NURSING PROTOCOL Hematocrit Auto (Bld) [Volum e fraction]on 07-01-2022 Hematocrit (Bld) [Volume fraction] 41.9 % 37-47 [facility] Work Phone: INR in Blood by Coagulation assayon 07-01-2022 INR Coag (Bld) [Relative time] 1.0 {INR} [facility] Work Phone: Laboratory - Chemistry and C hemistry - challengeon 07-01-2022 CO2 [Moles/Vol] 27.0 mmol/L 21.0-32.0 [facility] Work Phone: Urea nitrogen/Creatinine [Mass ratio] 21.0 mg/mg 10-20 [facility] Work Phone: Laboratory - Coagulationon 0 07-01-2022 aPTT Coag (Bld) [Time] 23.9 s 24.1-36.2 [facility] Work Phone: PT Coag (PPP) [Time] 12.4 s 11.7-14.9 [facility] Work Phone: Laboratory - Hematology and Cell countson 07-01-2022 Erythrocyte distribution width (RBC) [Entitic vol] 45.6 fL 35.1-43.9 [facility] Work Phone: Erythrocyte distribution width (RBC) [Ratio] 13.0 % 11.6-14.6 [facility] Work Phone: [phone] Immature granulocytes/100 WBC (Bld) 0.200 % 0.0-0.9 [facility] Work Phone: Comment on above: IG% - Immature Granu locytes (promyelocytes, myelocytes and metamyelocytes) > 1% indicates that a LEFT SHIFT is Present. MCH (RBC) [Entitic mass] 31.1 pg 27.0-32.0 [facility] Work Phone: Nucleated RBC/100 WBC (Bld) [Ratio] 0 % 0-5 [facility] Work Phone: YARIEL SCREENING W TOMOon 07-01 [facility] MCHC Auto (RBC) [Mass/Vol]on 07-01-2022 MCHC (RBC) [Mass/Vol] 32.7 g/dL 32-36 [facility] Work Phone: No Panel Informationon 07-01 Estimated Creatinine Clearance Calc 27.68 ml/min [facility] Work Phone: Estimated GFR (MDRD) Amer 97 mL/min >60 [facility] Work Phone: Comment on above: GFR Calc Estimated GFR (MDRD) Non-Af Amer 80 mL/min >60 [facility] Work Phone: Comment on above: Non- GFR Calc Troponin I High Sensitivity 6 pg/mL 3.0-54.0 [facility] Work Phone: Comment on above: Please Note: New Debra t Units and Gender Specific Reference Ranges. For more information see Policy Stat Procedure [place] High Sensitivity Troponin (TNIH) and attachments. Platelets bldon 07-01-2022 Platelets (Bld) [#/Vol] 293 10*3/uL 150-450 [facility] Work Phone: Serum or plasma calcium christal urement (mass/volume)on 07-01-2022 Calcium [Mass/Vol] 8.8 mg/dL 8.5-10.1 [facility] Work Phone: Serum or plasma creatinine m easurement (mass/volume)on 07-01-2022 Creatinine [Mass/Vol] 0.76 mg/dL 0.55-1.02 [facility] Work Phone: Comment on above: The validity of the calculated GFR & GFRAA in patients over 70 years has not been determined. Clinical correlation is essential. Serum or plasma urea nitroge n measurement (mass/volume)on 07-01-2022 Urea nitrogen [Mass/Vol] 16 mg/dL 7-18 [facility] Work Phone: Thin prep Papanicolaou smear with manual screeningon 07-01-2022 Thin prep Papanicolaou smear with manual screening 4 5-15 [facility] Work Phone: Basophil percentageon 2021 Chloride [Moles/Vol] 112 mmol/L 98-107 [facility] Work Phone: Cholesterol [Mass/Vol] 225 mg/dL <200 [facility] Work Phone: Comment on above: <200 mg/dL Desirable 200-240 mg/dL Borderline >240 mg/dL High Risk Glucose [Mass/Vol] 124 mg/dL 74-106 [facility] Work Phone: Comment on above: Fasting Glucose resu lt from 100 to 125 mg/dL suggests IMPAIRED HOMEOSTASIS per A.D.A. criteria. Potassium [Moles/Vol] 4.0 mmol/L 3.5-5.1 [facility] Work Phone: Sodium [Moles/Vol] 142 mmol/L 136-145 [facility] Work Phone: Triglyceride [Mass/Vol] 123 mg/dL [facility] Work Phone: Comment on above: The drugs N-Acetylcy steine and Metamizole may falsely depress this assay.Serum Triglycerides Reference Interval Normal <150 mg/dL Borderline high 150 - 199 mg/dL High 200 - 499 mg/dL Very High > or = 500 mg/dL Laboratory - Chemistry and C hemistry - challengeon 02-04-2022 CO2 [Moles/Vol] 25.0 mmol/L 21.0-32.0 [facility] Work Phone: Urea nitrogen/Creatinine [Mass ratio] 17.6 mg/mg 10-20 [facility] Work Phone: No Panel Informationon 02-04 Estimated GFR (MDRD) Amer 85 mL/min >60 [facility] Work Phone: Comment on above: GFR Calc Estimated GFR (MDRD) Non-Af Amer 71 mL/min >60 [facility] Work Phone: Comment on above: Non- GFR Calc Thyroid Stimulating Hormone (TSH) 3.10 uIU/mL 0.358-3.74 [facility] Work Phone: Serum or plasma calcium christal urement (mass/volume)on 02-04-2022 Calcium [Mass/Vol] 8.9 mg/dL 8.5-10.1 [facility] Work Phone: Serum or plasma cholesterol in HDL measurement (mass/volume)on 02-04-2022 Cholesterol in HDL [Mass/Vol] 49 mg/dL [facility] Work Phone: Comment on above: The drugs N-Acetylcy steine and Metamizole may falsely depress this assay. Reference Range HDL <40 mg/dL Low HDL Cholesterol HDL >or= 60 mg/dL High HDL Cholesterol Serum or plasma cholesterol in VLDL measurement (mass/volume)on 02-04-2022 Cholesterol in VLDL [Mass/Vol] 25 mg/dL 5-40 [facility] Work Phone: Serum or plasma creatinine m easurement (mass/volume)on 02-04-2022 Creatinine [Mass/Vol] 0.85 mg/dL 0.55-1.02 [facility] Work Phone: Comment on above: The validity of the calculated GFR & GFRAA in patients over 70 years has not been determined. Clinical correlation is essential. Serum or plasma low density lipoprotein (LDL) cholesterol measurement (mass/volume)on 02-04-2022 Cholesterol in LDL [Mass/Vol] 151 mg/dL 0-130 [facility] Work Phone: Serum or plasma urea nitroge n measurement (mass/volume)on 02-04-2022 Urea nitrogen [Mass/Vol] 15 mg/dL 7-18 [facility] Work Phone: Thin prep Papanicolaou smear with manual screeningon 02-04-2022 Thin prep Papanicolaou smear with manual screening 5 -15 [facility] Work Phone: No Panel Informationon 02-21 IMPRESSION: No radiographic evidence of acute osseous injury. Car Repossessor: REX Transcribe Date/Time: Feb 21 2021 2:17P Dictated by : ANITA SCHULTZ MD This examination was interpreted and the report reviewed and electronically signed by: ANITA SCHULTZ MD on Feb 21 2021 2:28PM [facility] DIVISION OF RADIOLOGY Radiology Study observation (narrative) [facility] No Panel InformationOrdered By: [facility] Provider on 02-21-2021 [facility] XR Ankle - right AP and Late [...] joint degenerative changes. [facility] * * [...] No radiographic evidence of acute osseous injury. Car Repossessor: [facility]PITALCaroline Transcribe Date/Time: Feb 21 2021 2:17P Dictated by : ANITA SCHULTZ MD This examination was interpreted and the report reviewed and electronically signed by: ANITA SCHULTZ MD on Feb 21 2021 2:28PM EST [facility] XR Foot - right AP and Later [...] joint degenerative changes. DIVISION OF RADIOLOGY Provider, [facility] - 02/21/2021 * * *Final Report* * [...] No radiographic evidence of acute osseous injury. Car Repossessor: REX Transcribe Date/Time: Feb 21 2021 2:17P Dictated by : ANITA SCHULTZ MD This examination was interpreted and the report reviewed and electronically signed by: ANITA SCHULTZ MD on Feb 21 2021 2:28PM EST [facility] Final Surgical Pathology Rep [facility] 10-06-2018 Final Surgical Pathology Report . Pathology ReportsAccession: Collected Date/Time: Received Date/Time: Pathologist:[id number] 23 10/02/2018 14:15 EST 10/05/2018 14:15 DO CYNTHIA CASTRO Final Surgical Pathology ReportDIAGNOSIS:SERRATE D POLYP, TRANSVERSE COLON.CLINICAL INFORMATION:SCREENINGSP ECIMEN:A TRANSVERSE COLON POLYPGROSS DESCRIPTION:Received in formalin labeled transverse colon polyp is a 0.6 cm pale villatoro soft tissue fragment and a moderate amount of debris. TS -1Dictated by Anitra BARCENAS ([facility])MICROSCOPIC DESCRIPTION:Slides reviewed.Electronically Signed byPathology Report verified by [facility] FoundationElectronically signed by CYNTHIA CARTER DOSign out Date: 10/06/2018 13:57Performing Lab: [facility], [address] [place] [address] ([place]) Comment on above: Performed By: #### S PFR ####[place] [address] Vital Signs Date Time Vital Sign Value Performing Clinician Facility 07-04-2022 10:02-0400 Body height 153.3 cm Petar Alexander APRN.DIRECTOR OF COMMUNICATIONS Work Phone: [facility] 07-04-2022 10:02-0400 Body temperature 98.71 [degF] Petar Alexander APRN.CNP Work Phone: [facility] 07-04-2022 10:02-0400 Body weight 70.31 kg Petar Alexander COSMETICS COUNTER MANAGER.DIRECTOR OF COMMUNICATIONS Work Phone: [facility] 07-04-2022 10:02-0400 Diastolic blood pressure 93 mm[Hg] Petar Alexander COSMETICS COUNTER MANAGER.DIRECTOR OF COMMUNICATIONS Work Phone: [facility] 07-04-2022 10:02-0400 Heart rate 80 /min Petar Alexander COSMETICS COUNTER MANAGER.DIRECTOR OF COMMUNICATIONS Work Phone: [facility] 07-04-2022 10:02-0400 SaO2% (BldA) [Mass fraction] 96 % Petar Alexander COSMETICS COUNTER MANAGER.DIRECTOR OF COMMUNICATIONS Work Phone: [facility] 07-04-2022 10:02-0400 Systolic blood pressure 139 mm[Hg] Petar Alexander COSMETICS COUNTER MANAGER.DIRECTOR OF COMMUNICATIONS Work Phone: [facility] 07-02-2022 16:27-0400 Body mass index (BMI) [Ratio] 29 kg/m2 Dr. Tavares Moise Work Phone: [facility] Work Phone: 07-02-2022 15:00-0400 Body temperature 98.1 [degF] Dr. Tavares Moise Work Phone: [facility] Work Phone: 07-02-2022 15:00-0400 Diastolic blood pressure 70 mm[Hg] Dr. Tavares Moise Work Phone: [facility] Work Phone: 07-02-2022 15:00-0400 Heart rate 72 /min Dr. Tavares Moise Work Phone: [facility] Work Phone: 07-02-2022 15:00-0400 Respiratory rate 18 /min Dr. Tavares Moise Work Phone: [facility] Work Phone: 07-02-2022 15:00-0400 SaO2% (BldA) [Mass fraction] 98 % Dr. Tavares Moise Work Phone: [facility] Work Phone: 07-02-2022 15:00-0400 Systolic blood pressure 144 mm[Hg] Dr. Tavares Moise Work Phone: [facility] Work Phone: 07-01-2022 18:36-0400 Body height 154.[address] Tavares Moise Work Phone: [facility] Work Phone: 07-01-2022 18:36-0400 Body weight 69.[address] Tavares Moise Work Phone: [facility] Work Phone: 07-01-2022 18:13-0400 Body temperature 98 [degF] Dr. Tavares Moise Work Phone: [facility] Work Phone: 07-01-2022 18:13-0400 Diastolic blood pressure 96 mm[Hg] Dr. Tavares Moise Work Phone: [facility] Work Phone: 07-01-2022 18:13-0400 Heart rate 70 /min Dr. Tavares Moise Work Phone: [facility] Work Phone: 07-01-2022 18:13-0400 Respiratory rate 18 /min Dr. Tavares Moise Work Phone: [facility] Work Phone: 07-01-2022 18:13-0400 SaO2% (BldA) [Mass fraction] 95 % Dr. Tavares Moise Work Phone: [facility] Work Phone: 07-01-2022 18:13-0400 Systolic blood pressure 141 mm[Hg] Dr. Tavares Moise Work Phone: [facility] Work Phone: 07-01-2022 15:54-0400 Body height 152.[address] Tavares Moise Work Phone: [facility] Work Phone: 07-01-2022 15:54-0400 Body mass index (BMI) [Ratio] 14 kg/m2 Dr. Tavares Moise Work Phone: [facility] Work Phone: 07-01-2022 15:54-0400 Body weight 32.[address] Tavares Moise Work Phone: [facility] Work Phone: Encounters Encounter Date Encounter Type Care Provider Facility Start: 10-12-2024 End: 10-12-2024 ambulatory Lg Varma Facility:[facility] Start: 09-09-2024 End: 09-09-2024 ambulatory [facility] Facility:[facility] Start: 08-27-2024 End: 08-27-2024 Chart abstracting Tavares Dupree DO Work Phone: Hematology/Oncology Start: 08-10-2024 End: 08-10-2024 Telephone encounter Petar Alexander APRN.DIRECTOR OF COMMUNICATIONS Work Phone: Hematology/Oncology Comment on above: Patient Question Start: 08-02-2024 End: 08-02-2024 ambulatory [facility] Facility:[facility] Start: 08-08-2023 End: 08-08-2023 ambulatory [facility] Work Phone: Start: 08-08-2023 End: 08-08-2023 Patient encounter procedure [facility] Start: 01-31-2023 End: 01-31-2023 ambulatory [facility] Work Phone: Start: 01-31-2023 End: 01-31-2023 Patient encounter procedure [facility] Start: 07-04-2022 End: 07-04-2022 ambulatory Petar Alexander APRN.DIRECTOR OF COMMUNICATIONS Work Phone: Hematology/Oncology Comment on above: Personal history of malignant neoplasm of breast (Primary Dx) Start: 07-04-2022 End: 07-04-2022 Patient encounter procedure Petar Alexander COSMETICS COUNTER MANAGER.DIRECTOR OF COMMUNICATIONS Work Phone: [facility] Start: 07-02-2022 Non-patient / Non-visit Dr. Panda Moise Work Phone: [facility] Start: 07-02-2022 Non-patient / Non-visit Dr. Panda Moise Work Phone: [facility] Start: 07-01-2022 Non-patient / Non-visit Dr. Panda Moise Work Phone: [facility] Start: 07-01-2022 End: 07-02-2022 Evaluation and management of inpatient Dr. Tavares Moise Work Phone: [facility] Start: 07-01-2022 End: 07-01-2022 Subsequent hospital visit by physician Screen Mammo [facility] Mammogram Comment on above: Personal history of malignant neoplasm of breast [Z85.3] Start: 05-12-2022 Refill Petar Carpente r COSMETICS COUNTER MANAGER.DIRECTOR OF COMMUNICATIONS Work Phone: Hematology/Oncology Comment on above: Refill Request Start: 03-05-2022 Refill [place] Carpente r COSMETICS COUNTER MANAGER.DIRECTOR OF COMMUNICATIONS Work Phone: Hematology/Oncology Comment on above: Refill Request; Refi ll Request Start: 02-13-2022 End: 02-13-2022 Patient encounter procedure [facility] Start: 02-04-2022 End: 02-04-2022 Patient encounter procedure [facility] Start: 02-21-2021 End: 02-21-2021 Subsequent hospital visit by physician [facility] Work Phone: Radiology Comment on above: Acute right ankle pa in [M25.571] Start: 10-02-2018 End: 10-07-2018 Patient encounter procedure JESÚS HAYS Facility:A Procedures Date Procedure Procedure Detail Performing Clinician Start: 07-01-2022 MRI of brain without contrast Dr. Tavares Moise Work Phone: Start: 07-01-2022 Plain chest X-ray Dr. Rosa Moise Work Phone: Start: 07-01-2022 CT angiography of he ad and neck Dr. Tavares Moise Work Phone: Start: 07-01-2022 CT of head without contrast Dr. Tavares Moise Work Phone: Start: 07-01-2022 YARIEL SCREENING W SALINAS Da brina Alexander COSMETICS COUNTER MANAGER.DIRECTOR OF COMMUNICATIONS Work Phone: Start: 07-01-2022 Mammography Screen Wst r Start: 06-29-2021 Mammography Petar michael COSMETICS COUNTER MANAGER.DIRECTOR OF COMMUNICATIONS Work Phone: Start: 02-21-2021 Radex ankle complete minimum 3 views Cecil Chatal COSMETICS COUNTER MANAGER.DIRECTOR OF COMMUNICATIONS Work Phone: Start: 06-18-2019 Adult depression screening assessment Petar Alexander COSMETICS COUNTER MANAGER.DIRECTOR OF COMMUNICATIONS Work Phone: Start: 06-25-2014 Lipid 1996 panel - S derrick or Plasma Petar Alexander COSMETICS COUNTER MANAGER.DIRECTOR OF COMMUNICATIONS Work Phone: Start: 11-17-2012 Colonoscopy Petar michael COSMETICS COUNTER MANAGER.DIRECTOR OF COMMUNICATIONS Work Phone: H/O: surgery History of lumpe ctomy of right breast Dr. Tavares Moise Work Phone: Plan of Treatment Date Care Activity Detail Author Start: 2028 RSV Vaccine (1 - 1-dose 75+ series) RSV Vaccine (1 - 1-dose 75+ series) [facility] Start: 07-18-2024 Covid-19 Vaccine ( season) Covid-19 Vaccine ( season) [facility] Start: 07-18-2024 Influenza vaccination Influenza Vaccine (#1) [facility] Start: 11-17-2023 Advance Directive Discussion Advance Directive Discussion [facility] Start: 09-11-2023 Pneumococcal Vaccine: 65+ (3 of 3 - PPSV23 or PCV20) Pneumococcal Vaccine: 65+ (3 of 3 - PPSV23 or PCV20) [facility] Start: 07-01-2023 Mammography MAMMOGRAM [facility] Start: 07-01-2023 Screening for malignant neoplasm of breast Mammogram Screening [facility] Start: 07-18-2022 Influenza vaccination [facility] Start: 07-02-2022 Patient discharge [facility] Work Phone: Start: 07-02-2022 US Heart [facility] Work Phone: Start: 07-01-2022 Application of intermittent pneumatic compression device [facility] Work Phone: Start: 07-01-2022 Assessment of risk of venous thromboembolism [facility] Work Phone: Start: 07-01-2022 Cardiac monitoring [facility] Work Phone: Start: 07-01-2022 Catheterization of vein [facility] Work Phone: Start: 07-01-2022 Elevation of head of bed [facility] Work Phone: Start: 07-01-2022 Exercises [facility] Work Phone: Start: 07-01-2022 Implementation of planned interventions [facility] Work Phone: Start: 07-01-2022 Incentive spirometry [facility] Work Phone: Start: 07-01-2022 Insertion of catheter into peripheral vein [facility] Work Phone: Start: 07-01-2022 Measuring intake and output [facility] Work Phone: Start: 07-01-2022 Notification of physician [facility] Work Phone: Start: 07-01-2022 Oxygen therapy [facility] Work Phone: Start: 07-01-2022 Providing care according to standard [facility] Work Phone: Start: 07-01-2022 Provision of activity privileges [facility] Work Phone: Start: 07-01-2022 Referral to occupational therapist [facility] Work Phone: Start: 07-01-2022 Referral to service [facility] Work Phone: Start: 07-01-2022 Speech therapy assessment [facility] Work Phone: Start: 07-01-2022 Tobacco use cessation education [facility] Work Phone: Start: 07-01-2022 [facility] Work Phone: Start: 07-01-2022 Following clinical pathway protocol [facility] Work Phone: Start: 07-01-2022 MR Brain WO contrast [facility] Work Phone: Start: 07-01-2022 MRI of brain without contrast Brain without Contrast [facility] Work Phone: Start: 07-01-2022 Verification routine [facility] Work Phone: Start: 07-01-2022 Admission procedure [facility] Work Phone: Start: 07-01-2022 Oxygen therapy [facility] Work Phone: Start: 07-01-2022 [facility] Work Phone: Start: 06-29-2022 Mammography MAMMOGRAM [facility] Start: 02-20-2022 COVID-19 VACCINE (4 - Booster for Moderna series) COVID-19 VACCINE (4 - Booster for Moderna series) [facility] Start: 01-14-2022 COVID-19 VACCINE (4 - Booster for Moderna series) COVID-19 VACCINE (4 - Booster for Moderna series) [facility] Start: 11-17-2021 ADVANCE DIRECTIVE DISCUSSION ADVANCE DIRECTIVE DISCUSSION [facility] Start: 11-01-2021 PNEUMOVAX AGE 65 AND OVER WITH 5YR LOOKBACK (#1) PNEUMOVAX AGE 65 AND OVER WITH 5YR LOOKBACK (#1) [facility] Start: 03-21-2021 COVID-19 VACCINE (3 - Moderna risk series) COVID-19 VACCINE (3 - Moderna risk series) [facility] Start: 06-18-2020 Adult depression screening assessment DEPRESSION SCREENING [facility] Start: 11-17-2019 Urine microalbumin profile [facility] Start: 06-25-2019 Lipid panel Lipid Screening [facility] Start: 06-25-2019 LIPID SCREEN LIPID SCREEN [facility] Start: 2018 PNEUMOCOCCAL: 65+ (1 - PCV) PNEUMOCOCCAL: 65+ (1 - PCV) [facility] Start: 11-01-2017 PNEUMOCOCCAL: 65+ (2 - PCV) PNEUMOCOCCAL: 65+ (2 - PCV) [facility] Start: 05-26-2017 DIABETES SCREEN DIABETES SCREEN [facility] Start: 05-26-2017 Diabetes Screening Diabetes Screening [facility] Start: 11-17-2013 Colonoscopy COLONOSCOPY [facility] Start: 11-17-2013 COLORECTAL CANCER SCREENING COLORECTAL CANCER SCREENING [facility] Start: 11-17-2013 Screening for malignant neoplasm of colon [facility] Start: 2003 SHINGRIX VACCINE (1 of 2) SHINGRIX VACCINE (1 of 2) [facility] Start: 1998 COLOGUARD (FIT-DNA) COLOGUARD (FIT-DNA) [facility] Start: [address] COLONOGRAPHY [facility] Start: 1998 FECAL OCCULT BLOOD FECAL OCCULT BLOOD [facility] Start: 1998 Screening for malignant neoplasm of colon [facility] Start: 1998 SIGMOIDOSCOPY SIGMOIDOSCOPY [facility] Start: 1972 SHINGRIX VACCINE (1 of 2) SHINGRIX VACCINE (1 of 2) [facility] Start: 1971 Anxiety Screening Anxiety Screening [facility] Start: 1971 Depression Screening Depression Screening [facility] Patient referral [facility] Work Phone: [facility] Immunizations Immunization Date Immunization Notes Care Provider Celia santos 08-26-2024 pneumococcal conjuga te (PCV20) vaccine, 20 valent (PREVNAR 20) Tavares Dupree DO Work Phone: [facility] 08-26-2024 Seasonal trivalent influenza vaccine, adjuvanted, preservative free Tavares Dupree DO Work Phone: [facility] 02-21-2021 COVID-19 vaccine, fu ll dose (MODERNA) Petar Alexander APRN.DIRECTOR OF COMMUNICATIONS Work Phone: [facility] 01-24-2021 COVID-19 vaccine, fu ll dose (MODERNA) Petar Alexander COSMETICS COUNTER MANAGER.DIRECTOR OF COMMUNICATIONS Work Phone: [facility] 08-09-2019 influenza virus vacc ine, unspecified formulation Petar Alexander COSMETICS COUNTER MANAGER.DIRECTOR OF COMMUNICATIONS Work Phone: [facility] 11-01-2016 pneumococcal polysaccharide vaccine, 23 valent Petar Stubbsenter COSMETICS COUNTER MANAGER.DIRECTOR OF COMMUNICATIONS Work Phone: [facility] Work Phone: 08-24-2015 influenza, seasonal, injectable Petar Alexander COSMETICS COUNTER MANAGER.DIRECTOR OF COMMUNICATIONS Work Phone: [facility] 11-17-2009 tetanus toxoid, redu padilla diphtheria toxoid, and acellular pertussis vaccine, adsorbed Petar Alexander COSMETICS COUNTER MANAGER.DIRECTOR OF COMMUNICATIONS Work Phone: [facility] Payers Date Payer Category Payer Medicare [id number] 2024 Self-pay [id number] 2024 Unknown [id number] 2019 Unknown [employer] PPO [id number] 2019-Present [phone] [place] [address] PPO [id number] 2019 Unknown [id number] 2017 Unknown [id number] 1955 Unknown [id number] Unknown [id number] Unknown [id number] Unknown [id number] Unknown [id number] Social History Date Type Detail Facility Start: 10-25-2017 End: 07-02-2022 Tobacco smoking status MOIS Unknown if ever smoked [facility] Start: 1955 Sex Assigned At Female W [facility] Start: 06-15-2015 Tobacco smoking stat us MOIS Ex-smoker [facility] Start: 11-17-1979 End: 11-17-1999 History of tobacco use Current smoker [facility] Start: 11-17-1979 End: 11-17-1999 History of tobacco use Cigarette Smoker [facility] Start: 07-05-2021 End: 07-04-2022 Alcohol intake Current drinker of alcohol (finding) [facility] Start: 1955 Sex Assigned At Not on file [facility] Start: 06-15-2015 End: 12-14-2022 Cigarettes smoked current (pack per day) - Reported 0.5 [facility] Start: 06-15-2015 Tobacco use and exposure Smokeless tobacco non-user [facility] Start: 01-22-2021 End: 07-01-2022 Exposure to SARS-CoV-2 (event) Not sure [facility] Start: 07-04-2022 End: 12-14-2022 Tobacco use panel [facility] Adult Depression Screening Assessment 0 [facility] Functional Status Date Assessment Result Facility 07-02-2022 Functional status Ambulates [facility] Work Phone: 07-02-2022 Functional status Tolerates Activity Well [facility] Work Phone: Mental Status Date Assessment Result Facility 07-02-2022 Cognitive function Voice/Name [facility] Work Phone: 07-01-2022 Cognitive function Appropriate;Sid michaels [facility] Work Phone: Clinical Notes 02-21-2021 to 08-10-2024 Telephone Encounter [...] will contact her PCP. Tammi Blackburn RN [facility] 08-10-2024 Miscellaneous Notes Patients last OV was [...] Petar. Please advise. documented in this encounter [facility] 08-10-2024 Telephone encounter Note Patient called to confirm that she no longer needs to have mammogram. She believes this was discussed last office visit with Petar. Please advise. [facility] Work Phone: 07-04-2022 History of Presen t [...] PCP next week for hospital discharge visit. Appetite:No problems there. Energy level:Good. Denies fevers or recent illness. Resp:denies cough or sob Cardiac:denies chest pain/palpitations GI:denies abd pain, n/v, moving bowels regularly :denies dysuria/hematuria Extrem:denies pain Endo:denies hot flashes Neuro:denies symptoms of neuropathy Skin:denies rashes/lesions Heme:denies bleeding The ROS is otherwise negative. Past medical history, appointments, medications, allergies reviewed. No changes. 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 Petar Alexander APRN.CNP documented in this encounter [facility] 07-01-2022 History of Presen t illness Narrative [...] IV DATA: Not applicable SIGNED BY: RT Sheri(R) July 01, 2022 10:12 AM documented in this encounter [facility] 05-13-2022 Miscellaneous Notes Patient notified. Elizabeth Del [...] Sandi Hanks LPN documented in this encounter [facility] 03-05-2022 Miscellaneous Notes Patient has been identified [...] SHERIN: No Please review and advise. Angie Franz Pss documented in this encounter [facility] 02-21-2021 History of Presen t illness Narrative [...] 2021 2:16 PM documented in this encounter [facility] Evaluation note No assessment inform ation available [facility] Work Phone: Evaluation note Diagnosis Personal history of malignant neoplasm of breast Encounter for screening mammogram for high-risk patient [facility] Diagnosis Onset Date Resolution Status Brain TIA acute [facility] Work Phone: Evaluation note* Diagnosis Personal history of malignant neoplasm of breast- Primary [facility] Diagnosis Acute right ankle pain Foot pain, right Pain in limb [facility] Work Phone: Reason for referral (narrative)* Diagnostic Procedure Only (Routine) - Closed Specialty Diagnoses / Procedures Referred By Zoë weiner Referred To Contact [facility] Diagnoses Personal history of malignant neoplasm of breast Encounter for screening mammogram for high-risk patient Procedures YARIEL SCREENING W SALINAS SCREENING BREAST DGTL SALINAS UNI/BILAT ADD ON SCREENING MAMMOGRAPHY BI 2-VIEW BREAST INC Petar Medrano APRN.DIRECTOR OF COMMUNICATIONS [address] [place] [address] [facility] [address] [place] [address] Referral ID Status Reason Start Date Expiration Date V isits Requested Visits Authorized Closed Auto-Generate d Referral 07/01/2022 11/16/2022 1 1 [facility] for visit Narrative* Diagnostic Procedure Only (Routine) - Closed Specialty Diagnoses / Procedures Referred By Contac t Referred To Contact [facility] Diagnoses Personal history of malignant neoplasm of breast Encounter for screening mammogram for high-risk patient Procedures YARIEL SCREENING W SALINAS SCREENING BREAST DGTL SALINAS UNI/BILAT ADD ON SCREENING MAMMOGRAPHY BI 2-VIEW BREAST INC Petar Medrano APRN.DIRECTOR OF COMMUNICATIONS [address] [place] [address] [facility] [address] [place] [address] Referral ID Status Reason Start Date Expiration Date V isits Requested Visits Authorized Closed Auto-Generate d Referral 07/01/2022 11/16/2022 1 1 [facility] Summary Purpose Family History No Family History Records Found Relationship Condition Age at Onset Recorded Date/T peter sister Disorder of thyroid Unknown mother Disorder of thyroid Unknown Advance Directives No Advanced Directives Records Found Advance Directive Response Recorded Date/ Time Living Will No October 25 1:21pm Power of Technical Business Analyst No October 25, 2017 1:21pm Advance Directive Response Recorded Date/ Time Living Will No July 01 6:40pm Power of Technical Business Analyst No July 01 022 6:40pm Chief Complaint and Reason for Visit Chief Complaint TIA TIA (cardiology) Reason for Visit Brain TIA Chief Complaint TIA TIA (cardiology) TIA (cardiology) Reason for Visit Brain TIA Additional Source Comments INFORMATION SOURCE (unrecogn ized section and content) DATE CREATED AUTHOR 10/26/2018 [employer] ([place]) DATE CREATED AUTHOR AUTHOR'S ORGANIZ ATION 08/13/2024 [facility] DATE CREATED AUTHOR AUTHOR'S ORGANIZ ATION 11/10/2024 [facility] Goals (unrecognized section and content) Goals may be documented in a n alternate sectionGoals may be documented in an alternate sectionGoals may be documented in an alternate sectionGoals may be documented in an alternate sectionGoals may be documented in an alternate sectionGoals may be documented in an alternate section Source Comments (unrecognize d section and content) In the event this informatio n is protected by the Federal Confidentiality of Alcohol and Drug Abuse Patient Records regulations: The Federal rules restrict any use of the information to criminally investigate or prosecute any alcohol or drug abuse patient.[facility] the event this information is protected by the Federal Confidentiality of Alcohol and Drug Abuse Patient Records regulations: The Federal rules restrict any use of the information to criminally investigate or prosecute any alcohol or drug abuse patient.[facility] the event this information is protected by the Federal Confidentiality of Alcohol and Drug Abuse Patient Records regulations: The Federal rules restrict any use of the information to criminally investigate or prosecute any alcohol or drug abuse patient.[facility] the event this information is protected by the Federal Confidentiality of Alcohol and Drug Abuse Patient Records regulations: The Federal rules restrict any use of the information to criminally investigate or prosecute any alcohol or drug abuse patient.[facility] the event this information is protected by the Federal Confidentiality of Alcohol and Drug Abuse Patient Records regulations: The Federal rules restrict any use of the information to criminally investigate or prosecute any alcohol or drug abuse patient.[facility] the event this information is protected by the Federal Confidentiality of Alcohol and Drug Abuse Patient Records regulations: The Federal rules restrict any use of the information to criminally investigate or prosecute any alcohol or drug abuse patient.[facility] the event this information is protected by the Federal Confidentiality of Alcohol and Drug Abuse Patient Records regulations: The Federal rules restrict any use of the information to criminally investigate or prosecute any alcohol or drug abuse patient.[facility] Reason for Visit (unrecogniz ed section and content) Reason Onset Date Comments Refill Request 03/05/2022 Refill Request 04/04/2022 Reason Comments Refill Request Reason Comments Established Patient Specialty Diagnoses / Procedures Referred By Contac t Referred To Contact Hematology/Oncology / HEMATOLOGY/ONCOLOGY Diagnoses Personal history of malignant neoplasm of breast 1 YR OV/MAMM 07/01/22* Procedures OFFICE/OUTPATIENT ESTABLISHED MOD [facility] 30-39 MIN MD Benjamin Manjarrez Darby, COSMETICS COUNTER MANAGER.DIRECTOR OF COMMUNICATIONS [address] [place] [address] Referral ID Status Reason Start Date Expiration Date Visits Re quested Visits Authorized [id number] Closed 07/04/2022 11/16/2022 1 1 Reason Comments Patient Question Specialty Diagnoses / Procedures Referred By Contac t Referred To Contact Radiology / [facility] Diagnoses Xr foot and Ankle rm 10 Procedures XR GENERAL 7 Cecil Mazariegos, COSMETICS COUNTER MANAGER.DIRECTOR OF COMMUNICATIONS [address] [place] [address] Radio General [facility] [address] [place] [address] Referral ID Status Reason Start Date Expiration Date Visits Re quested Visits Authorized [id number] Closed 02/21/2021 05/22/2021 99 99 Care Teams (unrecognized sec tion and content) Process Engineering Intern Relationship Specialty Start Date End Date Tavares Moise MD PCP - General Family Practice 06/12/16 Process Engineering Intern Relationship Specialty Start Date End Date Tavares Moise MD PCP - General Family Practice 06/12/16 Process Engineering Intern Relationship Specialty Start Date End Date Tavares Moise MD PCP - General Family Practice 06/12/16 Team Status: Active Member Role Status Dates Dr. Tavares Moise MD Family Provider Active Dr. Tavares Moise MD Primary Care Provider Active Team Status: Inactive Member Role Status Dates Dr. Tavares Moise MD Primary Care Provi tabitha, Attending Provider, Referring Provider Active Team Status: Inactive Member Role Status Dates Dr. Tavares Moise MD Primary Care Provider, Attending Provider Active Process Engineering Intern Relationship Specialty Start Date End Date Tavares Moise MD [facility]CP [facility] 06/12/16 Process Engineering Intern Relationship Specialty Start Date End Date Tavares Moise MD PCP - [facility] 06/12/16 Process Engineering Intern Relationship Specialty Start Date End Date Tavares Moise MD PCP - [facility] 06/12/16 FOR RECORDS PERTAINING TO PATIENTS WHO [...] BE BASED ON THE PRIMARY CLINICAL RECORDS. [employer] provides no warranty or guarantee of the accuracy or completeness of information in this document.
[2025-07-27 12:53] LABS: Anion Gap 9 (5-15); BUN 19 mg/dL (4-19); BUN/Creat Ratio 20.2 RATIO (10-20); Calcium,Total 9.0 mg/dL (7.6-11.0); Carbon Dioxide 24.1 mmol/L (21.0-32.0); Chloride 110 mmol/L (98-108); Cholesterol 147 mg/dL (<=200); Glucose 128 mg/dL (70-99); Low Density Lipoprotein Calc. 77 mg/dL; Potassium 4.4 mmol/L (3.3-5.1); Triglycerides 98 mg/dL; Very Low Density Lipoprotein 20 mg/dL (5-40); cholesterol:hdl ratio screen 2.93
[2025-07-27 13:14] LABS: Creatinine, Urine (random) 111.00 mg/dL (28.00-217.00); Microalbumin,Random Urine < 12.0 mg/L (<20 mg/L)
== END | disposition home or self-care (01) ==
PROVIDERS: PCP Family Medicine; Referring Provider Family Medicine; Visit Provider Family Medicine
DX: I10 Essential (primary) hypertension (principal)
CPT/HCPCS: 36415; 80048; 80061; 82043; 82570

== ENCOUNTER → 2025-07-29 | Outpatient (CLI) | payer MEDICARE, OTHER, SELFPAY ==
--- OUTSIDE RECORDS SUMMARY | 2025-07-29 08:23 | XMS RPT_ITS | CCD ---
Author Organization [facility] Care Team Providers Care Talking [employer] Library Clerk Name Role Phone JESÚS HAYS Unavailable Unavailable Tavares Moise MD Primary Care Provider Tavares Moise MD Primary Care Provider Dr. Tavares Moise Primary Care Provider Dr. Andrés Cuellar Emergency Provider Dr. Alondra Balderas Admit Provider Dr. Alondra Balderas Other Provider RAYMUNDO eDnton Attending Provider Unavail able Dr. Tavares Hernandez [...] Range Facility PET/CT Tumor Base -Thigh Ini [facility] 10-12-2024 PET/CT Tumor Base -Thigh Init [facility] Imaging Services [address] [place] [address] [id number] PET/CT Tumor Base -Thigh Init MR#: [id number] Acct: [id number] Name: BRITNEY VANESSA Rep #: [id number] : 1955 F 69 From: Tim Cartwright PCP: Dr. Tavares Moise MD Status: [facility] Study: PET/CT Tumor Base -Thigh Init Date of Exam: Exam# [id number] Ordering [place]: [place] [id number] EXAMINATION: FDG PET CT HISTORY: 69-year-old female [...] specificity of the FDG PET-CT examination. . [email or web address] Electronically Signed: Tim Bennett DO at 12:31 EST , CC: Dr. Tavares Moise MD; Dr. Lg Varma MD Floor Cashier: Signed Normal [facility] Dexa Bone Density Studyon Dexa Bone Density Study [facility] Imaging Services [address] [place], [place] [address] Dexa Bone Density Study MR#: [id number] Acct: [id number] Name: BRITNEY VANESSA Rep #: [id number] : 1955 F 69 From: Jimbo segundo MD PCP: Dr. Tavares Moise MD Status: [facility] Study: Dexa Bone Density Study Date of Exam: 09/09/24 Exam# [id number] Ordering [place]: [place] [id number] STUDY: DUAL ENERGY X-RAY ABSORPTIOMETRY / DXA [...] EDT , CC: Dr. Tavares Moise MD Floor Cashier: Signed Normal [facility] Low Dose CT Lung Screeningon 09-09-[address] Lung Screening [facility] Imaging Services [address] [place] [address] Lung Screening MR#: [id number] Acct: [id number] Name: BRITNEY VANESSA Rep #: [id number] : 1955 F 69 From: Jimbo segundo MD PCP: Dr. Tavares Moise MD Status: [facility] Study: Low Dose CT Lung Screening Date of Exam: 09/09 Exam# [id number] Ordering Dr: [place] [id number] STUDY: LOW DOSE CT LUNG CANCER SCREENING [...] 8:27 EDT Reading Location ID and State: [address] [place] [address] , Service support , CC: Dr. Tavares Moise MD Floor Cashier: Signed Normal [facility] SCRN MAMM (CAD)W/SALINAS BILATo n 09-09-2024 [facility] Imaging Services [address] [place] [address] SCRN MAMM (CAD)W/SALINAS BILAT MR#: [id number] Acct: [id number] Name: BRITNEY VANESSA Rep #: [id number] : 1955 F 69 From: Jimbo segundo MD PCP: Dr. Tavares Moise MD Status: [facility] Study: SCRN MAMM (CAD)W/SALINAS BILAT Date of Exam: 08/18 03/10 Exam# [id number] Ordering [place]: [place] [id number] MAMMOGRAPHY - BILATERAL SCREENING REASON FOR EXAM: [...] delay biopsy of a clinically suspicious abnormality. [id number] Electronically Signed: Jimbo Olivo MD at 8:41 EST , CC: Dr. Tavares Moise MD Floor Cashier: Signed [facility] (ARTURO) SAMUELBRITNEY ([id number]) 1955 F Date Time Provider Department 08/10/24 [...] Date Reviewed: 07/04/2022 Reviewed by: Petar Alexander APRN.PUBLIC HEALTH SPECIALIST - Fully Assessed Reason for Visit: Patient Question [3347] Prescriptions as of 08/10/2024 - lisinopril (ZESTRIL, [...] Status:Closed by TAMMI BLACKBURN on 08/10/24 Normal [facility] Prof cheri 08-02-2024 Albumin [Mass/Vol] 3.5 g/dL Normal 3.2-5.0 [facility] Comment on above: Performed By: #### L 500.4050, L500.4100 #### [facility] Laboratory [address] [place], [address] Albumin/Globulin [Mass ratio] 1.2 {ratio} Normal 0.9-2.[address] [facility] Comment on above: Performed By: #### L 500.4050, L500.4100 #### [facility] [address] [place], [address] ALK P 83 U/L Normal 45-[address] [facility] Comment on above: Performed By: #### L 500.4050, L500.4100 #### [facility] [address] [place], [address] ALT [Catalytic activity/Vol] 20 U/L Normal 13-[address] [facility] Comment on above: Performed By: #### L 500.4050, L500.4100 #### [facility] [address] [place], [address] AST [Catalytic activity/Vol] 11 U/L Low 15-[address] [facility] Comment on above: Performed By: #### L 500.4050, L500.4100 #### [facility] [address] [place], [address] Bilirubin [Mass/Vol] 0.50 mg/dL Normal 0.20-1.00 [facility] Comment on above: Result Comment: For patients on eltrombopag therapy, use of Dimension [place] TBIL is not recommended. Performed By: #### L 500.4050, L500.4100 #### [facility] [address] [place], [address] BUN/CRE 18.2 RATIO Normal 10-[address] [facility] Comment on above: Performed By: #### L 500.4050, L500.4100 #### [facility] [address] [place], [address] CA,Total 9.6 mg/dL Normal 8.5-10.[address] [facility] Comment on above: Performed By: #### L 500.4050, L500.4100 #### [facility] [address] [place], [address] Chloride [Moles/Vol] 113 mmol/L High 98-107 [facility] Comment on above: Performed By: #### L 500.4050, L500.4100 #### [facility] [address] [place], [address] CO2 [Moles/Vol] 24.0 mmol/L Normal 21.0-32.[address] [facility] Comment on above: Performed By: #### L 500.4050, L500.4100 #### [facility] [address] [place], [address] Creatinine [Mass/Vol] 0.99 mg/dL Normal 0.55-1.02 [facility] Comment on above: Result Comment: The validity of the calculated GFR GFRAA in patients over 70 years has not been determined. Clinical correlation is essential. Performed By: #### L 500.4050, L500.4100 #### [facility] [address] [place], [address] EST GFR - AA 71 mL/min Normal >[address] [facility] Comment on above: Result Comment: Afri can Portuguese GFR Calc Performed By: #### L 500.4050, L500.4100 #### [facility] [address] [place], [address] GAP 6 Normal 5-[address] [facility] Comment on above: Performed By: #### L 500.4050, L500.4100 #### [facility] [address] [place], [address] GFR/1.73 sq M.predicted among non-blacks MDRD (S/P/Bld) [Vol rate/Area] 59 mL/min/{1.73_m2} Low >[address] [facility] Comment on above: Result Comment: Non- GFR Calc Performed By: #### L 500.4050, L500.4100 #### [facility] [address] [place], [address] Globulin (S) [Mass/Vol] 2.8 g/dL Normal 2.2-4.[address] [facility] Comment on above: Performed By: #### L 500.4050, L500.4100 #### [facility] [address] [place], [address] Glucose [Mass/Vol] 132 mg/dL High 74-106 [facility] Comment on above: Result Comment: Fast ing Glucose result greater than or equal to 126 mg/dL suggests DIABETES MELLITUS per A.D.A. criteria. Performed By: #### L 500.4050, L500.4100 #### [facility] [address] [place], [address] Potassium [Moles/Vol] 4.5 mmol/L Normal 3.5-5.1 [facility] Comment on above: Performed By: #### L 500.4050, L500.4100 #### [facility] [address] [place], [address] Sodium [Moles/Vol] 143 mmol/L Normal 136-145 [facility] Comment on above: Performed By: #### L 500.4050, L500.4100 #### [facility] [address] [place], [address] T PROT 6.3 g/dL Low 6.4-8.[address] [facility] Comment on above: Performed By: #### L 500.4050, L500.4100 #### [facility] [address] [place], [address] Urea nitrogen [Mass/Vol] 18 mg/dL Normal 7-[address] [facility] Comment on above: Performed By: #### L 500.4050, L500.4100 #### [facility] [address] [place], [address] Lipid Profileon 08-02-2024 Cholesterol [Mass/Vol] 143 mg/dL Normal 200 [facility] Comment on above: Result Comment: <200 mg/dL Desirable 200-240 mg/dL Borderline >240 mg/dL High Risk Performed By: #### L 500.4050, L500.4100 #### [facility] [address] [place], [address] Cholesterol in HDL [Mass/Vol] 53 mg/dL Normal [facility] Comment on above: Result Comment: The drugs N-Acetylcysteine and Metamizole may falsely depress this assay. Reference Range HDL <40 mg/dL Low HDL Cholesterol HDL >or= 60 mg/dL High HDL Cholesterol Performed By: #### L 500.4050, L500.4100 #### [facility] [address] [place], [address] Cholesterol in LDL [Mass/Vol] 74 mg/dL Normal 0-[address] [facility] Comment on above: Performed By: #### L 500.4050, L500.4100 #### [facility] [address] [place], [address] Cholesterol in VLDL [Mass/Vol] 16 mg/dL Normal 5-[address] [facility] Comment on above: Performed By: #### L 500.4050, L500.4100 #### [facility] [address] [place], [address] Triglyceride [Mass/Vol] 81 mg/dL Normal [facility] Comment on above: Result Comment: The drugs N-Acetylcysteine and Metamizole may falsely depress this assay. Serum Triglycerides Reference Interval Normal <150 mg/dL Borderline high 150 - 199 mg/dL High 200 - 499 mg/dL Very High > or = 500 mg/dL Performed By: #### L 500.4050, L500.4100 #### [facility] [address] [place], [address] Basophil percentageOrdered B y: Tavares Moise on 08-08-2023 Chloride [Moles/Vol] 112 mmol/L 98-107 [facility] Cholesterol [Mass/Vol] 140 mg/dL <200 [facility] Comment on above: <200 mg/dL Desirable 200-240 mg/dL Borderline >240 mg/dL High Risk Glucose [Mass/Vol] 127 mg/dL 74-106 [facility] Comment on above: Fasting Glucose resu lt greater than or equal to 126 mg/dL suggests DIABETES MELLITUS per A.D.A. criteria. Potassium [Moles/Vol] 4.1 mmol/L 3.5-5.1 [facility] Sodium [Moles/Vol] 143 mmol/L 136-145 [facility] Triglyceride [Mass/Vol] 90 mg/dL <[address] [facility] Comment on above: The drugs N-Acetylcy steine and Metamizole may falsely depress this assay.Serum Triglycerides Reference Interval Normal <150 mg/dL Borderline high 150 - 199 mg/dL High 200 - 499 mg/dL Very High > or = 500 mg/dL Laboratory - Chemistry and C hemistry - challengeOrdered By: Tavares Miose on 08-08-2023 CO2 [Moles/Vol] 28.0 mmol/L 21.0-32.[address] [facility] Urea nitrogen/Creatinine [Mass ratio] 15.4 mg/mg 10-[address] [facility] No Panel InformationOrdered By: Tavares Moise on 08-08-2023 Estimated GFR (MDRD) Amer 73 mL/min >[address] [facility] Comment on above: GFR Calc Estimated GFR (MDRD) Non-Af Amer 60 mL/min >[address] [facility] Comment on above: Non- GFR Calc Serum or plasma calcium christal urement (mass/volume)Ordered By: Tavares Moise on 08-08-2023 Calcium [Mass/Vol] 8.9 mg/dL 8.5-10.1 [facility] Serum or plasma cholesterol in HDL measurement (mass/volume)Ordered By: Tavares Moise on 08-08-2023 Cholesterol in HDL [Mass/Vol] 44 mg/dL >[address] [facility] Comment on above: The drugs N-Acetylcy steine and Metamizole may falsely depress this assay. Reference Range HDL <40 mg/dL Low HDL Cholesterol HDL >or= 60 mg/dL High HDL Cholesterol Serum or plasma cholesterol in VLDL measurement (mass/volume)Ordered By: Tavares Moise on 08-08-2023 Cholesterol in VLDL [Mass/Vol] 18 mg/dL 5-[address] [facility] Serum or plasma creatinine m easurement (mass/volume)Ordered By: Tavares Moise on 08-08-2023 Creatinine [Mass/Vol] 0.97 mg/dL 0.55-1.02 [facility] Comment on above: The validity of the calculated GFR & GFRAA in patients over 70 years has not been determined. Clinical correlation is essential. Serum or plasma low density lipoprotein (LDL) cholesterol measurement (mass/volume)Ordered By: Tavares Moise on 08-08-2023 Cholesterol in LDL [Mass/Vol] 78 mg/dL 0-[address] [facility] Serum or plasma urea nitroge n measurement (mass/volume)Ordered By: Tavares Moise on 08-08-2023 Urea nitrogen [Mass/Vol] 15 mg/dL 7-[address] [facility] Thin prep Papanicolaou smear with manual screeningOrdered By: Tavares Moise on 08-08-2023 Thin prep Papanicolaou smear with manual screening 3 5-[address] [facility] Basophil percentageOrdered B y: Dr. Moise on 01-31-2023 Bilirubin [Mass/Vol] 0.40 mg/dL 0.20-1.00 [facility] Comment on above: For patients on eltr ombopag therapy, use of Dimension [place] TBIL is not recommended. Chloride [Moles/Vol] 110 mmol/L 98-107 [facility] Cholesterol [Mass/Vol] 146 mg/dL <200 [facility] Comment on above: <200 mg/dL Desirable 200-240 mg/dL Borderline >240 mg/dL High Risk Glucose [Mass/Vol] 118 mg/dL 74-106 [facility] Comment on above: Fasting Glucose resu lt from 100 to 125 mg/dL suggests IMPAIRED HOMEOSTASIS per A.D.A. criteria. Potassium [Moles/Vol] 4.8 mmol/L 3.5-5.1 [facility] Protein [Mass/Vol] 6.2 g/dL 6.4-8.2 [facility] Sodium [Moles/Vol] 143 mmol/L 136-145 [facility] Triglyceride [Mass/Vol] 103 mg/dL <[address] [facility] Comment on above: The drugs N-Acetylcy steine and Metamizole may falsely depress this assay.Serum Triglycerides Reference Interval Normal <150 mg/dL Borderline high 150 - 199 mg/dL High 200 - 499 mg/dL Very High > or = 500 mg/dL Laboratory - Chemistry and C hemistry - challengeOrdered By: Dr. Moise on 01-31-2023 ALP [Catalytic activity/Vol] 92 U/L 45-[address] [facility] ALT [Catalytic activity/Vol] 25 U/L 13-[address] [facility] CO2 [Moles/Vol] 28.0 mmol/L 21.0-32.[address] [facility] Globulin (S) [Mass/Vol] 2.6 g/dL 2.2-4.[address] [facility] Urea nitrogen/Creatinine [Mass ratio] 20.0 mg/mg 10-[address] [facility] No Panel InformationOrdered By: Dr. Moise on 01-31-2023 Estimated GFR (MDRD) Amer 71 mL/min >[address] [facility] Comment on above: GFR Calc Estimated GFR (MDRD) Non-Af Amer 58 mL/min >[address] [facility] Comment on above: Non- GFR Calc Serum or plasma albumin christal urement (mass/volume)Ordered By: Dr. Moise on 01-31-2023 Albumin [Mass/Vol] 3.6 g/dL 3.2-5.0 [facility] Serum or plasma albumin/glob ulin mass ratioOrdered By: Dr. Moise on 03-17-2023 Albumin/Globulin [Mass ratio] 1.4 {ratio} 0.9-2.[address] [facility] Serum or plasma calcium christal urement (mass/volume)Ordered By: Dr. Moise on 01-31-2023 Calcium [Mass/Vol] 9.2 mg/dL 8.5-10.1 [facility] Serum or plasma cholesterol in HDL measurement (mass/volume)Ordered By: Dr. Moise on 01-31-2023 Cholesterol in HDL [Mass/Vol] 51 mg/dL >[address] [facility] Comment on above: The drugs N-Acetylcy steine and Metamizole may falsely depress this assay. Reference Range HDL <40 mg/dL Low HDL Cholesterol HDL >or= 60 mg/dL High HDL Cholesterol Serum or plasma cholesterol in VLDL measurement (mass/volume)Ordered By: Dr. Moise on 01-31-2023 Cholesterol in VLDL [Mass/Vol] 21 mg/dL 5-[address] [facility] Serum or plasma creatinine m easurement (mass/volume)Ordered By: Dr. Moise on 01-31-2023 Creatinine [Mass/Vol] 1.00 mg/dL 0.55-1.02 [facility] Comment on above: The validity of the calculated GFR & GFRAA in patients over 70 years has not been determined. Clinical correlation is essential. Serum or plasma low density lipoprotein (LDL) cholesterol measurement (mass/volume)Ordered By: Dr. Moise on 01-31-2023 Cholesterol in LDL [Mass/Vol] 74 mg/dL 0-[address] [facility] Serum or plasma urea nitroge n measurement (mass/volume)Ordered By: Dr. Moise on 01-31-2023 Urea nitrogen [Mass/Vol] 20 mg/dL 7-[address] [facility] Thin prep Papanicolaou smear with manual screeningOrdered By: Dr. Moise on 01-31-2023 Thin prep Papanicolaou smear with manual screening 19 U/L 15-[address] [facility] Thin prep Papanicolaou smear with manual screening 5 5-[address] [facility] Absolute lymphocyte counton 07-02-2022 Lymphocytes Auto (Unsp spec) [#/Vol] 2.41 10*3/uL 0.83-4.[address] [facility] Work Phone: Basophil percentageon 2021 Basophil percentage 4.6 mg/dL 2.5-4.9 [facility] Work Phone: [phone] Basophils/100 WBC (Bld) 0.3 % 0-[address] [facility] Work Phone: [phone] Bilirubin [Mass/Vol] 0.20 mg/dL 0.20-1.00 [facility] Work Phone: Comment on above: For patients on eltr ombopag therapy, use of Dimension [place] TBIL is not recommended. Chloride [Moles/Vol] 113 mmol/L 98-107 [facility] Work Phone: Cholesterol [Mass/Vol] 130 mg/dL <200 [facility] Work Phone: Comment on above: <200 mg/dL Desirable 200-240 mg/dL Borderline >240 mg/dL High Risk Eosinophils/100 WBC (Bld) 1.4 % 0-[address] [facility] Work Phone: Glucose [Mass/Vol] 104 mg/dL 74-106 [facility] Work Phone: Comment on above: Fasting Glucose resu lt from 100 to 125 mg/dL suggests IMPAIRED HOMEOSTASIS per A.D.A. criteria. Neutrophils (Bld) [#/Vol] 3.4 10*3/uL 2.0-7.[address] [facility] Work Phone: Neutrophils/100 WBC (Bld) 52.1 % 47-[address] [facility] Work Phone: [phone] Potassium [Moles/Vol] 3.9 mmol/L 3.5-5.1 [facility] Work Phone: [phone] Protein [Mass/Vol] 5.7 g/dL 6.4-8.2 [facility] Work Phone: [phone] Sodium [Moles/Vol] 144 mmol/L 136-145 [facility] Work Phone: Triglyceride [Mass/Vol] 116 mg/dL <[address] [facility] Work Phone: Comment on above: The drugs N-Acetylcy steine and Metamizole may falsely depress this assay.Serum Triglycerides Reference Interval Normal <150 mg/dL Borderline high 150 - 199 mg/dL High 200 - 499 mg/dL Very High > or = 500 mg/dL WBC (Bld) [#/Vol] 6.5 10*3/uL 4.4-11.0 [facility] Work Phone: Blood erythrocytes count (nu mber/volume)on 07-02-2022 RBC (Bld) [#/Vol] 4.17 10*6/uL 4.2-5.4 [facility] Work Phone: Blood hemoglobin measurement (mass/volume)on 07-02-2022 Hemoglobin (Bld) [Mass/Vol] 12.8 g/dL 12.0-15.[address] [facility] Work Phone: Blood lymphocytes/100 leukoc yteson 07-02-2022 Lymphocytes/100 WBC (Bld) 37.0 % 19-[address] [facility] Work Phone: Blood monocytes/100 leukocyt eson 07-02-2022 Monocytes/100 WBC (Bld) 8.9 % 0-[address] [facility] Work Phone: Blood platelet mean volumeon 07-02-2022 Platelet mean volume (Bld) [Entitic vol] 9.3 fL 6.2-12.[address] [facility] Work Phone: Determination of erythrocyte mean corpuscular volume (MCV)on 07-02-2022 MCV (RBC) [Entitic vol] 96.4 fL 81-[address] [facility] Work Phone: Hematocrit Auto (Bld) [Volum e fraction]on 07-02-2022 Hematocrit (Bld) [Volume fraction] 40.2 % 37-[address] [facility] Work Phone: Laboratory - Chemistry and C hemistry - challengeon 07-02-2022 ALP [Catalytic activity/Vol] 83 U/L 45-[address] [facility] Work Phone: ALT [Catalytic activity/Vol] 30 U/L 13-[address] [facility] Work Phone: CO2 [Moles/Vol] 26.0 mmol/L 21.0-32.[address] [facility] Work Phone: Globulin (S) [Mass/Vol] 2.7 g/dL 2.2-4.[address] [facility] Work Phone: Magnesium [Mass/Vol] 2.1 mg/dL 1.6-2.6 [facility] Work Phone: Urea nitrogen/Creatinine [Mass ratio] 19.2 mg/mg 10-[address] [facility] Work Phone: Laboratory - Hematology and Cell countson 07-02-2022 Erythrocyte distribution width (RBC) [Entitic vol] 46.6 fL 35.1-43.[address] [facility] Work Phone: Erythrocyte distribution width (RBC) [Ratio] 13.1 % 11.6-14.[address] [facility] Work Phone: Immature granulocytes/100 WBC (Bld) 0.300 % 0.0-0.[address] [facility] Work Phone: Comment on above: IG% - Immature Granu locytes (promyelocytes, myelocytes and metamyelocytes) > 1% indicates that a LEFT SHIFT is Present. MCH (RBC) [Entitic mass] 30.7 pg 27.0-32.[address] [facility] Work Phone: Nucleated RBC/100 WBC (Bld) [Ratio] 0 % 0-[address] [facility] Work Phone: MCHC Auto (RBC) [Mass/Vol]on 07-02-2022 MCHC (RBC) [Mass/Vol] 31.8 g/dL 32-36 [facility] Work Phone: No Panel Informationon 07-02 Estimated Creatinine Clearance Calc 48.95 ml/min [facility] Work Phone: Estimated GFR (MDRD) Amer 87 mL/min >[address] [facility] Work Phone: Comment on above: GFR Calc Estimated GFR (MDRD) Non-Af Amer 72 mL/min >[address] [facility] Work Phone: Comment on above: Non- GFR Calc Thyroid Stimulating Hormone (TSH) 2.83 uIU/mL 0.358-3.[address] [facility] Work Phone: Platelets bldon 07-02-2022 Platelets (Bld) [#/Vol] 266 10*3/uL 150-[address] [facility] Work Phone: Serum or plasma albumin christal urement (mass/volume)on 07-02-2022 Albumin [Mass/Vol] 3.0 g/dL 3.2-5.0 [facility] Work Phone: Serum or plasma albumin/glob ulin mass ratioon 07-02-2022 Albumin/Globulin [Mass ratio] 1.1 {ratio} 0.9-2.[address] [facility] Work Phone: Serum or plasma calcium christal urement (mass/volume)on 07-02-2022 Calcium [Mass/Vol] 8.5 mg/dL 8.5-10.1 [facility] Work Phone: Serum or plasma cholesterol in HDL measurement (mass/volume)on 07-02-2022 Cholesterol in HDL [Mass/Vol] 41 mg/dL >[address] [facility] Work Phone: Comment on above: The drugs N-Acetylcy steine and Metamizole may falsely depress this assay. Reference Range HDL <40 mg/dL Low HDL Cholesterol HDL >or= 60 mg/dL High HDL Cholesterol Serum or plasma cholesterol in VLDL measurement (mass/volume)on 07-02-2022 Cholesterol in VLDL [Mass/Vol] 23 mg/dL 5-[address] [facility] Work Phone: Serum or plasma creatinine m easurement (mass/volume)on 07-02-2022 Creatinine [Mass/Vol] 0.83 mg/dL 0.55-1.02 [facility] Work Phone: Comment on above: The validity of the calculated GFR & GFRAA in patients over 70 years has not been determined. Clinical correlation is essential. Serum or plasma low density lipoprotein (LDL) cholesterol measurement (mass/volume)on 07-02-2022 Cholesterol in LDL [Mass/Vol] 66 mg/dL 0-[address] [facility] Work Phone: Serum or plasma urea nitroge n measurement (mass/volume)on 07-02-2022 Urea nitrogen [Mass/Vol] 16 mg/dL 7-[address] [facility] Work Phone: Thin prep Papanicolaou smear with manual screeningon 07-02-2022 Thin prep Papanicolaou smear with manual screening 16 U/L 15-[address] [facility] Work Phone: Thin prep Papanicolaou smear with manual screening 5 5-[address] [facility] Work Phone: Whole blood hemoglobin A1c/t otal hemoglobin ratio (mass fraction)on 07-02-2022 HbA1c (Bld) [Mass fraction] 6.2 % 3.8-5.[address] [facility] Work Phone: Comment on above: Normal < 5.7 % Predi abetic 5.7 - 6.4 % Diabetic >or= 6.5 % Please note range changes. Absolute lymphocyte counton 07-01-2022 Lymphocytes Auto (Unsp spec) [#/Vol] 2.15 10*3/uL 0.83-4.[address] [facility] Work Phone: Basophil percentageon 2021 Basophils/100 WBC (Bld) 0.2 % 0-[address] [facility] Work Phone: Chloride [Moles/Vol] 112 mmol/L 98-107 [facility] Work Phone: Eosinophils/100 WBC (Bld) 0.9 % 0-[address] [facility] Work Phone: Glucose [Mass/Vol] 114 mg/dL 74-106 [facility] Work Phone: Comment on above: Fasting Glucose resu lt from 100 to 125 mg/dL suggests IMPAIRED HOMEOSTASIS per A.D.A. criteria. Neutrophils (Bld) [#/Vol] 5.2 10*3/uL 2.0-7.[address] [facility] Work Phone: Neutrophils/100 WBC (Bld) 63.8 % 47-[address] [facility] Work Phone: Potassium [Moles/Vol] 3.9 mmol/L 3.5-5.1 [facility] Work Phone: Sodium [Moles/Vol] 143 mmol/L 136-145 [facility] Work Phone: WBC (Bld) [#/Vol] 8.1 10*3/uL 4.4-11.0 [facility] Work Phone: Blood erythrocytes count (nu mber/volume)on 07-01-2022 RBC (Bld) [#/Vol] 4.41 10*6/uL 4.2-5.4 [facility] Work Phone: Blood hemoglobin measurement (mass/volume)on 07-01-2022 Hemoglobin (Bld) [Mass/Vol] 13.7 g/dL 12.0-15.[address] [facility] Work Phone: Blood lymphocytes/100 leukoc yteson 07-01-2022 Lymphocytes/100 WBC (Bld) 26.6 % 19-[address] [facility] Work Phone: Blood monocytes/100 leukocyt eson 07-01-2022 Monocytes/100 WBC (Bld) 8.3 % 0-[address] [facility] Work Phone: Blood platelet mean volumeon 07-01-2022 Platelet mean volume (Bld) [Entitic vol] 9.2 fL 6.2-12.[address] [facility] Work Phone: Determination of erythrocyte mean corpuscular volume (MCV)on 07-01-2022 MCV (RBC) [Entitic vol] 95.0 fL 81-[address] [facility] Work Phone: Glucose Glucometer (BldC) [M ass/Vol]on 07-01-2022 Glucose [Mass/Vol] 117 mg/dL 74-106 [facility] Work Phone: Comment on above: MANAGEMENT OF PATIEN T CARE PER NURSING PROTOCOL Hematocrit Auto (Bld) [Volum e fraction]on 07-01-2022 Hematocrit (Bld) [Volume fraction] 41.9 % 37-[address] [facility] Work Phone: INR in Blood by Coagulation assayon 07-01-2022 INR Coag (Bld) [Relative time] 1.0 {INR} [facility] Work Phone: Laboratory - Chemistry and C hemistry - challengeon 07-01-2022 CO2 [Moles/Vol] 27.0 mmol/L 21.0-32.[address] [facility] Work Phone: Urea nitrogen/Creatinine [Mass ratio] 21.0 mg/mg 10-[address] [facility] Work Phone: Laboratory - Coagulationon 0 07-01-2022 aPTT Coag (Bld) [Time] 23.9 s 24.1-36.2 [facility] Work Phone: PT Coag (PPP) [Time] 12.4 s 11.7-14.9 [facility] Work Phone: Laboratory - Hematology and Cell countson 07-01-2022 Erythrocyte distribution width (RBC) [Entitic vol] 45.6 fL 35.1-43.[address] [facility] Work Phone: Erythrocyte distribution width (RBC) [Ratio] 13.0 % 11.6-14.[address] [facility] Work Phone: Immature granulocytes/100 WBC (Bld) 0.200 % 0.0-0.[address] [facility] Work Phone: Comment on above: IG% - Immature Granu locytes (promyelocytes, myelocytes and metamyelocytes) > 1% indicates that a LEFT SHIFT is Present. MCH (RBC) [Entitic mass] 31.1 pg 27.0-32.[address] [facility] Work Phone: Nucleated RBC/100 WBC (Bld) [Ratio] 0 % 0-[address] [facility] Work Phone: YARIEL SCREENING W TOMOon 07-01 [facility] MCHC Auto (RBC) [Mass/Vol]on 07-01-2022 MCHC (RBC) [Mass/Vol] 32.7 g/dL 32-36 [facility] Work Phone: No Panel Informationon 07-01 Estimated Creatinine Clearance Calc 27.68 ml/min [facility] Work Phone: Estimated GFR (MDRD) Amer 97 mL/min >[address] [facility] Work Phone: Comment on above: GFR Calc Estimated GFR (MDRD) Non-Af Amer 80 mL/min >[address] [facility] Work Phone: Comment on above: Non- GFR Calc Troponin I High Sensitivity 6 pg/mL 3.0-54.[address] [facility] Work Phone: Comment on above: Please Note: New Debra t Units and Gender Specific Reference Ranges. For more information see Policy Stat Procedure [place] High Sensitivity Troponin (TNIH) and attachments. Platelets bldon 07-01-2022 Platelets (Bld) [#/Vol] 293 10*3/uL 150-[address] [facility] Work Phone: Serum or plasma calcium christal urement (mass/volume)on 07-01-2022 Calcium [Mass/Vol] 8.8 mg/dL 8.5-10.1 [facility] Work Phone: Serum or plasma creatinine m easurement (mass/volume)on 07-01-2022 Creatinine [Mass/Vol] 0.76 mg/dL 0.55-1.02 [facility] Work Phone: Comment on above: The validity of the calculated GFR & GFRAA in patients over 70 years has not been determined. Clinical correlation is essential. Serum or plasma urea nitroge n measurement (mass/volume)on 07-01-2022 Urea nitrogen [Mass/Vol] 16 mg/dL 7-[address] [facility] Work Phone: Thin prep Papanicolaou smear with manual screeningon 07-01-2022 Thin prep Papanicolaou smear with manual screening 4 5-[address] [facility] Work Phone: Basophil percentageon 2021 Chloride [Moles/Vol] 112 mmol/L 98-107 [facility] Work Phone: Cholesterol [Mass/Vol] 225 mg/dL <200 [facility] Work Phone: Comment on above: <200 mg/dL Desirable 200-240 mg/dL Borderline >240 mg/dL High Risk Glucose [Mass/Vol] 124 mg/dL 74-106 [facility] Work Phone: Comment on above: Fasting Glucose resu lt from 100 to 125 mg/dL suggests IMPAIRED HOMEOSTASIS per A.D.A. criteria. Potassium [Moles/Vol] 4.0 mmol/L 3.5-5.1 [facility] Work Phone: Sodium [Moles/Vol] 142 mmol/L 136-145 [facility] Work Phone: Triglyceride [Mass/Vol] 123 mg/dL [facility] Work Phone: Comment on above: The drugs N-Acetylcy steine and Metamizole may falsely depress this assay.Serum Triglycerides Reference Interval Normal <150 mg/dL Borderline high 150 - 199 mg/dL High 200 - 499 mg/dL Very High > or = 500 mg/dL Laboratory - Chemistry and C hemistry - challengeon 02-04-2022 CO2 [Moles/Vol] 25.0 mmol/L 21.0-32.[address] [facility] Work Phone: Urea nitrogen/Creatinine [Mass ratio] 17.6 mg/mg 10-[address] [facility] Work Phone: No Panel Informationon 02-04 Estimated GFR (MDRD) Amer 85 mL/min >[address] [facility] Work Phone: Comment on above: GFR Calc Estimated GFR (MDRD) Non-Af Amer 71 mL/min >[address] [facility] Work Phone: Comment on above: Non- GFR Calc Thyroid Stimulating Hormone (TSH) 3.10 uIU/mL 0.358-3.[address] [facility] Work Phone: Serum or plasma calcium christal urement (mass/volume)on 02-04-2022 Calcium [Mass/Vol] 8.9 mg/dL 8.5-10.1 [facility] Work Phone: Serum or plasma cholesterol in HDL measurement (mass/volume)on 02-04-2022 Cholesterol in HDL [Mass/Vol] 49 mg/dL [facility] Work Phone: Comment on above: The drugs N-Acetylcy steine and Metamizole may falsely depress this assay. Reference Range HDL <40 mg/dL Low HDL Cholesterol HDL >or= 60 mg/dL High HDL Cholesterol Serum or plasma cholesterol in VLDL measurement (mass/volume)on 02-04-2022 Cholesterol in VLDL [Mass/Vol] 25 mg/dL 5-[address] [facility] Work Phone: Serum or plasma creatinine m easurement (mass/volume)on 02-04-2022 Creatinine [Mass/Vol] 0.85 mg/dL 0.55-1.02 [facility] Work Phone: Comment on above: The validity of the calculated GFR & GFRAA in patients over 70 years has not been determined. Clinical correlation is essential. Serum or plasma low density lipoprotein (LDL) cholesterol measurement (mass/volume)on 02-04-2022 Cholesterol in LDL [Mass/Vol] 151 mg/dL 0-[address] [facility] Work Phone: Serum or plasma urea nitroge n measurement (mass/volume)on 02-04-2022 Urea nitrogen [Mass/Vol] 15 mg/dL 7-[address] [facility] Work Phone: Thin prep Papanicolaou smear with manual screeningon 02-04-2022 Thin prep Papanicolaou smear with manual screening 5 -[address] [facility] Work Phone: No Panel Informationon 02-21 IMPRESSION: No radiographic evidence of acute osseous injury. Floor Cashier: REX Transcribe Date/Time: Feb 21 2021 2:17P Dictated by : ANITA SCHULTZ MD This examination was interpreted and the report reviewed and electronically signed by: ANITA SCHULTZ MD on Feb 21 2021 2:28PM [facility] DIVISION OF RADIOLOGY Radiology Study observation (narrative) [facility] No Panel InformationOrdered By: Ccf Provider on 02-21-2021 [facility] XR Ankle - right AP [...] joint degenerative changes. [facility] * * *Final Report* [...] No radiographic evidence of acute osseous injury. Floor Cashier: [facility] Transcribe Date/Time: Feb 21 2021 2:17P Dictated by : ANITA SCHULTZ MD This examination was interpreted and the report reviewed and electronically signed by: ANITA SCHULTZ MD on Feb 21 2021 2:28PM EST [facility] XR Foot - right AP [...] joint degenerative changes. DIVISION OF RADIOLOGY Provider, [facility] - 02/21/2021 * * *Final Report* [...] No radiographic evidence of acute osseous injury. Floor Cashier: REX Transcribe Date/Time: Feb 21 2021 2:17P Dictated by : ANITA SCHULTZ MD This examination was interpreted and the report reviewed and electronically signed by: ANITA SCHULTZ MD on Feb 21 2021 2:28PM EST [facility] Final Surgical Pathology Rep [facility] 10-06-2018 Final Surgical Pathology Report . Pathology ReportsAccession: Collected Date/Time: Received Date/Time: Pathologist:[id number] 23 10/02/2018 14:15 EST 10/05/2018 14:15 DO CYNTHIA CASTRO Final Surgical Pathology ReportDIAGNOSIS:SERRATE D POLYP, TRANSVERSE COLON.CLINICAL INFORMATION:SCREENINGSP ECIMEN:A TRANSVERSE COLON POLYPGROSS DESCRIPTION:Received in formalin labeled transverse colon polyp is a 0.6 cm pale villatoro soft tissue fragment and a moderate amount of debris. TS -1Dictated by Anitra BARCENAS ([facility])MICROSCOPIC DESCRIPTION:Slides reviewed.Electronically Signed byPathology Report verified by [facility] signed by CYNTHIA CARTER DOSign out Date: 10/06/2018 13:57Performing Lab: [facility], [address] [place] [address] ([place]) Comment on above: Performed By: #### S PFR ####[place] [id number] Vital Signs Date Time Vital Sign Value Performing Clinician Facility 07-04-2022 10:02-0400 Body height 153.3 cm Petar Alexander APRN.PUBLIC HEALTH SPECIALIST Work Phone: [facility] 07-04-2022 10:02-0400 Body temperature 98.71 [degF] Petar Alexander APRN.CNP Work Phone: [facility] 07-04-2022 10:02-0400 Body weight 70.31 kg Petar Alexander BOTTOM PRECIPITATOR OPERATOR.PUBLIC HEALTH SPECIALIST Work Phone: [facility] 07-04-2022 10:02-0400 Diastolic blood pressure 93 mm[Hg] Petar Alexander BOTTOM PRECIPITATOR OPERATOR.PUBLIC HEALTH SPECIALIST Work Phone: [facility] 07-04-2022 10:02-0400 Heart rate 80 /min Petar Alexander BOTTOM PRECIPITATOR OPERATOR.PUBLIC HEALTH SPECIALIST Work Phone: [facility] 07-04-2022 10:02-0400 SaO2% (BldA) [Mass fraction] 96 % Petar Alexander BOTTOM PRECIPITATOR OPERATOR.PUBLIC HEALTH SPECIALIST Work Phone: [facility] 07-04-2022 10:02-0400 Systolic blood pressure 139 mm[Hg] Petar Alexander BOTTOM PRECIPITATOR OPERATOR.PUBLIC HEALTH SPECIALIST Work Phone: [facility] 07-02-2022 16:27-0400 Body mass index (BMI) [Ratio] 29 kg/m2 Dr. Tavares Moise Work Phone: [facility] Work Phone: 07-02-2022 15:00-0400 Body temperature 98.1 [degF] Dr. Tavares Moise Work Phone: [facility] Work Phone: 07-02-2022 15:00-0400 Diastolic blood pressure 70 mm[Hg] Dr. Tavares Moise Work Phone: [facility] Work Phone: 07-02-2022 15:00-0400 Heart rate 72 /min Dr. Tavares Moise Work Phone: [facility] Work Phone: 07-02-2022 15:00-0400 Respiratory rate 18 /min Dr. Tavares Moise Work Phone: [facility] Work Phone: 07-02-2022 15:00-0400 SaO2% (BldA) [Mass fraction] 98 % Dr. Tavares Moise Work Phone: [facility] Work Phone: 07-02-2022 15:00-0400 Systolic blood pressure 144 mm[Hg] Dr. Tavares Moise Work Phone: [facility] Work Phone: 07-01-2022 18:36-0400 Body height 154.[address] Tavares Moise Work Phone: [facility] Work Phone: 07-01-2022 18:36-0400 Body weight 69.[address] Tavares Moise Work Phone: [facility] Work Phone: 07-01-2022 18:13-0400 Body temperature 98 [degF] Dr. Tavares Moise Work Phone: [facility] Work Phone: 07-01-2022 18:13-0400 Diastolic blood pressure 96 mm[Hg] Dr. Tavares Moise Work Phone: [facility] Work Phone: 07-01-2022 18:13-0400 Heart rate 70 /min Dr. Tavares Moise Work Phone: [facility] Work Phone: 07-01-2022 18:13-0400 Respiratory rate 18 /min Dr. Tavares Moise Work Phone: [facility] Work Phone: 07-01-2022 18:13-0400 SaO2% (BldA) [Mass fraction] 95 % Dr. Tavares Moise Work Phone: [facility] Work Phone: 07-01-2022 18:13-0400 Systolic blood pressure 141 mm[Hg] Dr. Tavares Moise Work Phone: [facility] Work Phone: 07-01-2022 15:54-0400 Body height 152.[address] Tavares Moise Work Phone: [facility] Work Phone: 07-01-2022 15:54-0400 Body mass index (BMI) [Ratio] 14 kg/m2 Dr. Tavares Moise Work Phone: [facility] Work Phone: 07-01-2022 15:54-0400 Body weight 32.[address] Tavares Moise Work Phone: [facility] Work Phone: Encounters Encounter Date Encounter Type Care Provider Facility Start: 10-12-2024 End: 10-12-2024 ambulatory Lg Varma Facility:[facility] Start: 09-09-2024 End: 09-09-2024 ambulatory [facility] Facility:[facility] Start: 08-27-2024 End: 08-27-2024 Chart abstracting Tavares Dupree DO Work Phone: Hematology/Oncology Start: 08-10-2024 End: 08-10-2024 Telephone encounter Petar Alexander APRN.PUBLIC HEALTH SPECIALIST Work Phone: Hematology/Oncology Comment on above: Patient Question Start: 08-02-2024 End: 08-02-2024 ambulatory [facility] Facility:[facility] Start: 08-08-2023 End: 08-08-[address] [facility] Work Phone: Start: 08-08-2023 End: 08-08-2023 Patient encounter procedure [facility] Start: 01-31-2023 End: 01-31-[address] [facility] Work Phone: Start: 01-31-2023 End: 01-31-2023 Patient encounter procedure [facility] Start: 07-04-2022 End: 07-04-2022 ambulatory Petar Alexander APRN.PUBLIC HEALTH SPECIALIST Work Phone: Hematology/Oncology Comment on above: Personal history of malignant neoplasm of breast (Primary Dx) Start: 07-04-2022 End: 07-04-2022 Patient encounter procedure Petar Alexander BOTTOM PRECIPITATOR OPERATOR.PUBLIC HEALTH SPECIALIST Work Phone: [facility] Start: 07-02-2022 Non-patient / Non-visit Dr. Panda Moise Work Phone: [facility] Start: 07-02-2022 Non-patient / Non-visit Dr. Panda Moise Work Phone: [facility] Start: 07-01-2022 Non-patient / Non-visit Dr. Panda Moise Work Phone: [facility] Start: 07-01-2022 End: 07-02-2022 Evaluation and management of inpatient Dr. Tavares Moise Work Phone: [facility] Start: 07-01-2022 End: 07-01-2022 Subsequent hospital visit by physician Screen Mammo [facility] Wstr Mammogram Comment on above: Personal history of malignant neoplasm of breast [Z85.3] Start: 05-12-2022 Refill Petar Carpente r BOTTOM PRECIPITATOR OPERATOR.PUBLIC HEALTH SPECIALIST Work Phone: Hematology/Oncology Comment on above: Refill Request Start: 03-05-2022 Refill Donaldson Carpente r BOTTOM PRECIPITATOR OPERATOR.PUBLIC HEALTH SPECIALIST Work Phone: Hematology/Oncology Comment on above: Refill Request; Refi ll Request Start: 02-13-2022 End: 02-13-2022 Patient encounter procedure [facility] Start: 02-04-2022 End: 02-04-2022 Patient encounter procedure [facility] Start: 02-21-2021 End: 02-21-2021 Subsequent hospital visit by physician Xr [facility] Work Phone: Radiology Comment on above: Acute [...] YARIEL SCREENING W SALINAS Da brina Alexander BOTTOM PRECIPITATOR OPERATOR.PUBLIC HEALTH SPECIALIST Work Phone: Start: 07-01-2022 Mammography Screen Wst r Start: 06-29-2021 Mammography Petar michael BOTTOM PRECIPITATOR OPERATOR.PUBLIC HEALTH SPECIALIST Work Phone: Start: 02-21-2021 Radex ankle complete minimum 3 views Cecil Chatal BOTTOM PRECIPITATOR OPERATOR.PUBLIC HEALTH SPECIALIST Work Phone: Start: 06-18-2019 Adult depression screening assessment Petar Alexander BOTTOM PRECIPITATOR OPERATOR.PUBLIC HEALTH SPECIALIST Work Phone: Start: 06-25-2014 Lipid 1996 panel - S derrick or Plasma Petar Alexander BOTTOM PRECIPITATOR OPERATOR.PUBLIC HEALTH SPECIALIST Work Phone: Start: 11-17-2012 Colonoscopy Petar michael BOTTOM PRECIPITATOR OPERATOR.PUBLIC HEALTH SPECIALIST Work Phone: H/O: surgery History of lumpe ctomy of right breast Dr. Tavares Moise Work Phone: Plan of Treatment Date Care Activity Detail Author Start: 2028 RSV Vaccine (1 - 1-dose 75+ series) RSV Vaccine (1 - 1-dose 75+ series) [facility] Start: 07-18-2024 Covid-19 Vaccine ( season) Covid-19 Vaccine ( season) [facility] Start: 07-18-2024 Influenza vaccination Influenza Vaccine (#1) [facility] Start: 11-17-2023 Advance Directive Discussion Advance Directive Discussion [facility] Start: 09-11-2023 Pneumococcal Vaccine: 65+ (3 of 3 - PPSV23 or PCV20) Pneumococcal Vaccine: 65+ (3 of 3 - PPSV23 or PCV20) [facility] Start: 07-01-2023 Mammography MAMMOGRAM [facility] Start: 07-01-2023 Screening for malignant neoplasm of breast Mammogram Screening [facility] Start: 07-18-2022 Influenza vaccination [facility] Start: 07-02-2022 Patient discharge [facility] Work Phone: Start: 07-02-2022 US Heart [facility] Work Phone: Start: 07-01-2022 Application of intermittent pneumatic compression device [facility] Work Phone: Start: 07-01-2022 Assessment of risk of venous thromboembolism [facility] Work Phone: Start: 07-01-2022 Cardiac monitoring [facility] Work Phone: Start: 07-01-2022 Catheterization of vein [facility] Work Phone: Start: 07-01-2022 Elevation of head of bed [facility] Work Phone: Start: 07-01-[address] [facility] Work Phone: Start: 07-01-2022 Implementation of planned interventions [facility] Work Phone: Start: 07-01-2022 Incentive spirometry [facility] Work Phone: Start: 07-01-2022 Insertion of catheter into peripheral vein [facility] Work Phone: Start: 07-01-2022 Measuring intake and output [facility] Work Phone: Start: 07-01-2022 Notification of physician [facility] Work Phone: Start: 07-01-2022 [address] therapy [facility] Work Phone: Start: 07-01-2022 Providing care according to standard [facility] Work Phone: Start: 07-01-2022 Provision of activity privileges [facility] Work Phone: Start: 07-01-2022 Referral to occupational therapist [facility] Work Phone: Start: 07-01-2022 Referral to service [facility] Work Phone: Start: 07-01-2022 Speech therapy assessment [facility] Work Phone: Start: 07-01-2022 Tobacco use cessation education [facility] Work Phone: Start: 07-01-[address] [facility] Work Phone: Start: 07-01-2022 Following clinical pathway protocol [facility] Work Phone: Start: 07-01-2022 MR Brain WO contrast [facility] Work Phone: Start: 07-01-2022 MRI of brain without contrast Brain without Contrast [facility] Work Phone: Start: 07-01-2022 Verification routine [facility] Work Phone: Start: 07-01-2022 Admission procedure [facility] Work Phone: Start: 07-01-20[address] therapy [facility] Work Phone: Start: 07-01-[address] [facility] Work Phone: Start: 06-29-2022 Mammography MAMMOGRAM [facility] Start: 02-20-2022 COVID-19 VACCINE (4 - Booster for Moderna series) COVID-19 VACCINE (4 - Booster for Moderna series) [facility] Start: 01-14-2022 COVID-19 VACCINE (4 - Booster for Moderna series) COVID-19 VACCINE (4 - Booster for Moderna series) [facility] Start: 11-17-2021 ADVANCE DIRECTIVE DISCUSSION ADVANCE DIRECTIVE DISCUSSION [facility] Start: 11-01-2021 PNEUMOVAX AGE 65 AND OVER WITH 5YR LOOKBACK (#1) PNEUMOVAX AGE 65 AND OVER WITH 5YR LOOKBACK (#1) [facility] Start: 03-21-2021 COVID-19 VACCINE (3 - Moderna risk series) COVID-19 VACCINE (3 - Moderna risk series) [facility] Start: 06-18-2020 Adult depression screening assessment DEPRESSION SCREENING [facility] Start: 11-17-2019 Urine microalbumin profile [place] [facility] Start: 06-25-2019 Lipid panel Lipid Screening [facility] Start: 06-25-2019 LIPID SCREEN LIPID SCREEN [facility] Start: 2018 PNEUMOCOCCAL: 65+ (1 - PCV) PNEUMOCOCCAL: 65+ (1 - PCV) [facility] Start: 11-01-2017 PNEUMOCOCCAL: 65+ (2 - PCV) PNEUMOCOCCAL: 65+ (2 - PCV) [facility] Start: 05-26-2017 DIABETES SCREEN DIABETES SCREEN [facility] Start: 05-26-2017 Diabetes Screening Diabetes Screening [facility] Start: 11-17-2013 Colonoscopy COLONOSCOPY [facility] Start: 11-17-2013 COLORECTAL CANCER SCREENING COLORECTAL CANCER SCREENING [facility] Start: 11-17-2013 Screening for malignant neoplasm of colon [facility] Start: 2003 SHINGRIX VACCINE (1 of 2) SHINGRIX VACCINE (1 of 2) [facility] Start: 1998 COLOGUARD (FIT-DNA) COLOGUARD (FIT-DNA) [facility] Start: [address] COLONOGRAPHY [facility] Start: 1998 FECAL OCCULT BLOOD FECAL OCCULT BLOOD [facility] Start: 1998 Screening for malignant neoplasm of colon [facility] Start: 1998 SIGMOIDOSCOPY SIGMOIDOSCOPY [facility] Start: 1972 SHINGRIX VACCINE (1 of 2) SHINGRIX VACCINE (1 of 2) [facility] Start: 1971 Anxiety Screening Anxiety Screening [facility] Start: 1971 Depression Screening Depression Screening [facility] Patient referral [facility] Work Phone: [facility] Immunizations Immunization Date Immunization Notes Care Provider Celia santos 08-26-2024 pneumococcal conjuga te (PCV20) vaccine, 20 valent (PREVNAR 20) Tavares Dupree DO Work Phone: [facility] 08-26-2024 Seasonal trivalent influenza vaccine, adjuvanted, preservative free Tavares Dupree DO Work Phone: [facility] 02-21-2021 COVID-19 vaccine, fu ll dose (MODERNA) Petar Alexander APRN.PUBLIC HEALTH SPECIALIST Work Phone: [facility] 01-24-2021 COVID-19 vaccine, fu ll dose (MODERNA) Petar Alexander BOTTOM PRECIPITATOR OPERATOR.PUBLIC HEALTH SPECIALIST Work Phone: [facility] 08-09-2019 influenza virus vacc ine, unspecified formulation Petar Alexander BOTTOM PRECIPITATOR OPERATOR.PUBLIC HEALTH SPECIALIST Work Phone: [facility] 11-01-2016 pneumococcal polysaccharide vaccine, 23 valent Petar Stubbsenter BOTTOM PRECIPITATOR OPERATOR.PUBLIC HEALTH SPECIALIST Work Phone: [facility] Work Phone: 08-24-2015 influenza, seasonal, injectable Petar Alexander BOTTOM PRECIPITATOR OPERATOR.PUBLIC HEALTH SPECIALIST Work Phone: [facility] 11-17-2009 tetanus toxoid, redu padilla diphtheria toxoid, and acellular pertussis vaccine, adsorbed Petar Alexander BOTTOM PRECIPITATOR OPERATOR.PUBLIC HEALTH SPECIALIST Work Phone: [facility] Payers Date Payer Category Payer Medicare [id number] 2024 Self-pay [id number] 2024 Unknown [id number] 2019 Unknown [employer] PPO [id number] 2019-Present [phone] [address] [place] [address] PPO [id number] 2019 Unknown [id number] 2017 Unknown [id number] 1953 Unknown [id number] Unknown [id number] Unknown [id number] Unknown [id number] Unknown [id number] Social History Date Type Detail Facility Start: 10-25-2017 End: 07-02-2022 Tobacco smoking status MNIS Unknown if ever smoked [facility] Start: 1955 Sex Assigned At Female W [facility] Start: 06-15-2015 Tobacco smoking stat us MNIS Ex-smoker [facility] Start: 11-17-1979 End: 11-17-1999 History of tobacco use Current smoker [facility] Start: 11-17-1979 End: 11-17-1999 History of tobacco use Cigarette Smoker [facility] Start: 07-05-2021 End: 07-04-2022 Alcohol intake Current drinker of alcohol (finding) [facility] Start: 1955 Sex Assigned At Not on file C [facility] Start: 06-15-2015 End: 12-14-2022 Cigarettes smoked current (pack per day) - Reported 0.5 [facility] Start: 06-15-2015 Tobacco use and exposure Smokeless tobacco non-user [facility] Start: 01-22-2021 End: 07-01-2022 Exposure to SARS-CoV-2 (event) Not sure [facility] Start: 07-04-2022 End: 12-14-2022 Tobacco use panel [facility] Adult Depression Screening Assessment 0 [facility] Functional Status Date Assessment Result Facility 07-02-2022 Functional status Ambulates [facility] Work Phone: 07-02-2022 Functional status Tolerates Activity Well [facility] Work Phone: Mental Status Date Assessment Result Facility 07-02-2022 Cognitive function Voice/Name [facility] Work Phone: 07-01-2022 Cognitive function Appropriate;Sid michaels [facility] Work Phone: Clinical Notes 02-21-2021 to 08-10-2024 [...] will contact her PCP. Tammi Blackburn RN [facility] 08-10-2024 Miscellaneous Notes Patients last [...] Petar. Please advise. documented in this encounter [facility] 08-10-2024 Telephone encounter Note Patient called to confirm that she no longer needs to have mammogram. She believes this was discussed last office visit with Petar. Please advise. 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 [...] Sandi Hanks LPN documented in this encounter [facility] 03-05-2022 Miscellaneous Notes Patient has [...] Angie Franz Pss documented in this encounter [facility] 02-21-2021 History of Presen t [...] 2021 2:16 PM documented in this encounter [facility] Evaluation note No assessment inform ation available [facility] Work Phone: Evaluation note Diagnosis Personal history of malignant neoplasm of breast Encounter for screening mammogram for high-risk patient documented [facility] Diagnosis Onset Date Resolution Status Brain TIA acute [facility] Work Phone: Evaluation note* Diagnosis Personal history of malignant neoplasm of breast- Primary [facility] Diagnosis Acute right ankle pain Foot pain, right Pain in limb [facility] Work Phone: Reason for referral (narrative)* Diagnostic Procedure Only (Routine) - Closed Specialty Diagnoses / Procedures Referred By Zoë weiner Referred To Contact [facility] Diagnoses Personal history of malignant neoplasm of breast Encounter for screening mammogram for high-risk patient Procedures YARIEL SCREENING W SALINAS SCREENING BREAST DGTL SALINAS UNI/BILAT ADD ON SCREENING MAMMOGRAPHY BI 2-VIEW BREAST INC Petar Medrano APRN.PUBLIC HEALTH SPECIALIST [address] [place] [address] [facility] [address] [place] [address] Referral ID Status Reason Start Date Expiration Date V isits Requested Visits Authorized Closed Auto-Generate d Referral 07/01/2022 11/16/2022 1 1 [facility] for visit Narrative* Diagnostic Procedure Only (Routine) - Closed Specialty Diagnoses / Procedures Referred By Contac t Referred To Contact [facility] Diagnoses Personal history of malignant neoplasm of breast Encounter for screening mammogram for high-risk patient Procedures YARIEL SCREENING W SALINAS SCREENING BREAST DGTL SALINAS UNI/BILAT ADD ON SCREENING MAMMOGRAPHY BI 2-VIEW BREAST INC Petar Medrano APRN.PUBLIC HEALTH SPECIALIST [address] [place] [address] [facility] [address] [address] Referral ID Status Reason Start Date Expiration Date V isits Requested Visits Authorized Closed Auto-Generate d Referral 07/01/2022 11/16/2022 1 1 [facility] Summary Purpose Family History No Family History Records Found Relationship Condition Age at Onset Recorded Date/T peter sister Disorder of thyroid Unknown mother Disorder of thyroid Unknown Advance Directives No Advanced Directives Records Found Advance Directive Response Recorded Date/ Time Living Will No October 25 1:21pm Power of Rn Residential No October 25, 2017 1:21pm Advance Directive Response Recorded Date/ Time Living Will No July 01 6:40pm Power of Rn Residential No July 01 022 6:40pm Chief Complaint and Reason for Visit Chief Complaint TIA TIA (cardiology) Reason for Visit Brain TIA Chief Complaint TIA TIA (cardiology) TIA (cardiology) Reason for Visit Brain TIA Additional Source Comments INFORMATION SOURCE (unrecogn ized section and content) DATE CREATED AUTHOR [facility]/26/2018 [facility] DATE CREATED AUTHOR AUTHOR'S ORGANIZ ATION 08/13/2024 [facility] DATE CREATED AUTHOR AUTHOR'S ORGANIZ ATION 11/10/2024 [facility] Goals (unrecognized section and content) Goals may [...] or prosecute any alcohol or drug abuse patient.[facility] the event this information is protected by the Federal Confidentiality of Alcohol and Drug Abuse Patient Records regulations: The Federal rules restrict any use of the information to criminally investigate or prosecute any alcohol or drug abuse patient.[facility] the event this information is protected by the Federal Confidentiality of Alcohol and Drug Abuse Patient Records regulations: The Federal rules restrict any use of the information to criminally investigate or prosecute any alcohol or drug abuse patient.[facility] the event this information is protected by the Federal Confidentiality of Alcohol and Drug Abuse Patient Records regulations: The Federal rules restrict any use of the information to criminally investigate or prosecute any alcohol or drug abuse patient.[facility] the event this information is protected by the Federal Confidentiality of Alcohol and Drug Abuse Patient Records regulations: The Federal rules restrict any use of the information to criminally investigate or prosecute any alcohol or drug abuse patient.[facility] Center[facility] the event this information is protected by the Federal Confidentiality of Alcohol and Drug Abuse Patient Records regulations: The Federal rules restrict any use of the information to criminally investigate or prosecute any alcohol or drug abuse patient.[facility] Center[facility] the event this information is protected by the Federal Confidentiality of Alcohol and Drug Abuse Patient Records regulations: The Federal rules restrict any use of the information to criminally investigate or prosecute any alcohol or drug abuse patient.[facility] Reason for Visit (unrecogniz ed section and content) Reason Onset Date Comments Refill Request 03/05/2022 Refill Request 04/04/2022 Reason Comments Refill Request Reason Comments Established Patient Specialty Diagnoses / Procedures Referred By Contac t Referred To Contact Hematology/Oncology / HEMATOLOGY/ONCOLOGY Diagnoses Personal history of malignant neoplasm of breast 1 YR OV/MAMM 07/01/22* Procedures OFFICE/OUTPATIENT ESTABLISHED MOD [facility] 30-39 MIN MD Benjamin Manjarrez Darby, BOTTOM PRECIPITATOR OPERATOR.PUBLIC HEALTH SPECIALIST [address] [place] [address] Referral ID Status Reason Start Date Expiration Date Visits Re quested Visits Authorized [id number] Closed 07/04/2022 11/16/2022 1 1 Reason Comments Patient Question Specialty Diagnoses / Procedures Referred By Contac t Referred To Contact Radiology / [facility] [place] Diagnoses Xr foot and Ankle rm 10 Procedures XR GENERAL 7 Cecil Mazariegos, BOTTOM PRECIPITATOR OPERATOR.PUBLIC HEALTH SPECIALIST [address] [place] [address] [facility] [address] [place] [address] Referral ID Status Reason Start Date Expiration Date Visits Re quested Visits Authorized [id number] Closed 02/21/2021 05/22/2021 99 99 Care Teams (unrecognized sec tion and content) [employer] Library Clerk Relationship Specialty Start Date End Date Tavares Moise MD PCP - General Family Practice 06/12/16 [employer] Library Clerk Relationship Specialty Start Date End Date Tavares Moise MD PCP - General Family Practice 06/12/16 [employer] Library Clerk Relationship Specialty Start Date End Date Tavares [...] MD Primary Care Provider, Attending Provider Active [employer] Library Clerk Relationship Specialty Start Date End Date Tavares Moise MD PCP - [facility] 06/12/16 [employer] Library Clerk Relationship Specialty Start Date End Date Tavares Moise MD PCP - [facility] 06/12/16 [employer] Library Clerk Relationship Specialty Start Date End Date Tavares Moise MD PCP - [facility] 06/12/16 FOR RECORDS PERTAINING TO PATIENTS WHO [...] BE BASED ON THE PRIMARY CLINICAL RECORDS. [employer] provides no warranty or guarantee of the accuracy or completeness of information in this document.
== END | disposition home or self-care (01) ==
LOC: MTLAB 08:03
PROVIDERS: PCP Family Medicine; Referring Provider Family Medicine; Visit Provider Family Medicine
DX: R73.01 Impaired fasting glucose (principal)
CPT/HCPCS: 36415; 83036

== ENCOUNTER → 2025-10-20 | Outpatient (CLI) | payer MEDICARE, OTHER, SELFPAY ==
--- NOTE | 2025-10-20 14:28 | CT_ITS ---
PROCEDURE: CHEST WITHOUT CONTRAST 10/20/2025 REASON FOR EXAM: SOLITARY PULMONARY NODULE TECHNIQUE: Chest CT without contrast. Coronal and Sagittal reconstruction series were provided. One or more dose reduction techniques were used (e.g., Automated exposure control, adjustment of the mA and/or kV according to patient size, use of iterative reconstruction technique RADIATION DOSE SUMMARY: CTDlvol: 8.59 mGy DLP: 324.73 mGycm COMPARISON: The prior PET/CT report of the study dated 10.12.2024 was reviewed. No prior available images. FINDINGS: Right lower lung lobe apical segment dense 1 mm nodule is seen likely old granuloma. No other suspicious-appearing soft tissue pulmonary nodule or mass. There is no focal infiltrate or consolidation. A streaky opacity is present in the lingula which may reflect subsegmental atelectasis and/or parenchymal scarring. Right upper lung lobe fine subpleural reticulations or scarring likely sequelae of prior inflammatory process. Mild bilateral diffuse centrilobular emphysema. There are no pleural effusions. No pneumothorax is seen. No mediastinal or hilar adenopathy is identified. The thyroid is unremarkable. The central airways are patent. The chest wall appears unremarkable. No axillary adenopathy is identified. Right axillary clips of prior intervention are noted. The thoracic aorta demonstrates atheromatous calcification. The heart and pulmonary arteries are of normal size and configuration. There are coronary artery calcifications. No pericardial effusion is identified. No aggressive-appearing osseous lesions are identified. Mild degenerative changes are present in the spine. The included abdominal cuts show cholecystectomy clips. CT/Chest without Contrast IMPRESSION: No acute abnormalities detected. No definite suspicious pulmonary nodules or masses. Diffuse centrilobular emphysema. Reading Location: [place] [address]
--- OUTSIDE RECORDS SUMMARY | 2025-10-20 18:07 | XMS RPT_ITS | CCD ---
Author Organization [facility] Care Team Providers Care District Fire Chief Name Role Phone JESÚS HAYS Unavailable Unavailable Jose Maria ARIZA, Tavares Castanon Primary Care Provider Tavares Moise MD Primary Care Provider Dr. Tavares Moise Primary Care Provider [phone] Andrés Cuellar Emergency Provider Dr. Alondra Balderas Admit Provider Dr. Alondra Balderas Other Provider RAYMUNDO Denton Attending Provider Unavail able Dr. Tavares Hernandez Attending Provider Dr. Penelope Hughes Other Provider Tavares Moise MD Primary Care Provider [phone] Tavares Moise MD Primary Care Physician [phone] Dr. Tavares Moise MD Attending Physician [phone] Tavares Moise MD Referring Provider [phone] Tavares Moise Primary Care Unavailable Lg Varma V Referring Unavailable Lg Varma V Attending Unavailable Tavares Moise Attending Unavailable Tavares Moise Primary Care Unavailable Tavares Moise Referring Unavailable Tavares Moise Attending Unavailable Tavares Moise Primary Care Unavailable Tavares Moise Referring Unavailable Tavares Moise Primary Care Unavailable Tavares Moise Attending Unavailable Medications Current Medications Medication Drug Class(es) [...] once daily. lisinopril 20 mg oral tablet (13 sources) Angiotensin Converting Enzyme Inhibitor Start: 07-01-20 22 take 1 tablet by mouth once daily Start: 12-27-2020 take 2 tablets by mo [facility] once daily lisinopril (ZESTRIL, PRINIVIL) 10 mg [...] Comment on above: Take 1 capsule by [facility] once daily. rosuvastatin calcium 5 mg oral tablet (6 sources) HMG-CoA Reductase Inhibitor Start: 07-01-2022 take 1 tablet by mouth once daily zolpidem tartrate 10 mg oral tablet (13 sources) gamma-Aminobutyric Acid-ergic Agonist Start: 06-28-2015 take 1 tablet by mouth at bedtime as needed Comment on above: Take 1 tablet by bill at bedtime as needed (insomnia). Completed/Discontinued Medications [...] Active Problems Problem Classification Problem Date Documented Date Episodic/Chronic Diabetes mellitus without complication (1 source) Impaired fasting glucose; Translations: [Impaired fasting glucose] Onset: 08-12-2025 Episodic Essential hypertension (1 source) Essential (primary) hypertension; Translations: [Essential (primary) hypertension] Onset: 08-09-2025 Chronic Other connective tissue disease (1 source) Pain in right foot; Translations: [Pain in right foot] 02-21-2021 Episodic Other non-traumatic joint disorders (1 source) Acute ankle pain; Translations: [Pain in right ankle and joints of right foot] 02-21-2021 Episodic Residual codes; unclassified (2 sources) Other specified postprocedural states; Translations: [History of lumpectomy of right breast] 07-01-2022 Episodic Transient cerebral ischemia (8 sources) Transient cerebral ischemia; Translations: [Transient cerebral ischemic attack, unspecified] Chronic Past or Other Problems Problem Classification Problem Date Documented Da te Episodic/Chronic Cancer of breast (9 sources) History of malignant neoplasm of breast; Translations: [Personal history of malignant neoplasm of breast] Onset: 05-26-2014 12-10-2016 Episodic Other lower respiratory disease (1 source) Solitary pulmonary nodule; Translations: [Solitary pulmonary nodule] Onset: 11-08-2024 Episodic Other screening for suspected conditions (not mental disorders or infectious disease) (4 sources) Encounter for screening for malignant neoplasm of colon; Translations: [Patient encounter status] Onset: 10-02-2018 Episodic Results Test Name Value Interpretation Reference Range Facility Hemoglobin A1con 07-29-2025 HbA1c (Bld) [Mass fraction] 6.5 % High <=5.6 [facility] Comment on above: Order Comment: Order Date: 07/28/25 Order Info: [id number] - A1C Comments: elevated glucose Result Comment: Norm al < 5.7 % Prediabetic 5.7 - 6.4 % Diabetic >or= 6.5 % Please note range changes. Performed By: #### L 501.9985 #### [facility] [address] [place], [address] Hemoglobin A1c percentageOrd ered By: Tavares Moise on 07-29-2025 HbA1c (Bld) [Mass fraction] 6.5 % High <5.7 [facility] Comment on above: Normal < 5.7 % Predi abetic 5.7 - 6.4 % Diabetic >or= 6.5 % Please note range changes. Anion gap in Serum or Plasma Ordered By: Tavares Moise on 07-27-2025 Anion gap [Moles/Vol] 9 mmol/L 03-31 [facility] BUN/creatinine ratioOrdered By: Tavares Moise on 07-27-2025 Urea nitrogen/Creatinine [Mass ratio] 20.2 mg/mg High 09-05 [facility] Basic Metabolic Profile (BMP )on 07-27-2025 BUN/CRE 20.2 RATIO High 09-05 [facility] Comment on above: Performed By: #### L 500.2500, L500.4100, L502.0250 #### [facility] [address] [place], [address] Calcium [Mass/Vol] 9.0 mg/dL Normal 7.6-11.0 [facility] Comment on above: Performed By: #### L 500.2500, L500.4100, L502.0250 #### [facility] [address] [place], [address] Chloride [Moles/Vol] 110 mmol/L High 98-108 [facility] Comment on above: Performed By: #### L 500.2500, L500.4100, L502.0250 #### [facility] [address] [place], [address] CO2 [Moles/Vol] 24.1 mmol/L Normal 21.0-32.0 [facility] Comment on above: Performed By: #### L 500.2500, L500.4100, L502.0250 #### [facility] [address] [place], [address] Creatinine [Mass/Vol] 0.94 mg/dL Normal 0.70-1.20 [facility] Comment on above: Performed By: #### L 500.2500, L500.4100, L502.0250 #### [facility] [address] [place], [address] GAP 9 Normal 5-15 [facility] Comment on above: Performed By: #### L 500.2500, L500.4100, L502.0250 #### [facility] [address] [place], [address] GFR/1.73 sq M.predicted among non-blacks MDRD (S/P/Bld) [Vol rate/Area] 65 mL/min/{1.73_m2} Normal >60 [facility] Comment on above: Result Comment: mL/m in/1.73m2 CKD-EPI Creatinine Equation (2020) Performed By: #### L 500.2500, L500.4100, L502.0250 #### [facility] [address] [place], [address] Glucose [Mass/Vol] 128 mg/dL High 70-99 [facility] Comment on above: Performed By: #### L 500.2500, L500.4100, L502.0250 #### [facility] [address] [place], [address] Potassium [Moles/Vol] 4.4 mmol/L Normal 3.3-5.1 [facility] Comment on above: Performed By: #### L 500.2500, L500.4100, L502.0250 #### [facility] [address] [place], [address] Sodium [Moles/Vol] 144 mmol/L Normal 133-145 [facility] Comment on above: Performed By: #### L 500.2500, L500.4100, L502.0250 #### [facility] [address] [place], [address] Urea nitrogen [Mass/Vol] 19 mg/dL Normal 4-19 [facility] Comment on above: Performed By: #### L 500.2500, L500.4100, L502.0250 #### [facility] [address] [place], [place], [address] Calculated very low density lipoprotein (VLDL) cholesterol measurementOrdered By: Tavares Moise on 07-27-2025 Calculated very low density lipoprotein (VLDL) cholesterol measurement 20 mg/dL 5-40 [facility] Carbon dioxide, total [Moles /volume] in Central venous bloodOrdered By: Tavares Moise on 07-27-2025 CO2 [Moles/Vol] 24.1 mmol/L 21.0-32.0 [facility] Chloride assayOrdered By: Panda Moise on 07-27-2025 Chloride [Moles/Vol] 110 mmol/L High 98-108 [facility] Glomerular filtration rate ( GFR) estimation/1.73 sq m using serum, plasma, or whole bOrdered By: Tavares Moise on 07-27-2025 GFR/1.73 sq M.predicted among non-blacks MDRD (S/P/Bld) [Vol rate/Area] 65 mL/min/{1.73_m2} >60 [facility] Comment on above: mL/min/1.73m2 CKD-EP I Creatinine Equation (2020) LDL calc ser/plasOrdered By: Tavares Moise on 07-27-2025 Cholesterol in LDL [Mass/Vol] 77 mg/dL [facility] Comment on above: Yxrlmdicsa=161-682 m g/dL & Higher Dzok=618 mg/dL or greaterFriedwald Equation for LDL-C Lipid Profileon 07-27-2025 CHOL:HDL 2.93 Normal [facility] Comment on above: Performed By: #### L 500.2500, L500.4100, L502.0250 #### [facility] [address] [place], [place], [address] Cholesterol [Mass/Vol] 147 mg/dL Normal <=200 [facility] Comment on above: Result Comment: Chol esterol level, Desirable <200 mg/dL Borderline high cholesterol 200-239 mg/dL High cholesterol >=240 mg/dL Recommendations of the NCEP Adult Treatment Panel for the following risk-cutoff thresholds for the [place] population. Performed By: #### L 500.2500, L500.4100, L502.0250 #### [facility] [address] [place], [address] Cholesterol in HDL [Mass/Vol] 50 mg/dL Normal [facility] Comment on above: Result Comment: Janine onal Cholesterol Education Program (NCEP) guidelines: <40 mg/dL: Low HDL-cholesterol (major risk factor for CHD) >= 60 mg/dL: High HDL-cholesterol (negative risk factor for CHD) HDL-cholesterol is affected by a number of factors, e.g. smoking, exercise, hormones, sex and age. Performed By: #### L 500.2500, L500.4100, L502.0250 #### [facility] [address] [place], [address] Cholesterol in LDL [Mass/Vol] 77 mg/dL Normal [facility] Comment on above: Result Comment: Bord uyzwqx=831-028 mg/dL Higher Tawb=429 mg/dL or greater Friedwald Equation for LDL-C Performed By: #### L 500.2500, L500.4100, L502.0250 #### [facility] [address] [place], [address] Cholesterol in VLDL [Mass/Vol] 20 mg/dL Normal 5-40 [facility] Comment on above: Performed By: #### L 500.2500, L500.4100, L502.0250 #### [facility] [address] [place], [address] Triglyceride [Mass/Vol] 98 mg/dL Normal [facility] Comment on above: Result Comment: The drugs N-Acetylcysteine and Metamizole may falsely depress this assay. Normal range: <150 mg/dL Borderline High: 150-199 mg/dL High: 200-499 mg/dL Very High: >500 mg/dL Performed By: #### L 500.2500, L500.4100, L502.0250 #### [facility] [address] [place], [address] Microalb:Creat Ratio,Random URon 07-27-2025 Creatinine [Mass/Vol] 111.00 mg/dL Normal 28.00-217.00 [facility] Comment on above: Performed By: #### L 500.2500, L500.4100, L502.0250 #### [facility] [address] [place], [address] MALB:CREAT UNABLE TO CALCULATE Normal <30 mg/g CRE [facility] Comment on above: Performed By: #### L 500.2500, L500.4100, L502.0250 #### [facility] [address] [place], [address] MICROALBUMIN,UR < 12.0 Normal <20 mg/L [facility] Comment on above: Performed By: #### L 500.2500, L500.4100, L502.0250 #### [facility] [address] [place], [address] Microalbumin/creat ratio urO rdered By: Tavares Moise on 07-27-2025 Urine microalbumin/creatinin e ratio measurement UNABLE TO CALCULATE mg/g CRE <30 [facility] Potassium measurement (mass/ volume)Ordered By: Tavares Moise on 07-27-2025 Potassium (Unsp spec) [Mass/Vol] 4.4 mmol/L 3.3-5.1 [facility] Random urine creatinine christal urement (mass/volume)Ordered By: Tavares Moise on 07-27-2025 Creatinine Unsp time (U) [Mass/Vol] 111.00 mg/dL 28.00-217.00 [facility] Screening total cholesterol/ high density lipoprotein (HDL) cholesterol ratioOrdered By: Tavares Moise on 07-27-2025 Cholesterol.total/Chol esterol in HDL [Mass ratio] 2.93 {ratio} [facility] Serum creatinine measurement (mass/volume)Ordered By: Tavares Moise on 07-27-2025 Creatinine [Mass/Vol] 0.94 mg/dL 0.70-1.20 [facility] Serum glucose measurement (m ass/volume)Ordered By: Tavares Moise on 07-27-2025 Glucose [Mass/Vol] 128 mg/dL High 70-99 [facility] Serum or plasma calcium christal urement (mass/volume)Ordered By: Tavares Moise on 07-27-2025 Calcium [Mass/Vol] 9.0 mg/dL 7.6-11.0 [facility] Serum or plasma cholesterol in HDL measurement (mass/volume)Ordered By: Tavares Moise on 07-27-2025 Cholesterol in HDL [Mass/Vol] 50 mg/dL >40 [facility] Comment on above: National Cholesterol Education Program (NCEP) guidelines:<40 mg/dL: Low HDL-cholesterol (major risk factor for CHD)>= 60 mg/dL: High HDL-cholesterol (negative risk factor for CHD)HDL-cholesterol is affected by a number of factors, e.g. smoking, exercise, hormones, sex and age. Serum or plasma cholesterol measurement (mass/volume)Ordered By: Tavares Moise on 07-27-2025 Cholesterol [Mass/Vol] 147 mg/dL <201 [facility] Comment on above: Cholesterol level, D esirable <200 mg/dLBorderline high cholesterol 200-239 mg/dLHigh cholesterol >=240 mg/dLRecommendations of the NCEP Adult Treatment Panel for the following risk-cutoff thresholds for the [place] population. Serum or plasma urea nitroge n measurement (mass/volume)Ordered By: Tavares Moise on 07-27-2025 Urea nitrogen [Mass/Vol] 19 mg/dL 4-19 [facility] Sodium levelOrdered By: Tavares Moise on 07-27-2025 Sodium [Moles/Vol] 144 mmol/L 133-145 [facility] Triglycerides measurementOrd ered By: Tavares Moise on 07-27-2025 Triglyceride [Mass/Vol] 98 mg/dL <199 [facility] Comment on above: The drugs N-Acetylcy steine and Metamizole may falsely depress this assay. Normal range: <150 mg/dLBorderline High: 150-199 mg/dLHigh: 200-499 mg/dLVery High: >500 mg/dL Urine albumin measurement wi th detection limit of 20 mg/L or less (mass/volume)Ordered By: Tavares Moise on 07-27-2025 Albumin DL <= 20 mg/L (U) [Mass/Vol] < 12.0 mg/L <20 mg/L [facility] PET/CT Tumor Base -Thigh Ini ton 10-12-2024 PET/CT Tumor Base -Thigh Init [facility] Imaging Services [address] [place], [place] [address] PET/CT Tumor Base -Thigh Init MR#: [id number] Acct: [id number] Name: BRITNEY VANESSA Rep #: [id number] : 1955 F 69 From: Tim Cartwright PCP: Dr. Tavares Moise MD Status: REG CLI Study: PET/CT Tumor Base -Thigh Init Date of Exam: Exam# [id number] Ordering [place]: [place] [id number] EXAMINATION: FDG PET CT HISTORY: 69-year-old female [...] months if clinically indicated. Electronic Signature Tim Bennett D.O. Accurate Quantification of SUVs for this report are calculated using the exclusive [employer]. ([place] Patent No. [id number] [phone] B2 [phone] [place] patent [phone]). Standardization and correction of the FDG SUV metric via ACCUQUAN technology allow for vendor non-specific objective quantitative examination comparison and optimization of the sensitivity and specificity of the FDG PET-CT examination. . [email or web address] Electronically Signed: Tim Bennett DO at 12:31 EST , CC: Dr. Tavares Moise MD; Dr. Lg Varma MD Liquefied Natural [employer] Operator: Signed Normal [facility] Dexa Bone Density Studyon Dexa Bone Density Study [facility] Imaging Services [address] [place], [place] [address] Dexa Bone Density Study MR#: [id number] Acct: [id number] Name: BRITNEY VANESSA Rep #: [id number] : 1955 F 69 From: Jimbo segundo MD PCP: Dr. Tavares Moise MD Status: REG CLI Study: Dexa Bone Density Study Date of Exam: 09/09/24 Exam# [id number] Ordering [place]: [place] [id number] STUDY: DUAL ENERGY X-RAY ABSORPTIOMETRY / DXA [...] EDT , CC: Dr. Tavares Moise MD [employer] Operator: Signed Normal [facility] Low Dose CT Lung Screeningon 09-09-[address] Lung Screening [facility] Imaging Services [address] [place], [place] [address] Low Dose CT Lung Screening MR#: [id number] Acct: [id number] Name: BRITNEY VANESSA Rep #: [id number] : 1955 F 69 From: Jimbo segundo MD PCP: Dr. Tavares Moise MD Status: [facility] Study: Low Dose CT Lung Screening Date of Exam: 09/09 Exam# [id number] Ordering Dr: [place] [id number] STUDY: LOW DOSE CT LUNG CANCER SCREENING [...] Signed: Jimbo Olivo MD at 8:27 EDT , CC: Dr. Tavares Moise MD [employer] Operator: Signed Normal [facility] SCRN MAMM (CAD)W/SALINAS BILATo n 09-09-2024 SCRN MAMM (CAD)W/SALINAS BILAT [facility] Imaging Services [address] [place] [id number] SCRN MAMM (CAD)W/SALINAS BILAT MR#: [id number] Acct: [id number] Name: BRITNEY VANESSA Rep #: [id number] : 1955 F 69 From: Jimbo segundo MD PCP: Dr. Tavares Moise MD Status: [facility] Study: SCRN MAMM (CAD)W/SALINAS BILAT Date of Exam: 08/18 03/10 Exam# [id number] Ordering [place]: [place] [id number] MAMMOGRAPHY - BILATERAL SCREENING REASON FOR EXAM: [...] delay biopsy of a clinically suspicious abnormality. [id number] Electronically Signed: Jimbo Olivo MD at 8:41 EST , CC: Dr. Tavares Moise MD [employer]ied Natural [employer] Operator: Signed Normal [facility] 08-10-2024 [facility] Telephone (ARTURO) BRITNEY VANESSA ([id number]) 1955 F Date Time Provider Department 08/10/24 [...] Date Reviewed: 07/04/2022 Reviewed by: Petar Alexander APRN.SPIRAL WINDING MACHINE HELPER - Fully Assessed Reason for Visit: Patient Question [8855] Prescriptions as of 08/10/2024 - lisinopril (ZESTRIL, [...] Status:Closed by TAMMI BLACKBURN on 08/10/24 Normal [facility] Basophil percentageOrdered B y: Tavares Jose Maria on 08-08-2023 Chloride [Moles/Vol] 112 mmol/L 98-107 [facility] Cholesterol [Mass/Vol] 140 mg/dL <200 [facility] Comment on above: <200 mg/dL Desirable 200-240 mg/dL Borderline >240 mg/dL High Risk Glucose [Mass/Vol] 127 mg/dL 74-106 [facility] Comment on above: Fasting Glucose resu lt greater than or equal to 126 mg/dL suggests DIABETES MELLITUS per A.D.A. criteria. Potassium [Moles/Vol] 4.1 mmol/L 3.5-5.1 [facility] Sodium [Moles/Vol] 143 mmol/L 136-145 [facility] Triglyceride [Mass/Vol] 90 mg/dL <199 [facility] Comment on above: The drugs N-Acetylcy steine and Metamizole may falsely depress this assay.Serum Triglycerides Reference Interval Normal <150 mg/dL Borderline high 150 - 199 mg/dL High 200 - 499 mg/dL Very High > or = 500 mg/dL Laboratory - Chemistry and C hemistry - challengeOrdered By: Tavares Moise on 08-08-2023 CO2 [Moles/Vol] 28.0 mmol/L 21.0-32.0 [facility] Urea nitrogen/Creatinine [Mass ratio] 15.4 mg/mg 10-20 [facility] No Panel InformationOrdered By: Tavares Moise on 08-08-2023 Estimated GFR (MDRD) Amer 73 mL/min >60 [facility] Comment on above: GFR Calc Estimated GFR (MDRD) Non-Af Amer 60 mL/min >60 [facility] Comment on above: Non- GFR Calc Serum or plasma calcium christal urement (mass/volume)Ordered By: Tavares Moise on 08-08-2023 Calcium [Mass/Vol] 8.9 mg/dL 8.5-10.1 [facility] Serum or plasma cholesterol in HDL measurement (mass/volume)Ordered By: Tavares Moise on 08-08-2023 Cholesterol in HDL [Mass/Vol] 44 mg/dL >40 [facility] Comment on above: The drugs N-Acetylcy steine and Metamizole may falsely depress this assay. Reference Range HDL <40 mg/dL Low HDL Cholesterol HDL >or= 60 mg/dL High HDL Cholesterol Serum or plasma cholesterol in VLDL measurement (mass/volume)Ordered By: Tavares Moise on 08-08-2023 Cholesterol in VLDL [Mass/Vol] 18 mg/dL 5-40 [facility] Serum or plasma creatinine m easurement (mass/volume)Ordered By: Tavares Moise on 08-08-2023 Creatinine [Mass/Vol] 0.97 mg/dL 0.55-1.02 [facility] Comment on above: The validity of the calculated GFR & GFRAA in patients over 70 years has not been determined. Clinical correlation is essential. Serum or plasma low density lipoprotein (LDL) cholesterol measurement (mass/volume)Ordered By: Tavares Moise on 08-08-2023 Cholesterol in LDL [Mass/Vol] 78 mg/dL 0-130 [facility] Serum or plasma urea nitroge n measurement (mass/volume)Ordered By: Tavares Moise on 08-08-2023 Urea nitrogen [Mass/Vol] 15 mg/dL 7-18 [facility] Thin prep Papanicolaou smear with manual screeningOrdered By: Tavares Moise on 08-08-2023 Thin prep Papanicolaou smear with manual screening 3 5-15 [facility] Basophil percentageOrdered B y: Dr. Moise on 01-31-2023 Bilirubin [Mass/Vol] 0.40 mg/dL 0.20-1.00 [facility] Comment on above: For patients on eltr ombopag therapy, use of Dimension [place] TBIL is not recommended. Chloride [Moles/Vol] 110 mmol/L 98-107 [facility] Cholesterol [Mass/Vol] 146 mg/dL <200 [facility] Comment on above: <200 mg/dL Desirable 200-240 mg/dL Borderline >240 mg/dL High Risk Glucose [Mass/Vol] 118 mg/dL 74-106 [facility] Comment on above: Fasting Glucose resu lt from 100 to 125 mg/dL suggests IMPAIRED HOMEOSTASIS per A.D.A. criteria. Potassium [Moles/Vol] 4.8 mmol/L 3.5-5.1 [facility] Protein [Mass/Vol] 6.2 g/dL 6.4-8.2 [facility] Sodium [Moles/Vol] 143 mmol/L 136-145 [facility] Triglyceride [Mass/Vol] 103 mg/dL <199 [facility] Comment on above: The drugs N-Acetylcy steine and Metamizole may falsely depress this assay.Serum Triglycerides Reference Interval Normal <150 mg/dL Borderline high 150 - 199 mg/dL High 200 - 499 mg/dL Very High > or = 500 mg/dL Laboratory - Chemistry and C hemistry - challengeOrdered By: Dr. Moise on 01-31-2023 ALP [Catalytic activity/Vol] 92 U/L 45-117 [facility] ALT [Catalytic activity/Vol] 25 U/L 13-56 [facility] CO2 [Moles/Vol] 28.0 mmol/L 21.0-32.0 [facility] Globulin (S) [Mass/Vol] 2.6 g/dL 2.2-4.2 [facility] Urea nitrogen/Creatinine [Mass ratio] 20.0 mg/mg 10-20 [facility] No Panel InformationOrdered By: Dr. Moise on 01-31-2023 Estimated GFR (MDRD) Amer 71 mL/min >60 [facility] Comment on above: GFR Calc Estimated GFR (MDRD) Non-Af Amer 58 mL/min >60 [facility] Comment on above: Non- GFR Calc Serum or plasma albumin christal urement (mass/volume)Ordered By: Dr. Moise on 01-31-2023 Albumin [Mass/Vol] 3.6 g/dL 3.2-5.0 [facility] Serum or plasma albumin/glob ulin mass ratioOrdered By: Dr. Moise on 01-31-2023 Albumin/Globulin [Mass ratio] 1.4 {ratio} 0.9-2.4 [facility] Serum or plasma calcium christal urement (mass/volume)Ordered By: Dr. Moise on 01-31-2023 Calcium [Mass/Vol] 9.2 mg/dL 8.5-10.1 [facility] Serum or plasma cholesterol in HDL measurement (mass/volume)Ordered By: Dr. Moise on 01-31-2023 Cholesterol in HDL [Mass/Vol] 51 mg/dL >40 [facility] Comment on above: The drugs N-Acetylcy steine and Metamizole may falsely depress this assay. Reference Range HDL <40 mg/dL Low HDL Cholesterol HDL >or= 60 mg/dL High HDL Cholesterol Serum or plasma cholesterol in VLDL measurement (mass/volume)Ordered By: Dr. Moise on 01-31-2023 Cholesterol in VLDL [Mass/Vol] 21 mg/dL 5-40 [facility] Serum or plasma creatinine m easurement (mass/volume)Ordered By: Dr. Moise on 01-31-2023 Creatinine [Mass/Vol] 1.00 mg/dL 0.55-1.02 [facility] Comment on above: The validity of the calculated GFR & GFRAA in patients over 70 years has not been determined. Clinical correlation is essential. Serum or plasma low density lipoprotein (LDL) cholesterol measurement (mass/volume)Ordered By: Dr. Moise on 01-31-2023 Cholesterol in LDL [Mass/Vol] 74 mg/dL 0-130 [facility] Serum or plasma urea nitroge n measurement (mass/volume)Ordered By: Dr. Moise on 01-31-2023 Urea nitrogen [Mass/Vol] 20 mg/dL 7-18 [facility] Thin prep Papanicolaou smear with manual screeningOrdered By: Dr. Moise on 01-31-2023 Thin prep Papanicolaou smear with manual screening 19 U/L 15-37 [facility] Thin prep Papanicolaou smear with manual screening 5 5-15 [facility] Absolute lymphocyte counton 07-02-2022 Lymphocytes Auto (Unsp spec) [#/Vol] 2.41 10*3/uL 0.83-4.51 [facility] Work Phone: Basophil percentageon 2021 Basophil percentage 4.6 mg/dL 2.5-4.9 [facility] Work Phone: Basophils/100 WBC (Bld) 0.3 % 0-1 [facility] Work Phone: Bilirubin [Mass/Vol] 0.20 mg/dL 0.20-1.00 [facility] Work Phone: Comment on above: For patients on eltr ombopag therapy, use of Dimension [place] TBIL is not recommended. Chloride [Moles/Vol] 113 mmol/L 98-107 [facility] Work Phone: Cholesterol [Mass/Vol] 130 mg/dL <200 [facility] Work Phone: Comment on above: <200 mg/dL Desirable 200-240 mg/dL Borderline >240 mg/dL High Risk Eosinophils/100 WBC (Bld) 1.4 % 0-5 [facility] Work Phone: Glucose [Mass/Vol] 104 mg/dL 74-106 [facility] Work Phone: Comment on above: Fasting Glucose resu lt from 100 to 125 mg/dL suggests IMPAIRED HOMEOSTASIS per A.D.A. criteria. Neutrophils (Bld) [#/Vol] 3.4 10*3/uL 2.0-7.7 [facility] Work Phone: Neutrophils/100 WBC (Bld) 52.1 % 47-70 [facility] Work Phone: Potassium [Moles/Vol] 3.9 mmol/L 3.5-5.1 [facility] Work Phone: Protein [Mass/Vol] 5.7 g/dL 6.4-8.2 [facility] Work Phone: Sodium [Moles/Vol] 144 mmol/L 136-145 [facility] Work Phone: Triglyceride [Mass/Vol] 116 mg/dL <199 [facility] Work Phone: Comment on above: The drugs N-Acetylcy steine and Metamizole may falsely depress this assay.Serum Triglycerides Reference Interval Normal <150 mg/dL Borderline high 150 - 199 mg/dL High 200 - 499 mg/dL Very High > or = 500 mg/dL WBC (Bld) [#/Vol] 6.5 10*3/uL 4.4-11.0 [facility] Work Phone: Blood erythrocytes count (nu mber/volume)on 07-02-2022 RBC (Bld) [#/Vol] 4.17 10*6/uL 4.2-5.4 [facility] Work Phone: Blood hemoglobin measurement (mass/volume)on 07-02-2022 Hemoglobin (Bld) [Mass/Vol] 12.8 g/dL 12.0-15.0 [facility] Work Phone: Blood lymphocytes/100 leukoc yteson 07-02-2022 Lymphocytes/100 WBC (Bld) 37.0 % 19-41 [facility] Work Phone: Blood monocytes/100 leukocyt eson 07-02-2022 Monocytes/100 WBC (Bld) 8.9 % 0-10 [facility] Work Phone: Blood platelet mean volumeon 07-02-2022 Platelet mean volume (Bld) [Entitic vol] 9.3 fL 6.2-12.0 [facility] Work Phone: Determination of erythrocyte mean corpuscular volume (MCV)on 07-02-2022 MCV (RBC) [Entitic vol] 96.4 fL 81-99 [facility] Work Phone: Hematocrit Auto (Bld) [Volum e fraction]on 07-02-2022 Hematocrit (Bld) [Volume fraction] 40.2 % 37-47 [facility] Work Phone: Laboratory - Chemistry and C hemistry - challengeon 07-02-2022 ALP [Catalytic activity/Vol] 83 U/L 45-117 [facility] Work Phone: ALT [Catalytic activity/Vol] 30 U/L 13-56 [facility] Work Phone: CO2 [Moles/Vol] 26.0 mmol/L 21.0-32.0 [facility] Work Phone: Globulin (S) [Mass/Vol] 2.7 g/dL 2.2-4.2 [facility] Work Phone: Magnesium [Mass/Vol] 2.1 mg/dL 1.6-2.6 [facility] Work Phone: Urea nitrogen/Creatinine [Mass ratio] 19.2 mg/mg 10-20 [facility] Work Phone: Laboratory - Hematology and Cell countson 07-02-2022 Erythrocyte distribution width (RBC) [Entitic vol] 46.6 fL 35.1-43.9 [facility] Work Phone: Erythrocyte distribution width (RBC) [Ratio] 13.1 % 11.6-14.6 [facility] Work Phone: Immature granulocytes/100 WBC (Bld) 0.300 % 0.0-0.9 [facility] Work Phone: Comment on above: IG% - Immature Granu locytes (promyelocytes, myelocytes and metamyelocytes) > 1% indicates that a LEFT SHIFT is Present. MCH (RBC) [Entitic mass] 30.7 pg 27.0-32.0 [facility] Work Phone: Nucleated RBC/100 WBC (Bld) [Ratio] 0 % 0-5 [facility] Work Phone: MCHC Auto (RBC) [Mass/Vol]on 07-02-2022 MCHC (RBC) [Mass/Vol] 31.8 g/dL 32-36 [facility] Work Phone: No Panel Informationon 07-02 Estimated Creatinine Clearance Calc 48.95 ml/min [facility] Work Phone: Estimated GFR (MDRD) Amer 87 mL/min >60 [facility] Work Phone: Comment on above: GFR Calc Estimated GFR (MDRD) Non-Af Amer 72 mL/min >60 [facility] Work Phone: Comment on above: Non- GFR Calc Thyroid Stimulating Hormone (TSH) 2.83 uIU/mL 0.358-3.74 [facility] Work Phone: Platelets bldon 07-02-2022 Platelets (Bld) [#/Vol] 266 10*3/uL 150-450 [facility] Work Phone: Serum or plasma albumin christal urement (mass/volume)on 07-02-2022 Albumin [Mass/Vol] 3.0 g/dL 3.2-5.0 [facility] Work Phone: Serum or plasma albumin/glob ulin mass ratioon 07-02-2022 Albumin/Globulin [Mass ratio] 1.1 {ratio} 0.9-2.4 [facility] Work Phone: Serum or plasma calcium hcristal urement (mass/volume)on 07-02-2022 Calcium [Mass/Vol] 8.5 mg/dL 8.5-10.1 [facility] Work Phone: Serum or plasma cholesterol in HDL measurement (mass/volume)on 07-02-2022 Cholesterol in HDL [Mass/Vol] 41 mg/dL >40 [facility] Work Phone: Comment on above: The drugs N-Acetylcy steine and Metamizole may falsely depress this assay. Reference Range HDL <40 mg/dL Low HDL Cholesterol HDL >or= 60 mg/dL High HDL Cholesterol Serum or plasma cholesterol in VLDL measurement (mass/volume)on 07-02-2022 Cholesterol in VLDL [Mass/Vol] 23 mg/dL 5-40 [facility] Work Phone: Serum or plasma creatinine m easurement (mass/volume)on 07-02-2022 Creatinine [Mass/Vol] 0.83 mg/dL 0.55-1.02 [facility] Work Phone: Comment on above: The validity of the calculated GFR & GFRAA in patients over 70 years has not been determined. Clinical correlation is essential. Serum or plasma low density lipoprotein (LDL) cholesterol measurement (mass/volume)on 07-02-2022 Cholesterol in LDL [Mass/Vol] 66 mg/dL 0-130 [facility] Work Phone: Serum or plasma urea nitroge n measurement (mass/volume)on 07-02-2022 Urea nitrogen [Mass/Vol] 16 mg/dL 7-18 [facility] Work Phone: Thin prep Papanicolaou smear with manual screeningon 07-02-2022 Thin prep Papanicolaou smear with manual screening 16 U/L 15-37 [facility] Work Phone: Thin prep Papanicolaou smear with manual screening 5 5-15 [facility] Work Phone: Whole blood hemoglobin A1c/t otal hemoglobin ratio (mass fraction)on 07-02-2022 HbA1c (Bld) [Mass fraction] 6.2 % 3.8-5.6 [facility] Work Phone: Comment on above: Normal < 5.7 % Predi abetic 5.7 - 6.4 % Diabetic >or= 6.5 % Please note range changes. Absolute lymphocyte counton 07-01-2022 Lymphocytes Auto (Unsp spec) [#/Vol] 2.15 10*3/uL 0.83-4.51 [facility] Work Phone: Basophil percentageon 2021 Basophils/100 WBC (Bld) 0.2 % 0-1 [facility] Work Phone: [phone] Chloride [Moles/Vol] 112 mmol/L 98-107 [facility]: Eosinophils/100 WBC (Bld) 0.9 % 0-5 [facility] Work Phone: [phone] Glucose [Mass/Vol] 114 mg/dL 74-106 [facility] Work Phone: [phone] Comment on above: Fasting Glucose resu lt from 100 to 125 mg/dL suggests IMPAIRED HOMEOSTASIS per A.D.A. criteria. Neutrophils (Bld) [#/Vol] 5.2 10*3/uL 2.0-7.7 [facility] Work Phone: [phone] Neutrophils/100 WBC (Bld) 63.8 % 47-70 [facility] Work Phone: [phone] Potassium [Moles/Vol] 3.9 mmol/L 3.5-5.1 [facility] Work Phone: [phone] Sodium [Moles/Vol] 143 mmol/L 136-145 [facility] Work Phone: [phone] WBC (Bld) [#/Vol] 8.1 10*3/uL 4.4-11.0 [facility] Work Phone: [phone] Blood erythrocytes count (nu mber/volume)on 07-01-2022 RBC (Bld) [#/Vol] 4.41 10*6/uL 4.2-5.4 [facility] Work Phone: [phone] Blood hemoglobin measurement (mass/volume)on 07-01-2022 Hemoglobin (Bld) [Mass/Vol] 13.7 g/dL 12.0-15.0 [facility] Work Phone: Blood lymphocytes/100 leukoc yteson 07-01-2022 Lymphocytes/100 WBC (Bld) 26.6 % 19-41 [facility] Work Phone: Blood monocytes/100 leukocyt eson 07-01-2022 Monocytes/100 WBC (Bld) 8.3 % 0-10 [facility] Work Phone: Blood platelet mean volumeon 07-01-2022 Platelet mean volume (Bld) [Entitic vol] 9.2 fL 6.2-12.0 [facility] Work Phone: Determination of erythrocyte mean corpuscular volume (MCV)on 07-01-2022 MCV (RBC) [Entitic vol] 95.0 fL 81-99 [facility] Work Phone: Glucose Glucometer (BldC) [M ass/Vol]on 07-01-2022 Glucose [Mass/Vol] 117 mg/dL 74-106 [facility] Work Phone: Comment on above: MANAGEMENT OF PATIEN T CARE PER NURSING PROTOCOL Hematocrit Auto (Bld) [Volum e fraction]on 07-01-2022 Hematocrit (Bld) [Volume fraction] 41.9 % 37-47 [facility] Work Phone: INR in Blood by Coagulation assayon 07-01-2022 INR Coag (Bld) [Relative time] 1.0 {INR} [facility] Work Phone: Laboratory - Chemistry and C hemistry - challengeon 07-01-2022 CO2 [Moles/Vol] 27.0 mmol/L 21.0-32.0 [facility] Work Phone: Urea nitrogen/Creatinine [Mass ratio] 21.0 mg/mg 10-20 [facility] Work Phone: Laboratory - Coagulationon 0 07-01-2022 aPTT Coag (Bld) [Time] 23.9 s 24.1-36.2 [facility] Work Phone: PT Coag (PPP) [Time] 12.4 s 11.7-14.9 [facility] Work Phone: Laboratory - Hematology and Cell countson 07-01-2022 Erythrocyte distribution width (RBC) [Entitic vol] 45.6 fL 35.1-43.9 [facility] Work Phone: Erythrocyte distribution width (RBC) [Ratio] 13.0 % 11.6-14.6 [facility] Work Phone: Immature granulocytes/100 WBC (Bld) 0.200 % 0.0-0.9 [facility] Work Phone: Comment on above: IG% - Immature Granu locytes (promyelocytes, myelocytes and metamyelocytes) > 1% indicates that a LEFT SHIFT is Present. MCH (RBC) [Entitic mass] 31.1 pg 27.0-32.0 [facility] Work Phone: Nucleated RBC/100 WBC (Bld) [Ratio] 0 % 0-5 [facility] Work Phone: YARIEL SCREENING W TOMOon 07-01 [facility] MCHC Auto (RBC) [Mass/Vol]on 07-01-2022 MCHC (RBC) [Mass/Vol] 32.7 g/dL 32-36 [facility] Work Phone: No Panel Informationon 07-01 Estimated Creatinine Clearance Calc 27.68 ml/min [facility] Work Phone: Estimated GFR (MDRD) Amer 97 mL/min >60 [facility] Work Phone: Comment on above: GFR Calc Estimated GFR (MDRD) Non-Af Amer 80 mL/min >60 [facility] Work Phone: Comment on above: Non- GFR Calc Troponin I High Sensitivity 6 pg/mL 3.0-54.0 [facility] Work Phone: Comment on above: Please Note: New Debra t Units and Gender Specific Reference Ranges. For more information see Policy Stat Procedure [place] High Sensitivity Troponin (TNIH) and attachments. Platelets bldon 07-01-2022 Platelets (Bld) [#/Vol] 293 10*3/uL 150-450 [facility] Work Phone: Serum or plasma calcium christal urement (mass/volume)on 07-01-2022 Calcium [Mass/Vol] 8.8 mg/dL 8.5-10.1 [facility] Work Phone: Serum or plasma creatinine m easurement (mass/volume)on 07-01-2022 Creatinine [Mass/Vol] 0.76 mg/dL 0.55-1.02 [facility] Work Phone: Comment on above: The validity of the calculated GFR & GFRAA in patients over 70 years has not been determined. Clinical correlation is essential. Serum or plasma urea nitroge n measurement (mass/volume)on 07-01-2022 Urea nitrogen [Mass/Vol] 16 mg/dL 7-18 [facility] Work Phone: Thin prep Papanicolaou smear with manual screeningon 07-01-2022 Thin prep Papanicolaou smear with manual screening 4 - [facility] Work Phone: Basophil percentageon 2021 Chloride [Moles/Vol] 112 mmol/L 98-107 [facility] Work Phone: Cholesterol [Mass/Vol] 225 mg/dL <200 [facility] Work Phone: Comment on above: <200 mg/dL Desirable 200-240 mg/dL Borderline >240 mg/dL High Risk Glucose [Mass/Vol] 124 mg/dL 74-106 [facility] Work Phone: Comment on above: Fasting Glucose resu lt from 100 to 125 mg/dL suggests IMPAIRED HOMEOSTASIS per A.D.A. criteria. Potassium [Moles/Vol] 4.0 mmol/L 3.5-5.1 [facility] Work Phone: Sodium [Moles/Vol] 142 mmol/L 136-145 [facility] Work Phone: Triglyceride [Mass/Vol] 123 mg/dL [facility] Work Phone: Comment on above: The drugs N-Acetylcy steine and Metamizole may falsely depress this assay.Serum Triglycerides Reference Interval Normal <150 mg/dL Borderline high 150 - 199 mg/dL High 200 - 499 mg/dL Very High > or = 500 mg/dL Laboratory - Chemistry and C hemistry - challengeon 02-04-2022 CO2 [Moles/Vol] 25.0 mmol/L 21.0-32.0 [facility] Work Phone: Urea nitrogen/Creatinine [Mass ratio] 17.6 mg/mg 10-20 [facility] Work Phone: No Panel Informationon 02-04 Estimated GFR (MDRD) Amer 85 mL/min >60 [facility] Work Phone: Comment on above: GFR Calc Estimated GFR (MDRD) Non-Af Amer 71 mL/min >60 [facility] Work Phone: Comment on above: Non- GFR Calc Thyroid Stimulating Hormone (TSH) 3.10 uIU/mL 0.358-3.74 [facility] Work Phone: Serum or plasma calcium christal urement (mass/volume)on 02-04-2022 Calcium [Mass/Vol] 8.9 mg/dL 8.5-10.1 [facility] Work Phone: Serum or plasma cholesterol in HDL measurement (mass/volume)on 02-04-2022 Cholesterol in HDL [Mass/Vol] 49 mg/dL [facility] Work Phone: Comment on above: The drugs N-Acetylcy steine and Metamizole may falsely depress this assay. Reference Range HDL <40 mg/dL Low HDL Cholesterol HDL >or= 60 mg/dL High HDL Cholesterol Serum or plasma cholesterol in VLDL measurement (mass/volume)on 02-04-2022 Cholesterol in VLDL [Mass/Vol] 25 mg/dL 5-40 [facility] Work Phone: Serum or plasma creatinine m easurement (mass/volume)on 02-04-2022 Creatinine [Mass/Vol] 0.85 mg/dL 0.55-1.02 [facility] Work Phone: Comment on above: The validity of the calculated GFR & GFRAA in patients over 70 years has not been determined. Clinical correlation is essential. Serum or plasma low density lipoprotein (LDL) cholesterol measurement (mass/volume)on 02-04-2022 Cholesterol in LDL [Mass/Vol] 151 mg/dL 0-130 [facility] Work Phone: Serum or plasma urea nitroge n measurement (mass/volume)on 02-04-2022 Urea nitrogen [Mass/Vol] 15 mg/dL 7-18 [facility] Work Phone: Thin prep Papanicolaou smear with manual screeningon 02-04-2022 Thin prep Papanicolaou smear with manual screening 5 5-15 [facility] Work Phone: No Panel Informationon 02-21 IMPRESSION: No radiographic evidence of acute osseous injury. [employer] Operator: REX Transcribe Date/Time: Feb 21 2021 2:17P [...] joint degenerative changes. DIVISION OF RADIOLOGY Provider, [facility] - 02/21/2021 * * *Final Report* [...] No radiographic evidence of acute osseous injury. [employer] Operator: REX Transcribe Date/Time: Feb 21 2021 2:17P Dictated by : ANITA SCHULTZ MD This examination was interpreted and the report reviewed and electronically signed by: ANITA SCHULTZ MD on Feb 21 2021 2:28PM [facility] XR Foot - right AP and [...] joint degenerative changes. DIVISION OF RADIOLOGY Provider, [facility] - 02/21/2021 * * *Final Report* [...] No radiographic evidence of acute osseous injury. [employer] Operator: REX Transcribe Date/Time: Feb 21 2021 2:17P Dictated by : ANITA SCHULTZ MD This examination was interpreted and the report reviewed and electronically signed by: ANITA SCHULTZ MD on Feb 21 2021 2:28PM EST [facility] Final Surgical Pathology Rep [facility] 10-06-2018 Final Surgical Pathology Report . Pathology ReportsAccession: Collected Date/Time: Received Date/Time: Pathologist:[id number] 23 10/02/2018 14:15 EST 10/05/2018 14:15 EST DO CYNTHIA CARTER Final Surgical Pathology ReportDIAGNOSIS:SERRATE D POLYP, TRANSVERSE COLON.CLINICAL INFORMATION:SCREENINGSP ECIMEN:A TRANSVERSE COLON POLYPGROSS DESCRIPTION:Received in formalin labeled transverse colon polyp is a 0.6 cm pale villatoro soft tissue fragment and a moderate amount of debris. TS -1Dictated by Anitra BARCENAS (ASCP)MICROSCOPIC DESCRIPTION:Slides reviewed.Electronically Signed byPathology Report verified [facility] signed by CYNTHIA Arriaza out Date: 10/06/2018 13:57Performing Lab: [facility], [address] [place] [id number] [facility] ([place]) Comment on above: Performed By: #### S PFR ####[facility] [place] [id number] Vital Signs Date Time Vital Sign Value Performing Clinician Facility 07-04-2022 10:02-0400 Body height 153.3 cm Petar Alexander MICA MINER.[employer]ING MACHINE HELPER Work Phone: [facility] 07-04-2022 10:02-0400 Body temperature 98.71 [degF] Petar Alexander [employer]ICA MINER.SP[employer] WINDING MACHINE HELPER Work Phone: [facility] 07-04-2022 10:02-0400 Body weight 70.31 kg Petar Alexander [employer]ICA MINER.[employer] W[employer]ING MACHINE HELPER Work Phone: [facility] 07-04-2022 10:02-0400 Diastolic blood pressure 93 mm[Hg] Petar Alexander MICA MINER.SPIRAL WINDING MACHINE HELPER Work Phone: [facility] 07-04-2022 10:02-0400 Heart rate 80 /min Petar Alexander MICA MINER.[employer] W[employer]ING MACHINE HELPER Work Phone: [facility] 07-04-2022 10:02-0400 SaO2% (BldA) [Mass fraction] 96 % Petar Alexander MICA MINER.SPIR[employer] WINDING MACHINE HELPER Work Phone: [facility] 07-04-2022 10:02-0400 Systolic blood pressure 139 mm[Hg] Petar Alexander MICA MINER.SP[employer] WINDING MACHINE HELPER Work Phone: [facility] 07-02-2022 16:27-0400 Body mass index (BMI) [Ratio] 29 kg/m2 Dr. Tavares Moise Work Phone: [facility] Work Phone: 07-02-2022 15:00-0400 Body temperature 98.1 [degF] Dr. Tavares Moise Work Phone: [facility] Work Phone: 07-02-2022 15:00-0400 Diastolic blood pressure 70 mm[Hg] Dr. Tavares Moise Work Phone: [facility] Work Phone: 07-02-2022 15:00-0400 Heart rate 72 /min Dr. Tavares Moise Work Phone: [facility] Work Phone: 07-02-2022 15:00-0400 Respiratory rate 18 /min Dr. Tavares Moise Work Phone: [facility] Work Phone: 07-02-2022 15:00-0400 SaO2% (BldA) [Mass fraction] 98 % Dr. Tavares Moise Work Phone: [facility] Work Phone: 07-02-2022 15:00-0400 Systolic blood pressure 144 mm[Hg] Dr. Tavares Moise Work Phone: [facility] Work Phone: 07-01-2022 18:36-0400 Body height 154.[address] Tavares Moise Work Phone: [facility] Work Phone: 07-01-2022 18:36-0400 Body weight 69.[address] Tavares Moise Work Phone: [facility] Work Phone: 07-01-2022 18:13-0400 Body temperature 98 [degF] Dr. Tavares Moise Work Phone: [facility] Work Phone: 07-01-2022 18:13-0400 Diastolic blood pressure 96 mm[Hg] Dr. Tavares Moise Work Phone: [facility] Work Phone: 07-01-2022 18:13-0400 Heart rate 70 /min Dr. Tavares Moise Work Phone: [facility] Work Phone: 07-01-2022 18:13-0400 Respiratory rate 18 /min Dr. Tavares Moise Work Phone: [facility] Work Phone: 07-01-2022 18:13-0400 SaO2% (BldA) [Mass fraction] 95 % Dr. Tavares Moise Work Phone: [facility] Work Phone: 07-01-2022 18:13-0400 Systolic blood pressure 141 mm[Hg] Dr. Tavares Moise Work Phone: [facility] Work Phone: 07-01-2022 15:54-0400 Body height 152.[address] Tavares Moise Work Phone: [facility] Work Phone: 07-01-2022 15:54-0400 Body mass index (BMI) [Ratio] 14 kg/m2 Dr. Tavares Moise Work Phone: [facility] Work Phone: 07-01-2022 15:54-0400 Body weight 32.[address] Tavares Moise Work Phone: [facility] Work Phone: Encounters Encounter Date Encounter Type Care Provider Facility Start: 07-29-2025 End: 07-29-[address] Tavares Moise MD Work Phone: [facility] Start: 07-29-2025 End: 07-29-[address] Tavares Moise MD [facility] Work Phone: Start: 07-29-2025 End: 07-29-2025 ambulatory Tavares Moise Facility:[facility] Start: 07-27-2025 End: 07-27-[address] Tavares Moise MD Work Phone: -[facility] Start: 07-27-2025 End: 07-27-[address] Tavares Moise MD -[facility] Work Phone: Start: 07-27-2025 End: 07-27-2025 ambulatory Tavares Moise Facility:[facility] Start: 10-12-2024 End: 10-12-2024 ambulatory Tavares Moise Facility:[facility] Start: 09-09-2024 End: 09-09-2024 ambulatory Tavares Moise Facility:[facility] Start: 08-27-2024 End: 08-27-2024 Chart abstracting Tavares Dupree DO Work Phone: Hematology/Oncology Start: 08-10-2024 End: 08-10-2024 Telephone encounter Petar Alexander APRN.[employer]ING MACHINE HELPER Work Phone: Hematology/Oncology Comment on above: Patient Question Start: 08-08-2023 End: 08-08-2023 ambulatory [facility] Work Phone: Start: 08-08-2023 End: 08-08-2023 Patient encounter procedure [facility] Start: 01-31-2023 End: 01-31-2023 ambulatory [facility] Work Phone: Start: 01-31-2023 End: 01-31-2023 Patient encounter procedure [facility] Start: 07-04-2022 End: 07-04-2022 ambulatory Petar Alexander MICA MINER.[employer] WINDING MACHINE HELPER Work Phone: Hematology/Oncology Comment on above: Personal history of malignant neoplasm of breast (Primary Dx) Start: 07-04-2022 End: 07-04-2022 Patient encounter procedure Talmage Alexander MICA MINER.SPIRAL WINDING MACHINE HELPER Work Phone: [facility] Start: 07-02-2022 Non-patient / Non-visit Dr. Panda Moise Work Phone: [facility] Start: 07-02-2022 Non-patient / Non-visit Dr. Panda Moise Work Phone: [facility] Start: 07-01-2022 Non-patient / Non-visit Dr. Panda Moise Work Phone: [facility] Start: 07-01-2022 End: 07-02-2022 Evaluation and management of inpatient Dr. Tavares Moise Work Phone: [facility] Start: 07-01-2022 End: 07-01-2022 Subsequent hospital visit by physician Screen Mammo [facility] Comment on above: Personal history of malignant neoplasm of breast [Z85.3] Start: 05-12-2022 Refill Talmage Evelyneente r MICA MINER.SPIRAL WINDING MACHINE HELPER Work Phone: Hematology/Oncology Comment on above: Refill Request Start: 03-05-2022 Refill Petar Carpente r MICA MINER.SPIRAL WINDING MACHINE HELPER Work Phone: Hematology/Oncology Comment on above: Refill Request; Refi ll Request Start: 02-13-2022 End: 02-13-2022 Patient encounter procedure [facility] Start: 02-04-2022 End: 02-04-2022 Patient encounter procedure [facility] Start: 02-21-2021 End: 02-21-2021 Subsequent hospital visit by physician [facility] Work Phone: Radiology Comment on above: Acute right ankle pa in [M25.571] Start: 10-02-2018 End: 10-07-2018 [facility] Facility:A Procedures Date Procedure Procedure Detail Performing Clinician Start: 07-01-2022 MRI of brain without contrast Dr. Tavares Moise Work Phone: Start: 07-01-2022 Plain chest X-ray Dr. Rosa Moise Work Phone: Start: 07-01-2022 CT angiography of he ad and neck Dr. Tavares Moise Work Phone: Start: 07-01-2022 CT of head without contrast Dr. Tavares Moise Work Phone: Start: 07-01-2022 YARIEL SCREENING W SALINAS Godfrey MICA MINER.SPIRAL WINDING MACHINE HELPER Work Phone: Start: 07-01-2022 Mammography Screen Wst r Start: 06-29-2021 Mammography Petar michael MICA MINER.SPIRAL WINDING MACHINE HELPER Work Phone: Start: 02-21-2021 Radex ankle complete minimum 3 views Cecil Yair MICA MINER.SPIRAL WINDING MACHINE HELPER Work Phone: Start: 06-18-2019 Adult depression screening assessment Petar Stubbsenter MICA MINER.SPIRAL WINDING MACHINE HELPER Work Phone: Start: 06-25-2014 Lipid 1996 panel - S derrick or Plasma Petar Stubbsenter MICA MINER.SPIRAL WINDING MACHINE HELPER Work Phone: Start: 11-17-2012 Colonoscopy Petar Stubbs fernanda MICA MINER.SPIRAL WINDING MACHINE HELPER Work Phone: H/O: surgery History of lum[facility] Start: 07-18-2024 Influenza vaccination Influenza Vaccine (#1) [facility] Start: 11-17-2023 Advance Directive Discussion Advance Directive Discussion [facility] Start: 09-11-2023 Pneumococcal Vaccine: 65+ (3 of 3 - PPSV23 or PCV20) Pneumococcal Vaccine: 65+ (3 of 3 - PPSV23 or PCV20) [facility] Start: 07-01-2023 Mammography MAMMOGRAM [facility] Start: 07-01-2023 Screening for malignant neoplasm of breast Mammogram Screening [facility] Start: 07-18-2022 Influenza vaccination [facility] Start: 07-02-2022 Patient discharge [facility] Work Phone: Start: 07-02-2022 [facility] Work Phone: Start: 07-01-2022 Application of intermittent pneumatic compression device [facility] Work Phone: Start: 07-01-2022 Assessment of risk of venous thromboembolism [facility] Work Phone: Start: 07-01-2022 Cardiac monitoring [facility] Work Phone: Start: 07-01-2022 Catheterization of vein [facility] Work Phone: Start: 07-01-2022 Elevation of head of bed [facility] Work Phone: Start: 07-01-2022 Exercises [facility] Work Phone: Start: 07-01-2022 Implementation of planned interventions [facility] Work Phone: Start: 07-01-2022 Incentive spirometry [facility] Work Phone: Start: 07-01-2022 Insertion of catheter into peripheral vein [facility] Work Phone: Start: 07-01-2022 Measuring intake and output [facility] Work Phone: Start: 07-01-2022 Notification of physician [facility] Work Phone: Start: 07-01-2022 Oxygen therapy [facility] Work Phone: Start: 07-01-2022 Providing care according to standard [facility] Work Phone: Start: 07-01-2022 Provision of activity privileges [facility] Work Phone: Start: 07-01-2022 Referral to occupational therapist [facility] Work Phone: Start: 07-01-2022 Referral to service [facility] Work Phone: Start: 07-01-2022 Speech therapy assessment [facility] Work Phone: Start: 07-01-2022 Tobacco use cessation education [facility] Work Phone: Start: 07-01-2022 [facility] Work Phone: Start: 07-01-2022 Following clinical pathway protocol [facility] Work Phone: Start: 07-01-2022 MR Brain WO contrast [facility] Work Phone: Start: 07-01-2022 MRI of brain without contrast Brain without Contrast [facility] Work Phone: Start: 07-01-2022 Verification routine [facility] Work Phone: Start: 07-01-2022 Admission procedure [facility] Work Phone: Start: 07-01-2022 Oxygen therapy [facility] Work Phone: Start: 07-01-2022 [facility] Work Phone: Start: 06-29-2022 [facility]ammography [facility] Start: 06-18-2020 Adult depression screening assessment DEPRESSION SCREENING [facility] Start: 11-17-2019 Urine microalbumin profile [facility] Start: 06-25-2019 Lipid panel Lipid Screening [facility] Start: 06-25-2019 LIPID SCREEN LIPID SCREEN [facility] Start: 2018 PNEUMOCOCCAL: 65+ (1 - PCV) PNEUMOCOCCAL: 65+ (1 - PCV) [facility] Start: 11-01-2017 PNEUMOCOCCAL: 65+ (2 - PCV) PNEUMOCOCCAL: 65+ (2 - PCV) [facility] Start: 05-26-2017 DIABETES SCREEN DIABETES SCREEN [facility] Start: 05-26-2017 Diabetes Screening Diabetes Screening [facility] Start: 11-17-2013 Colonoscopy COLONOSCOPY [facility] Start: 11-17-2013 COLORECTAL CANCER SCREENING COLORECTAL CANCER SCREENING [facility] Start: 11-17-2013 Screening for malignant neoplasm of colon [facility] Start: 2003 SHINGRIX VACCINE (1 of 2) SHINGRIX VACCINE (1 of 2) [facility] Start: 1998 COLOGUARD (FIT-DNA) COLOGUARD (FIT-DNA) [facility] Start: [address] COLONOGRAPHY [facility] Start: 1998 FECAL OCCULT BLOOD FECAL OCCULT BLOOD [facility] Start: 1998 Screening for malignant neoplasm of colon [facility] Start: 1998 SIGMOIDOSCOPY SIGMOIDOSCOPY [facility] Start: 1972 SHINGRIX VACCINE (1 of 2) SHINGRIX VACCINE (1 of 2) [facility] Start: 1971 Anxiety Screening Anxiety Screening [facility] Start: 1971 Depression Screening Depression Screening [facility] Patient referral [facility] Work Phone: [facility] Immunizations Immunization Date Immunization Notes Care Provider [facility] 08-26-2024 pneumococcal conjuga te (PCV20) vaccine, 20 valent (PREVNAR 20) Tavares Dupree DO Work Phone: [facility] 08-26-2024 Seasonal trivalent influenza vaccine, adjuvanted, preservative free Tavares Dupree DO Work Phone: [facility] 02-21-2021 COVID-19 vaccine, fu ll dose (MODERNA) Petar Alexander MICA MINER.SPIRAL WINDING MACHINE HELPER Work Phone: [facility] 01-24-2021 COVID-19 vaccine, fu ll dose (MODERNA) Petar Alexander MICA MINER.SPIRAL WINDING MACHINE HELPER Work Phone: [facility] 08-09-2019 influenza virus vacc ine, unspecified formulation Petar Alexander MICA MINER.SPIRAL WINDING MACHINE HELPER Work Phone: [facility] 11-01-2016 pneumococcal polysaccharide vaccine, 23 valent Petar Alexander MICA MINER.SPIRAL WINDING MACHINE HELPER Work Phone: [facility] Work Phone: 08-24-2015 influenza, seasonal, injectable Petar Alexander MICA MINER.SPIRAL WINDING MACHINE HELPER Work Phone: [facility] 11-17-2009 tetanus toxoid, redu padilla diphtheria toxoid, and acellular pertussis vaccine, adsorbed Petar Alexander MICA MINER.SPIRAL WINDING MACHINE HELPER Work Phone: [facility] Payers Date Payer Category Payer Medicare [id number] 2024 Self-pay [id number] 2024 Unknown [id number] 2019 Unknown [employer] PPO [id number] 2019-Present [phone] [address] [place] [address] PPO [id number] 2019 Unknown [id number] 2017 Unknown [id number] 1955 Unknown [id number] Unknown [id number] Unknown [id number] Unknown [id number] Unknown [id number] Unknown [id number] Social History Date Type Detail Facility Start: 10-25-2017 End: 07-02-2022 Tobacco smoking status IAIS Unknown if ever smoked [facility] Start: 1955 Sex Assigned At Female W [facility] Start: 06-15-2015 End: 07-02-2022 Tobacco smoking status NHIS Ex-smoker [facility] Start: 11-17-1979 End: 11-17-1999 History of tobacco use Current smoker [facility] Start: 11-17-1979 End: 11-17-1999 History of tobacco use Cigarette Smoker [facility] Start: 07-05-2021 End: 07-04-2022 Alcohol intake Current drinker of alcohol (finding) [facility] Start: 1955 Sex Assigned At Not on file [facility] Start: 06-15-2015 End: 12-14-2022 Cigarettes smoked current (pack per day) - Reported 0.5 [facility] Start: 06-15-2015 Tobacco use and exposure Smokeless tobacco non-user [facility] Start: 01-22-2021 End: 07-01-2022 Exposure to SARS-CoV-2 (event) Not sure [facility] Start: 07-04-2022 End: 12-14-2022 Tobacco use panel [facility] Adult Depression Screening Assessment 0 [facility] Functional Status Date Assessment Result Facility 07-02-2022 Functional status Ambulates [facility] Work Phone: 07-02-2022 Functional status Tolerates Activity Well [facility] Work Phone: Mental Status Date Assessment Result Facility 07-02-2022 Cognitive function Voice/Name [facility] Work Phone: 07-01-2022 Cognitive function Appropriate;Cooperativ e [facility] Work Phone: Clinical Notes 02-21-2021 to [...] ICD9: V10.3, ICD10: Z85.3 pT1b pN1mi MX ER/[place] 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 of the [...] [facility] Evaluation note No assessment inform ation available [facility] Work Phone: Evaluation note Diagnosis Personal history of malignant neoplasm of breast Encounter for screening mammogram for high-risk patient documented in this encounter [facility] Diagnosis Onset Date Resolution Status Brain TIA acute [facility] Work Phone: Evaluation note* Diagnosis Personal history of malignant neoplasm of breast- Primary documented in this encounter [facility] Diagnosis Acute right ankle pain Foot pain, right Pain in limb [facility] Work Phone: Reason for referral (narrative)* Diagnostic Procedure Only (Routine) - Closed Specialty Diagnoses / Procedures Referred By Zoë weiner Referred To Contact [facility] Diagnoses Personal history of malignant neoplasm of breast Encounter for screening mammogram for high-risk patient Procedures YARIEL SCREENING W SALINAS SCREENING BREAST DGTL SALINAS UNI/BILAT ADD ON SCREENING MAMMOGRAPHY BI 2-VIEW BREAST INC Petar Medrano APRN.SPIRAL WINDING MACHINE HELPER [address] [place] [address] [facility] [address] [place] [address] Referral ID Status Reason Start Date Expiration Date V isits Requested Visits Authorized [id number] Closed Auto-Generate d Referral 07/01/2022 11/16/2022 1 1 [facility]No reason for referral information availableW[facility] Work Phone: Reason for visit Narrative* Diagnostic Procedure Only (Routine) - Closed Specialty Diagnoses / Procedures Referred By Contac t Referred To Contact [facility] Diagnoses Personal history of malignant neoplasm of breast Encounter for screening mammogram for high-risk patient Procedures YARIEL SCREENING W SALINAS SCREENING BREAST DGTL SALINAS UNI/BILAT ADD ON SCREENING MAMMOGRAPHY BI 2-VIEW BREAST INC CAD Petar Alexander APRN.SPIRAL WINDING MACHINE HELPER [address] [place] [address] [facility] [address] [place] [address] Referral ID Status Reason Start Date Expiration [...] Will No October 25 1:21pm Power of Jackhammer Splitter Operator No October 25, 2017 1:21pm Advance Directive Response Recorded Date/ Time Living Will No July 01 6:40pm Power of Jackhammer Splitter Operator No July 01 022 6:40pm Chief Complaint and Reason for Visit Chief Complaint TIA TIA (cardiology) Reason for Visit Brain TIA Chief Complaint TIA TIA (cardiology) TIA (cardiology) Reason for Visit Brain TIA Chief Complaint Admit Date FASTING July 27, 2025 10:38am EORDER- A1C July 29, 2025 8:01am Additional Source Comments INFORMATION SOURCE (unrecogn ized section and content) DATE CREATED AUTHOR 10/26/2018 [facility] ([place]) DATE CREATED AUTHOR AUTHOR'S ORGANIZ ATION 08/13/2024 [facility] DATE CREATED AUTHOR AUTHOR'S ORGANIZ ATION 08/19/2025 [facility] Goals (unrecognized section and content) Goals may [...] MDM 30-39 MIN MD Benjamin Manjarrez Darby, MICA MINER.SPIRAL WINDING MACHINE HELPER [address] [place] [address] Referral ID Status Reason Start Date Expiration Date Visits Re quested Visits Authorized [id number] Closed 07/04/2022 11/16/2022 1 1 Reason Comments Patient Question Specialty Diagnoses / Procedures Referred By Contac t Referred To Contact Radiology / [facility] Diagnoses Xr foot and Ankle rm 10 Procedures XR GENERAL 7 Cecil Mazariegos, MICA MINER.SPIRAL WINDING MACHINE HELPER [address] [place] [address] [facility] [address] [place] [address] Referral ID Status Reason Start Date Expiration Date Visits Re quested Visits Authorized [id number] Closed 02/21/2021 05/22/2021 99 99 Care Teams (unrecognized sec tion and content) District Fire Chief Relationship Specialty Start Date End Date Tavares Moise MD PCP - General Family Practice 06/12/16 District Fire Chief Relationship Specialty Start Date End Date Tavares Moise MD PCP - General Family Practice 06/12/16 District Fire Chief Relationship Specialty Start Date End Date Tavares [...] MD Primary Care Provider, Attending Provider Active District Fire Chief Relationship Specialty Start Date End Date Tavares Moise MD PCP - [facility] 06/12/16 District Fire Chief Relationship Specialty Start Date End Date Tavares Moise MD PCP - [facility] 06/12/16 District Fire Chief Relationship Specialty Start Date End Date Tavares Moise MD PCP - [facility] 06/12/16 Team Status: Active Member Role/Relationship Status Dates Dr. Tavares Moise MD Primary care physician Active Team Status: Inactive Member Role/Relationship Status Dates Dr. Tavares Moise MD Primary care physician Active Start: July 27, 2025 End: July 27, 2025 Dr. Tavares Moise MD Attending physician Active Start: July 27, 2025 End: July 27, 2025 Dr. Tavares Moise MD Referring Provider Active Start: July 27, 2025 End: July 27, 2025 Team Status: Inactive Member Role/Relationship Status Dates Dr. Tavares Moise MD Primary care physician Active Start: July 29, 2025 End: July 29, 2025 Dr. Tavares Moise MD Attending physician Active Start: July 29, 2025 End: July 29, 2025 Dr. Tavares Moise MD Referring Provider Active Start: July 29, 2025 End: July 29, 2025 FOR RECORDS PERTAINING TO PATIENTS WHO ARE [...] BE BASED ON THE PRIMARY CLINICAL RECORDS. [facility] [employer]. provides no warranty or guarantee of the accuracy or completeness of information in this document.
== END | disposition home or self-care (01) ==
LOC: CT 14:27
PROVIDERS: PCP Family Medicine; Referring Provider Internal Medicine Pulmonary Disease; Visit Provider Internal Medicine Pulmonary Disease
DX: R91.1 Solitary pulmonary nodule (principal)
CPT/HCPCS: 71250